=== PATIENT | female | born 1955 | race Two or more races ===

== ENCOUNTER 2024-09-05 09:42 | Outpatient (OUT) | payer MEDICARE, SELFPAY ==
--- NOTE | 2024-09-05 09:53 | CT_ITS ---
[address] [address] Patient Name: MARGARETTE RUDD MRN: [id number] date: 1955 Sex: F Assigned Patient Location: CT Current Patient Location: Accession/Order Number: [id number] Exam Date: 09/05/2024 09:58 Report Date: 09/06/2024 06:56 At the request of: NON-STAFF PHYSICIAN Procedure: CT head/brain wo con EXAMINATION: CT head/brain wo con HISTORY: Subarachnoid Hemorrhage follow-up COMPARISON: No relevant comparison available. TECHNIQUE: Axial CT images were obtained without IV contrast. Dose reduction techniques were achieved by using automated exposure control and/or adjustment of mA and/or kV according to patient size and/or use of iterative reconstruction technique. FINDINGS: BRAIN: No edema, hemorrhage, mass, acute infarction, or inappropriate atrophy. CSF SPACES: No hydrocephalus, subarachnoid hemorrhage, or mass. Appropriate for age. SKULL: No fracture, mass, or other significant visible lesion. SINUSES: No significant mucosal thickening or fluid on the limited views. ORBITS: No appreciable abnormality on the limited views. OTHER: Negative CT/CT head/brain wo con IMPRESSION: 1. Normal CT appearance the brain. 2. No subarachnoid hemorrhage or residual findings. No prior studies or reports for comparison. Electronically authenticated by: SYLVESTER ONTIVEROS Date: 09/06/2024 06:56
== END 2024-09-05 09:43 | disposition home or self-care (01) ==
LOC: CT 09:46
PROVIDERS: PCP Internal Medicine
DX: I60.9 Nontraumatic subarachnoid hemorrhage, unspecified (principal)
CPT/HCPCS: 70450

== ENCOUNTER 2025-03-03 08:55 | Outpatient (OUT) | payer MEDICARE, SELFPAY | END 2025-03-03 08:56 | disposition home or self-care (01) | LOC: PST 08:55 | PROVIDERS: PCP Internal Medicine; Visit Provider Surgery | DX: Z01.818 Encounter for other preprocedural examination (principal); R19.5 Other fecal abnormalities ==

== ENCOUNTER 2025-03-11 06:30 | Day surgery (SDC) | payer MEDICARE, SELFPAY ==
--- OUTSIDE RECORDS SUMMARY | 2025-02-23 07:15 | XMS_ITS ---
Author Organization [facility] Address [address] [place] [id number] Care Team Providers Care Magnetic Tape Winder Name Role Phone BeltranBob banegasy Unavailable [phone] Dasia Riojas Unavailable [phone] REASON FOR VISIT 3 month f/u Social History Sex Assigned At : Social History Observation Description Sex Assigned At Female Encounters Encounter Location Date Provider Diagnosis Main [address] [place] [id number] 02/23/2025 Dasia Riojas Plan Of Treatment Next Appt Details Provider Name:Krista galeas, 07/16/2025 08:45:00 AM, [address] [place] [address], [phone], Progress Notes * Briseida RUDDDOB:1955 ([age] yo F)Acc No.[id number]:02/23/2025 Patient: Briseida CHEN Provider: BREEZY Justice :1955 A ge:69 Y S ex:Female Date:02/23/2025 Address:[address] [place], [place] [id number] Subjective: * Chief Complaints: * 1 . 3 month f/u. * Medical History: Objective: * Vitals: Assessment: Plan: * Treatment: Care Plan: * Problems: * Billing Information: * Visit Code: * Procedure Codes: Care Plan Details* * Electronic signature of BREEZY Gill on 03/11/2025 at 06:34 AM EDT Sign off status: Pending * Provider: OLGA Justice-JENAE Date: 0 02/23/2025 Generated for Daisy tran/Sierra/Hugo on: 0 03/11/2025 06:34 AM EDT
--- NOTE | 2025-03-11 | OP_ITS ---
OPERATION DATE: 03/11/2025 PREOPERATIVE DIAGNOSIS: Positive Cologuard. POSTOPERATIVE DIAGNOSIS: A 2 cm cecal mass, friable, sessile and 7 mm pedunculated sigmoid polyp. PROCEDURE: Colonoscopy to cecum with multiple biopsies of cecal mass and a hot snare polypectomy with clip for sigmoid polyp. SURGEON: Franko Ha M.D. ANESTHESIA: Monitored anesthesia care. ESTIMATED BLOOD LOSS: Less than 3 mL. INDICATIONS AND CONSENT: Patient is a 69-year-old female presents for positive Cologuard. She did have normal colonoscopy three years ago. Indications, risks, benefits, alternatives of proceeding with colonoscopy were explained extensively to the patient, including the risks of bleeding, colon perforation or anesthetic complications. All of her questions were answered. Informed consent was obtained. PROCEDURE: Patient brought to the operating room, placed in the left lateral decubitus position. Monitored anesthesia care was provided. Rectal exam was performed which showed no masses or blood. The scope was inserted into the anal canal. Under direct visualization was advanced. With the aid of abdominal compression, it was advanced to the cecum where cecal markings were clearly identified. Within the cecal bulb, there was noted to be a friable, sessile, irregular 2 cm mass around a fold. This was biopsied multiple times with good hemostasis. Upon withdrawal of the scope, mucosal surfaces were carefully examined. There were no other mass lesions. Within the distal sigmoid, there was noted to be a 7 mm pedunculated polyp. This was removed with hot snare. There was some bleeding from the site. A clip was attempted to be placed. Due to patient retching at the time, it was placed adjacent to the stalk; however, after copious irrigation and examination of the stalk, there appeared to be no further active bleeding. The scope was retroflexed in the anal canal. There was no significant hemorrhoidal disease. The scope was then withdrawn. Patient tolerated procedure well, was sent to recovery room in good condition. Follow up colonoscopy will depend on pathology and likely be one year from treatment of the cecal mass. CC: Thomas Valente D.O. [place]
--- OUTSIDE RECORDS SUMMARY | 2025-03-11 06:34 | XMS_ITS | Encounter Summary ---
Author Organization [facility] Address [address] [place] [address] Care Team Providers Care Detail Manager Name Role Phone Stacey Mora MD Primary Care Provider [phone] Pcp, No PARTRIDGE FARMER Primary Care Provider Unavailabl e Pcp, No PARTRIDGE FARMER Primary Care Provider Unavailabl e Source Comments In the event this information is protected by the Federal Confidentiality of Alcohol and Drug AbusePatient Records regulations: The Federal rules restrict any use of the information to criminally investigate or prosecute any alcohol or drug abuse patient.[facility] Encounter Details Date Type Department Care Team (Late st Contact Info) Description 06/10/2015 Abstract [facility] [address] [place] [address] Huseyin Oakes MD [address] [place] [address] Social History Tobacco Use Types Packs/Day Years Used Date Smoking Tobacco: Never Smokeless Tobacco: Never Alcohol Use Standard Drinks/Week Comments No 0 (1 standard drink = 0.6 oz pur e alcohol) Comments No Sex and Gender Information Value Date Recorded Sex Assigned at Not on file Legal Sex Female 5:43 PM EDT Gender Identity Not on file Sexual Orientation Not on file documented as of this encounter Functional Status * Are you deaf or do you have serious difficulty hearing? Answer Date of Assessment Author No 05/11/2015 10:02 AM EDT Martine Dumont APRN.TERRITORY DEVELOPMENT MANAGER * Are you blind or do you have serious difficulty seeing, even when wearing glasses? Answer Date of Assessment Author No 05/11/2015 10:02 AM EDT Martine Dumont APRN.TERRITORY DEVELOPMENT MANAGER * Do you have serious difficulty walking or climbing stairs? Answer Date of Assessment Author No 05/11/2015 10:02 AM EDT Martine Dumont APRN.TERRITORY DEVELOPMENT MANAGER * Do you have difficulty dressing or bathing? Answer Date of Assessment Author No 05/11/2015 10:02 AM EDT Martine Dumont APRN.TERRITORY DEVELOPMENT MANAGER * Because of a physical, mental, or emotional condition, do you have difficulty doing errands alone such as visiting a doctor's office or shopping? Answer Date of Assessment Author No 05/11/2015 10:02 AM EDT Martine Dumont APRN.TERRITORY DEVELOPMENT MANAGER documented as of this encounter Mental Status * Because of a physical, mental, or emotional condition, do you have serious difficulty concentrating, remembering, or making decisions? Answer Entry Date Author No 05/11/2015 10:02 AM EDT Martine Dumont APRN.TERRITORY DEVELOPMENT MANAGER documented in this encounter Plan of Treatment Not on file documented as of this encounter Visit Diagnoses Not on filedocumented in this encounter Care Teams Detail Manager Relationship Specialty Start Date End Date Stacey Mora MD [address] [place] [address] PCP - General Family Medicine 05/18/14 07/19/16 PcpEmi APRN PCP - General Internal Medicine 07/20/16 02/18/17 PcpEmi PARTRIDGE FARMER PCP - General Family Medicine 04/03/17 10/21/17 documented as of this encounter
--- OUTSIDE RECORDS SUMMARY | 2025-03-11 06:34 | XMS_ITS | Encounter Summary ---
Author Organization [facility] Address [address] [place] [address] Care Team Providers Care Public Health Aide Name Role Phone Unavailable Primary Care Provider Unavailabl e Source Comments In the event this information is protected by the Federal Confidentiality of Alcohol and Drug AbusePatient Records regulations: The Federal rules restrict any use of the information to criminally investigate or prosecute any alcohol or drug abuse patient.[facility] Reason for Visit * Reason Comments Symptoms Patient fell through a pavillion on Jul 17, 2024 Encounter Details Date Type Department Care Team (Late st Contact Info) Description 08/25/2024 Telephone [facility] [address] [place] [address] Kartik Child MD [address] [place] [address] Symptoms (Patient fell through a pavillion on Jul 17, 2024 ) Social History Tobacco Use Types Packs/Day Years [...] hearing? Answer Date of Assessment Author No 05/31/2016 2:14 PM EDT Garland Kaur RN * Are you blind or do you have serious difficulty seeing, even when wearing glasses? Answer Date of Assessment Author No 05/31/2016 2:14 PM EDT Garland Kaur RN * Do you have serious difficulty walking or climbing stairs? Answer Date of Assessment Author No 05/31/2016 2:14 PM EDT Garland Kaur RN * Do you have difficulty dressing or bathing? Answer Date of Assessment Author No 05/31/2016 2:14 PM EDT Garland Kaur RN * Because of a physical, mental, or emotional condition, do you have difficulty doing errands alone such as visiting a doctor's office or shopping? Answer Date of Assessment Author No 05/31/2016 2:14 PM EDT Garland Kaur RN documented as of this encounter Mental Status * Because of a physical, mental, or emotional condition, do you have serious difficulty concentrating, remembering, or making decisions? Answer Entry Date Author No 05/31/2016 2:14 PM EDT Garland Kaur RN documented in this encounter Miscellaneous Notes * Telephone Encounter - Ni Allison RN - 08/25/2024 11:29 AM EST Spoke with Briseida, states she fell about a month ago and still have pain associated with the fall. She was wondering if she needs to f/u with Dr. Child. She does state that she has a f/u appt. With herlocal neurologist. She will let us know if she needs to f/u with Danyell in the near future after meeting with her Dr. Hunter * Telephone Encounter - Rosalba Alvarado - 08/25/2024 9:09 AM EST CV PHONE Name of caller : Briseida Relationship to patient : Self If not self Will need patient permission to release results or disclose health information with called documented in fyi. Patient identified by Name and Date of . ( Briseida Turner, 1955). Yes Number to return call [phone] Reason for Call: Symptoms Call: Symptoms: patient states she still feels a little light headed, neck is real soar, right knee hurts, shoulder was messed up, small fracture in back, since she fell through a roof on a pavilion on Jul 17 she hit a beam and then hit the concrete and was rushed to the hospital and stayed there for 5 days and had a brain bleed and want to know if she should make an appointment to see Dr. Child. Duration: >48 hours Progression: worse Pain level: 0 on a scale of 0-10. Neck is an 8 Type of pain (feels like): aching Frequency: intermittent Location of pain: neck and knee and back has a crack [facility] Thank you calling [facility]. You will receive a return call within 48hours ( or 2 business days if close to the weekend). If you feel that this is an urgent issue and needs immediate attention, it is recommended that you contact your primary care provider office or proceed to your nearest Urgent Care Center of Emergency Room ED for evaluation/treatment. documented in this encounter Plan of Treatment Not on file documented as of this encounter Visit Diagnoses Not on filedocumented in this encounter
--- OUTSIDE RECORDS SUMMARY | 2025-03-11 06:34 | XMS_ITS | Clinical Summary ---
Author Organization [facility] Address [address] [place] [address] Care Team Providers Care Kiln Transfer Operator Name Role Phone Thomas Valente Primary Care Provider Allergies No known active allergies Medications albuterol (PROVENTIL) (5 MG/ML) 0.5% nebulizer solution Take 0.5 mLs by nebulization every 6 hours as needed for Wheezing Active cetirizine (ZYRTEC) 10 MG tablet Take 1 tablet by mouth daily Active omeprazole (PRILOSEC) 20 MG delayed release capsule Take 1 capsule by mouth daily Active montelukast (SINGULAIR) 10 MG tablet Take 1 tablet by mouth nightly Active aspirin 81 MG chewable tablet Take 1 tablet by mouth daily 30 tablet 3 4 Active butalbital-acet aminophen-caffe ine (FIORICET, ESGIC) 50-325-40 MG per tabletIndicatio ns:Subarachnoid hemorrhage (HCC) Take 1 tablet by mouth every 4 hours as needed for Headaches Max Daily Amount: 6 tablets 30 tablet 4 Active gabapentin (NEURONTIN) 300 MG capsule Take 1 capsule by mouth 3 times daily for 7 days. 21 capsule 4 Active sennosides-docu sate sodium (SENOKOT-S) 8.6-50 MG tablet Take 1 tablet by mouth 2 times daily 60 tablet 4 Active Active Problems Problem Noted Date Diagnosed Date Subarachnoid hemorrhage 07/17/2024 Sternal fracture 07/17/2024 Traumatic cephalohematoma 07/17/2024 Social History Tobacco Use Types Packs/Day Years Used Date Smoking Tobacco: Never Smokeless Tobacco: Never Tobacco Cessation:Counseling Given: Not Answered Alcohol Use Standard Drinks/Week Comments Not Currently 0 (1 standard drink = 0.6 oz pur e alcohol) occasional [facility] Utilities Answer Date Recorded In the past 12 months has th e electric, gas, oil, or water company threatened to shut off services in your home? Patient declined 07/17/2024 AUDIT-C Answer Date Recorded Q1: How often do you have a drink containing alcohol? Never 07/17/2024 Q2: How many drinks containi ng alcohol do you have on a typical day when you are drinking? Patient does not drink Q3: How often do you have si x or more drinks on one occasion? Never 07/17/2024 Hunger Vital Sign Answer Date Recorded Within the past 12 months, y ou worried that your food would run out before you got the money to buy more. Patient declined Within the past 12 months, t he food you bought just didn't last and you didn't have money to get more. Patient declined PRAPARE - Transportation Answer Date Re corded In the past 12 months, has l ack of transportation kept you from medical appointments or from getting medications? Patient declined 07/17/2024 In the past 12 months, has l ack of transportation kept you from meetings, work, or from getting things needed for daily living? Patient declined 07/17/2024 Housing Stability Vital Sign Answer Wally e Recorded In the last 12 months, was t here a time when you were not able to pay the mortgage or rent on time? Patient declined 07/17/20 24 In the past 12 months, how m any times have you moved where you were living? 0 07/17/2024 At any time in the past 12 m [facility], were you homeless or living in a custodial (including now)? Patient declined 07/17/2024 Food Insecurity Answer Date Recorded Within the past 12 months, y ou worried that your food would run out before you got the money to buy more. 98 07/17/2024 Within the past 12 months, t he food you bought just didn't last and you didn't have money to get more. 98 07/17/2024 Interpersonal Safety Domain Source: IP Abuse Scr eening Answer Date Recorded Physical abuse Denies 07/17/2024 Verbal abuse Denies 07/17/2024 Emotional abuse Denies 07/17/2024 Financial abuse Denies 07/17/2024 Sexual abuse Denies 07/17/2024 Comments Unknown Sex and Gender Information Value Date Recorded Sex Assigned at Not on file Legal Sex Female 11:59 AM EST Gender Identity Not on file Sexual Orientation Not on file Last Filed Vital Signs Vital Sign Reading Time Taken Comments Blood Pressure 150/84 09/29/2024 10:31 AM EST Pulse 81 09/29/2024 10:31 AM EST Temperature 36.2 C (97.1 F) 07/21/2024 10:56 AM EDT Respiratory Rate 15 09/29/2024 10:31 AM EST Oxygen Saturation 97% 07/21/2024 10:56 AM EDT Inhaled Oxygen Concentration - - Weight 66.7 kg (147 lb) 09/29/2024 10:31 AM EST Height 160 cm (5' 3 ) 09/29/2024 10:31 AM EST Body Mass Index 26.04 09/29/2024 10:31 AM EST Plan of Treatment Health Maintenance Due Date Last Done Comments Depression Screen 1968 Hepatitis C screen 1974 Lipids 1996 Colonoscopy 2001 Colorectal Cancer Screen 2001 FIT/FOBT: Average risk 2001 Fecal-DNA (Cologuard): Average risk 2001 Sigmoidoscopy/CT colonography 2001 COVID-19 Vaccine ( season) 2024 Annual Wellness Visit (Medicare Advantage) 10/22/2024 Flu vaccine (Season Ended) 05/22/202509/02, 08/17/2020, 10/09/2018 A1C test (Diabetic or Prediabetic) 07/17/2025 07/17/2024 Breast cancer screen 07/16/2026 07/16/2024, 02/01/2023, 08/03/2021, Additional history exists Pneumococcal 50+ years Vaccine (3 of 3 - PCV20 or PCV21) 09/02/2026 09/02/2021, 04/25/2012, 02/20/2008 DTaP/Tdap/Td vaccine (2 - Td or Tdap) 11/04/2028 11/04/2018 Respiratory Syncytial Virus (RSV) or age 60 yrs+ (1 - 1-dose 75+ series) 2031 DEXA (modify frequency per FRAX score) Completed 08/03/2021 Shingles vaccine Completed 04/03/2022, 02/07/2022 Hepatitis A vaccine Aged Out No longe r eligible based on patient's age to complete this topic Hepatitis B vaccine Aged Out No longe r eligible based on patient's age to complete this topic Hib vaccine Aged Out No longer eligi ble based on patient's age to complete this topic Meningococcal (ACWY) vaccine Aged Out No longer eligible based on patient's age to complete this topic Meningococcal B vaccine Aged Out No l onger eligible based on patient's age to complete this topic Polio vaccine Aged Out No longer elig ible based on patient's age to complete this topic Procedures Procedure Name Priority Date/Time Associated Diagnosis Comments HEMOGLOBIN A1C STAT 07/17/2024 1:16 PM EDT from Last 3 Months or Most Recently Relevant to Health Maintenance Results * Hemoglobin A1C (07/17/2024 1:16 PM EDT) Hemoglobin A1C 6.0 4.0 - 6.0 % 07/17/2024 1:16 PM EDT [facility] Estimated Avg Glucose 126 mg/dL 07/17/2024 1:16 PM EDT [facility] Comment: The ADA and AACC recommend providing the estimated average glucose result to permit better patient understanding of their HBA1c result. 07/17/2024 1:16 PM EDT 07/17/2024 1:21 PM EDT us Nelson Lo MD CHEMISTRY ORDERABLES Final Resu lt [facility] [address] [place] [address], [facility] [phone] from Last 3 Months or Most Recently Relevant to Health Maintenance Insurance [employer] MEDICARE Advance Directives * Full Code (Latest Code Status on File) Date Activated Date Inactivated Comments 07/17/2024 4:51 PM 07/21/2024 5:53 PM Healthcare Agents on File Name Relationship Healthcare Agent Relationshi p Communication Rah Foy Unknown Primary Decision Maker Kamran Foy Child Secondary Decision Maker Care Teams Kiln Transfer Operator Relationship Specialty Start Date End Date Thomas Valente DO [facility] [place] [address] PCP - General Internal Medicine 08/27/24
--- OUTSIDE RECORDS SUMMARY | 2025-03-11 06:34 | XMS_ITS | Encounter Summary ---
Author Organization [facility] Address [address] [place] [address] Care Team Providers Care Crossing Guard Name Role Phone Stacey Mora MD Primary Care Provider [phone] Pcp, No SOLAR WATER HEATER INSTALLER Primary Care Provider Unavailabl e Pcp, No SOLAR WATER HEATER INSTALLER Primary Care Provider Unavailabl e Source Comments In the event this information is protected by the Federal Confidentiality of Alcohol and Drug AbusePatient Records regulations: The Federal rules restrict any use of the information to criminally investigate or prosecute any alcohol or drug abuse patient.[facility] Encounter Details Date Type Department Care Team (Late st Contact Info) Description 03/09/2015 Abstract [facility] [address] [place] [address] aKhlil Cerna MD [address] [place] [id number] Social History Tobacco Use Types Packs/Day Years [...] hearing? Answer Date of Assessment Author No 02/19/2015 11:00 AM Ariana Gray MA * Are you blind or do you have serious difficulty seeing, even when wearing glasses? Answer Date of Assessment Author No 02/19/2015 11:00 AM Ariana Gray MA * Do you have serious difficulty walking or climbing stairs? Answer Date of Assessment Author No 02/19/2015 11:00 AM Ariana Gray MA * Do you have difficulty dressing or bathing? Answer Date of Assessment Author No 02/19/2015 11:00 AM Ariana Gray MA * Because of a physical, mental, or emotional condition, do you have difficulty doing errands alone such as visiting a doctor's office or shopping? Answer Date of Assessment Author No 02/19/2015 11:00 AM Ariana Gray MA documented as of this encounter Mental Status * Because of a physical, mental, or emotional condition, do you have serious difficulty concentrating, remembering, or making decisions? Answer Entry Date Author No 02/19/2015 11:00 AM Ariana Gray MA documented in this encounter Plan of Treatment Not on file documented as of this encounter Visit Diagnoses Not on filedocumented in this encounter Care Teams Crossing Guard Relationship Specialty Start Date End Date Stacey Mora MD [address] [place] [address] PCP - General Family Medicine 05/18/14 07/19/16 PcpEmi APRN PCP - General Internal Medicine 07/20/16 02/18/17 PcpEmi SOLAR WATER HEATER INSTALLER PCP - General Family Medicine 04/03/17 10/21/17 documented as of this encounter
--- OUTSIDE RECORDS SUMMARY | 2025-03-11 06:34 | XMS_ITS | Encounter Summary ---
Author Organization [facility] Address [address] [place] [address] Care Team Providers Care Mail Carriers Supervisor Name Role Phone Stacey Mora MD Primary Care Provider [phone] Pcp, No MIDDLE SCHOOL LIBRARIAN Primary Care Provider Unavailabl e Pcp, No MIDDLE SCHOOL LIBRARIAN Primary Care Provider Unavailabl e Source Comments In the event this information is protected by the Federal Confidentiality of Alcohol and Drug AbusePatient Records regulations: The Federal rules restrict any use of the information to criminally investigate or prosecute any alcohol or drug abuse patient.[facility] Encounter Details Date Type Department Care Team (Late st Contact Info) Description 05/31/2015 Abstract [facility] [address] [place] [address] Huseyin Oakes MD [address] [place] [address] Social History Tobacco Use Types [...] No 05/11/2015 10:02 AM EDT Martine Dumont APRN.COLOR SHOP HELPER * Are you blind or do you have serious difficulty seeing, even when wearing glasses? Answer Date of Assessment Author No 05/11/2015 10:02 AM EDT Martine Dumont APRN.COLOR SHOP HELPER * Do you have serious difficulty walking or climbing stairs? Answer Date of Assessment Author No 05/11/2015 10:02 AM EDT Martine Dumont APRN.COLOR SHOP HELPER * Do you have difficulty dressing or bathing? Answer Date of Assessment Author No 05/11/2015 10:02 AM EDT Martine Dumont APRN.COLOR SHOP HELPER * Because of a physical, mental, or emotional condition, do you have difficulty doing errands alone such as visiting a doctor's office or shopping? Answer Date of Assessment Author No 05/11/2015 10:02 AM EDT Martine Dumont APRN.COLOR SHOP HELPER documented as of this encounter Mental Status * Because of a physical, mental, or emotional condition, do you have serious difficulty concentrating, remembering, or making decisions? Answer Entry Date Author No 05/11/2015 10:02 AM EDT Martine Dumont APRN.COLOR SHOP HELPER documented in this encounter Plan of Treatment Not on file documented as of this encounter Visit Diagnoses Not on filedocumented in this encounter Care Teams Mail Carriers Supervisor Relationship Specialty Start Date End Date Stacey Mora MD [address] [place] [address] PCP - General Family Medicine 05/18/14 07/19/16 PcpEmi APRN PCP - General Internal Medicine 07/20/16 02/18/17 PcpEmi MIDDLE SCHOOL LIBRARIAN PCP - General Family Medicine 04/03/17 10/21/17 documented as of this encounter
--- OUTSIDE RECORDS SUMMARY | 2025-03-11 06:34 | XMS_ITS | Clinical Summary ---
Author Organization [facility] Address [id number] [address] [place] [address] Care Team Providers Care Learning Design Specialist Name Role Phone Ambrosio Wright DO, Charles L Primary Care Provider Allergies No known active allergies Medications estradioL (ESTRACE) 1 mg tablet Take 1 tablet by mouth once daily 30 tablet 06/09/2021 Active omeprazole (PriLOSEC) 20 mg capsule Take 20 mg by mouth daily. Active calcium carbonate-vitami n D3 (CALCIUM 500 + D) 500 mg(1,250mg) -200 units per tablet Take 1 tablet by mouth 2 (two) times a day with meals. Active cholecalciferol, vitamin D3, 400 units tablet Take 400 Units by mouth daily. Active montelukast (SINGULAIR) 10 mg tablet Take 10 mg by mouth nightly. Active aspirin 81 mg Take 81 mg by mouth daily. Active cetirizine (ZyrTEC) 10 mg tablet Take 10 mg by mouth daily. Active sertraline (ZOLOFT) 50 mg tablet Take 50 mg by mouth daily. Active albuterol (PROVENTIL HFA;VENTOLIN HFA) 90 mcg/actuation inhaler Inhale 2 puffs every 6 (six) hours as needed for wheezing. Active qnpflcsl-afdd-OR -calcium &mins (THERAGRAN-M) 9 mg iron-400 mcg tablet Take 1 tablet by mouth daily. Active Family History Medical History Relation Name Comments Breast cancer Neg Hx Social History Tobacco Use Types Packs/Day Years Used Date Smoking Tobacco: Never Assessed Smokeless Tobacco: Never Alcohol Use Standard Drinks/Week Comments Defer 0 (1 standard drink = 0.6 oz pur e alcohol) Childcare Answer Date Recorded Childcare Unknown 04/02/2019 Employment Answer Date Recorded Employment Unknown 04/02/2019 Purpose - Life Answer Date Recorded Purpose and direction in life Unknown Comments No Sex and Gender Information Value Date Recorded Sex Assigned at Female 12/15/2021 4:29 AM EST Legal Sex Female 11:39 AM EDT Gender Identity Not on file Sexual Orientation Not on file Last Filed Vital Signs Vital Sign Reading Time Taken Comments Blood Pressure 122/88 12/15/2021 8:45 AM EST Pulse 69 12/15/2021 8:45 AM EST Temperature 36.4 C (97.6 F) 12/15/2021 6:33 AM EST Respiratory Rate 15 12/15/2021 8:45 AM EST Oxygen Saturation 91% 12/15/2021 8:45 AM EST Inhaled Oxygen Concentration - - Weight 66.7 kg (147 lb) 07/16/2024 2:25 PM EDT Height 160 cm (5' 3 ) 07/16/2024 2:25 PM EDT Body Mass Index 26.04 07/16/2024 2:25 PM EDT Plan of Treatment Health Maintenance Due Date Last Done Comments Depression Screening 1968 Tobacco Screening 1968 Adult BMI Follow Up Plan 1974 Fall Risk Screening 2021 COVID-19 Vaccine (2023-2 5 season) 2024 09/29/2021, 02/04/2021, 01/07/2021 Influenza Vaccine 06/22/2025 08/13/2023, , 08/17/2020, Additional history exists Adult BMI Screening 07/16/2025 07/16/2024 DTaP,Tdap and Td Vaccines (2 - Td or Tdap) 11/04/2028 11/04/2018 Zoster (Shingles) Vaccine Completed 04/03/2022, Medical Devices Implanted Type Area Demolition Hammer Operator Device Identifier Shelf Expiration Date Model / Serial / Lot Other Implant Other Implant Description:pipeline flex Em bolization device - conditional 3T or less, 720 Gauss/cm or less max DAQUAN 4W/kg for 15min Insurance MEDICAID [place] [employer] MEDICARE Care Teams Learning Design Specialist Relationship Specialty Start Date End Date Thomas Valente Jr., [facility] [place] [address] PCP - General Internal Medicine 12/14/21
--- OUTSIDE RECORDS SUMMARY | 2025-03-11 06:34 | XMS_ITS | Encounter Summary ---
Author Organization [facility] Address [address] [place] [address] Care Team Providers Care In Store Marketing Representative Name Role Phone Unavailable Primary Care Provider Unavailabl e Source Comments In the event this information is protected by the Federal Confidentiality of Alcohol and Drug AbusePatient Records regulations: The Federal rules restrict any use of the information to criminally investigate or prosecute any alcohol or drug abuse patient.[facility] Encounter Details Date Type Department Care Team (Late st Contact Info) Description 2021 [place] [address] Provider, [facility] Medicare Coverage of Physical Exams Social History Tobacco Use Types Packs/Day Years [...] of Assessment Author No 05/31/2016 2:14 PM Garland Avilez RN * Do you have difficulty dressing or bathing? Answer Date of Assessment Author No 05/31/2016 2:14 PM Garland Avilez RN * Because of a physical, mental, or emotional condition, do you have difficulty doing errands alone such as visiting a doctor's office or shopping? Answer Date of Assessment Author No 05/31/2016 2:14 PM Garland Avilez RN documented as of this encounter Mental Status * Because of a physical, mental, or emotional condition, do you have serious difficulty concentrating, remembering, or making decisions? Answer Entry Date Author No 05/31/2016 2:14 PM Garland Avilez RN documented in this encounter Plan of Treatment Not on file documented as of this encounter Visit Diagnoses Not on filedocumented in this encounter
--- OUTSIDE RECORDS SUMMARY | 2025-03-11 06:34 | XMS_ITS | Encounter Summary ---
Author Organization [facility] Address [address] [place] [id number] Care Team Providers Care Nursing Unit Clerk Name Role Phone Unavailable Primary Care Provider Unavailabl e Source Comments In the event this information is protected by the Federal Confidentiality of Alcohol and Drug AbusePatient Records regulations: The Federal rules restrict any use of the information to criminally investigate or prosecute any alcohol or drug abuse patient.[facility] Encounter Details Date Type Department Care Team (Late st Contact Info) Description 05/19/2020 Patient [place] [address] Provider, Miah Out of Network Letter Social History Tobacco Use Types Packs/Day Years [...] of Assessment Author No 05/31/2016 2:14 PM DEEPAT Garland Kaur RN * Because of a [...]
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
--- OUTSIDE RECORDS SUMMARY | 2025-03-11 06:34 | XMS_ITS | Encounter Summary ---
Author Organization [facility] Address [address] [place] [address] Care Team Providers Care Die Cutter Name Role Phone Stacey Mora MD Primary Care Provider [phone] Pcp, No REAL ESTATE DIRECTOR Primary Care Provider Unavailabl e Pcp, No REAL ESTATE DIRECTOR Primary Care Provider Unavailabl e Source Comments In the event this information is protected by the Federal Confidentiality of Alcohol and Drug AbusePatient Records regulations: The Federal rules restrict any use of the information to criminally investigate or prosecute any alcohol or drug abuse patient.[facility] Encounter Details Date Type Department Care Team (Late st Contact Info) Description 03/25/2015 Abstract [facility] [address] [place] [address] Huseyin Oakes MD [address] [place] [address] Social History Tobacco Use Types [...] hearing? Answer Date of Assessment Author No 03/19/2015 3:30 PM EDT Ricardo Martines RN * Are you blind or do you have serious difficulty seeing, even when wearing glasses? Answer Date of Assessment Author No 03/19/2015 3:30 PM EDT Ricardo Martines RN * Do you have serious difficulty walking or climbing stairs? Answer Date of Assessment Author No 03/19/2015 3:30 PM EDT Ricardo Martines RN * Do you have difficulty dressing or bathing? Answer Date of Assessment Author No 03/19/2015 3:30 PM EDT Ricardo Martines RN * Because of a physical, mental, or emotional condition, do you have difficulty doing errands alone such as visiting a doctor's office or shopping? Answer Date of Assessment Author No 03/19/2015 3:30 PM EDT Ricardo Martines RN documented as of this encounter Mental Status * Because of a physical, mental, or emotional condition, do you have serious difficulty concentrating, remembering, or making decisions? Answer Entry Date Author No 03/19/2015 3:30 PM EDT Ricardo Martines RN documented in this encounter Plan of Treatment Not on file documented as of this encounter Visit Diagnoses Not on filedocumented in this encounter Care Teams Die Cutter Relationship Specialty Start Date End Date Stacey Mora MD [address] [place] [address] PCP - General Family Medicine 05/18/14 07/19/16 PcpEmi REAL ESTATE DIRECTOR PCP - General Internal Medicine 07/20/16 02/18/17 PcpEmi, REAL ESTATE DIRECTOR PCP - General Family Medicine 04/03/17 10/21/17 documented as of this encounter
--- OUTSIDE RECORDS SUMMARY | 2025-03-11 06:34 | XMS_ITS | Referral Summary ---
Author Organization [facility] Address [address] [place] [address] Care Team Providers Care Tobacco Educator Name Role Phone Unavailable Primary Care Provider Unavailabl e Encounters Date Type Department Care Team Description 01/07/2025 - 01/07/2025 11:59 PM EDT Hospital Encounter [facility] Radiology External Films [address] [place] [address] Discharge Disposition: Home or Self Care (01) 01/01/2025 9:20 AM EDT Follow-Up [facility] [address] [place] [address] Will Ruth MD Compression fx, thoracic spine, sequela (Primary Dx) 12/24/2024 Telephone [facility] [address] [place] [address] [place] [address] Susan Solis MA imaging order 12/18/2024 9:50 AM EST Office Visit [facility] [address] [place] [address] Will Ruth MD Spondylolisthesis at L4-L5 level (Primary Dx); 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 from Last 3 Months Allergies No known active allergies Social History Tobacco Use Types Packs/Day Years Used Date Smoking Tobacco: Never Tobacco Cessation:Counseling Given: Not Answered Alcohol Use Standard Drinks/Week Comments Not Currently 3 (1 standard drink = 0.6 oz pur e alcohol) IN Safety & Environment Answer Date Rec orded Fear of Current or Ex-Partner Not on file Emotionally Abused Not on file 12/13/2023 Physically Abused Not on file 12/13/2023 Sexually Abused Not on file 12/13/2023 Physically or Sexually Abused Not on file Sex and Gender Information Value Date Recorded Sex Assigned at Not on file Gender Identity Not on file Sexual Orientation Not on file Last Filed Vital Signs Vital Sign Reading Time Taken Comments Blood Pressure 124/75 12/27/2021 11:12 AM EST Pulse 82 12/27/2021 11:12 AM EST Temperature - - Respiratory Rate - - Oxygen Saturation - - Inhaled Oxygen Concentration - - Weight 72.6 kg (160 lb) 01/01/2025 1:54 PM EDT Height 160 cm (5' 3 ) 01/01/2025 1:54 PM EDT Body Mass Index 28.34 01/01/2025 1:54 PM EDT Plan of Treatment Not on file Procedures Procedure Name Priority Date/Time Associated Diagnosis Comments MR TRANSFER OF OUTSIDE FILMS Routine 01/07/2025 12:00 AM EDT from Last 3 Months Results * MR transfer of outside films (01/07/2025 12:00 AM EDT) Narrative IMAGING - 01/07/2025 9:21 AM EDT This order has been auto-finalized and does not contain a result. Will Ruth MD IMG MRI PROCEDURES IMAGING from Last 3 Months
--- OUTSIDE RECORDS SUMMARY | 2025-03-11 06:34 | XMS_ITS | Encounter Summary ---
Author Organization [facility] Address [address] [place] [address] Care Team Providers Care Blood Bank Laboratory Technician Name Role Phone Thomas Valente Primary Care Provider + [phone] Encounter Details Date Type Department Care Team ([facility] st Contact Info) Description 09/23/2024 Transcribe Orders [facility] [address] [place] [address] Wyatt Chowdhury Social History Tobacco Use Types Packs/Day Years Used Date Smoking Tobacco: Never Smokeless Tobacco: Never Alcohol Use Standard Drinks/Week Comments Yes 0 (1 standard drink = 0.6 oz pur e alcohol) occasional [facility] Utilities Answer Date Recorded In the past 12 months has [employer], gas, oil, or water company threatened [...] any time in the past [address] [facility], were you homeless or living in a prison (including now)? Patient declined 07/17/2024 Food Insecurity [...] on file documented as of this encounter Plan of Treatment Not on file documented as of this encounter Visit Diagnoses Not on filedocumented in this encounter Care Teams Blood Bank Laboratory Technician Relationship Specialty Start Date End Date Thomas Valente DO [address] [place] [phone] PCP - General Internal Medicine 08/27/24 documented as of this encounter
--- OUTSIDE RECORDS SUMMARY | 2025-03-11 06:34 | XMS_ITS | Encounter Summary ---
Author Organization [facility] Address [address] [place] [address] Care Team Providers Care Maintenance Supervisor Name Role Phone Stacey Mora MD Primary Care Provider [phone] Pcp, No DUMBWAITER OPERATOR Primary Care Provider Unavailabl e Pcp, No DUMBWAITER OPERATOR Primary Care Provider Unavailabl e Source Comments In the event this information is protected by the Federal Confidentiality of Alcohol and Drug AbusePatient Records regulations: The Federal rules restrict any use of the information to criminally investigate or prosecute any alcohol or drug abuse patient.[facility] Encounter Details Date Type Department Care Team (Late st Contact Info) Description 04/16/2015 Abstract [facility] [address] [place] [address] Huseyin Oakes MD [address] [place] [address] Social History Tobacco Use Types [...] hearing? Answer Date of Assessment Author No 03/26/2015 2:35 PM EDT Colten Pérez MA * Are you blind or do you have serious difficulty seeing, even when wearing glasses? Answer Date of Assessment Author No 03/26/2015 2:35 PM EDT Colten Pérez MA * Do you have serious difficulty walking or climbing stairs? Answer Date of Assessment Author No 03/26/2015 2:35 PM EDT Colten Pérez MA * Do you have difficulty dressing or bathing? Answer Date of Assessment Author No 03/26/2015 2:35 PM EDT Colten Pérez MA * Because of a physical, mental, or emotional condition, do you have difficulty doing errands alone such as visiting a doctor's office or shopping? Answer Date of Assessment Author No 03/26/2015 2:35 PM EDT Colten Pérez MA documented as of this encounter Mental Status * Because of a physical, mental, or emotional condition, do you have serious difficulty concentrating, remembering, or making decisions? Answer Entry Date Author No 03/26/2015 2:35 PM EDT Colten Pérez MA documented in this encounter Plan of Treatment Not on file documented as of this encounter Visit Diagnoses Not on filedocumented in this encounter Care Teams Maintenance Supervisor Relationship Specialty Start Date End Date Stacey Mora MD [address] [place] [address] PCP - General Family Medicine 05/18/14 07/19/16 Pcp, Emi, DUMBWAITER OPERATOR PCP - General Internal Medicine 07/20/16 02/18/17 Pcp, No, DUMBWAITER OPERATOR PCP - General Family Medicine 04/03/17 10/21/17 documented as of this encounter
--- OUTSIDE RECORDS SUMMARY | 2025-03-11 06:34 | XMS_ITS | Clinical Summary ---
Author Organization [facility] Address [address] [place] [address] Care Team Providers Care Sound Installation Worker Name Role Phone Thomas Valente MD Primary Care Provider + [phone] Allergies No known active allergies Medications albuterol HFA 90 mcg/act inhaler Inhale 2 puffs in the morning and 2 puffs before bedtime. 4 Active aspirin 325 MG tablet Take 325 mg by mouth Daily Active montelukast (Singulair) 10 MG tablet Take 10 mg by mouth Daily Active naproxen (Naprosyn) 500 MG tablet Take 500 mg by mouth in the morning and 500 mg in the evening. Take with meals. 3 Active omeprazole (PriLOSEC) [address] capsule Take 20 mg by mouth Daily Active Peak Air Peak Flow Meter device USE DIRECTED 4 Active phentermine (Adipex-P) 37.5 MG tablet Take 37.5 mg by mouth in the morning. Take before meals. 4 Active revefenacin (Yupelri) 175 MCG/3ML nebulizer solution Take 175 mcg by nebulization 1 (one) time each day at the same time Active rosuvastatin (Crestor) 5 MG tablet Take 5 mg by mouth Daily 4 Active traZODone (Desyrel) 150 MG tablet Take 150 mg by mouth at bedtime 3 Active ibuprofen 600 MG tablet Take 600 mg by mouth every 8 (eight) hours Active Active Problems Problem Noted Date Diagnosed Date Age-related nuclear cataract of left eye 024 Nuclear senile cataract 02/18/2024 Dermatochalasis of left upper eyelid 02/18/2024 Epiretinal membrane 02/18/2024 Excess skin of eyelid 02/18/2024 Pseudophakia 02/18/2024 Retinal hemorrhage 02/18/2024 Lipoma of right thigh 07/20/2016 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 Postop hypoxia requiring supplemental oxygen. PLAN: -Wean oxygen to keep oxygen saturation above 93% -Desat study 03/19/15: home oxygen needed; 2L at rest and 3 L with exertion A face to face encounter was performed during this hospital admission regarding the need for oxygen. The patient verbalized understanding and consents to this therapy . Acute postoperative pain 03/17/2015 Overview (02/18/2024): Status post thoracotomy, resection mediastinal mass on 03/16/15. Currently has pleural marely drain in place. Current regimen: fentanyl/bupivicaine epidural [...] daily prn. . Intracranial aneurysm 01/05/2015 Overview (02/18/2024): Unruptured left supraclinoid ICA aneurysm 05/10 . Social History Tobacco Use Types Packs/Day Years Used Date Smoking Tobacco: Never Smokeless Tobacco: Never Tobacco Cessation:Counseling Given: Not Answered Alcohol Use Standard Drinks/Week Comments Not Currently 0 (1 standard drink = 0.6 oz pur e alcohol) Comments Unknown Sex and Gender Information Value Date Recorded Sex Assigned at Not on file Legal Sex Female 7:29 PM EDT Gender Identity Not on file Sexual Orientation Not on file Last Filed Vital Signs Vital Sign Reading Time Taken Comments Blood Pressure 132/80 10/27/2021 12:00 PM EST Pulse - - Temperature - - Respiratory Rate - - Oxygen Saturation - - Inhaled Oxygen Concentration - - Weight 68 kg (150 lb) 02/18/2024 1:55 PM EDT Height 160 cm (5' 3 ) 02/18/2024 1:55 PM EDT Body Mass Index 26.57 02/18/2024 1:55 PM EDT Plan of Treatment Health Maintenance Due Date Last Done Comments CT Colonography 1956 FIT-DNA 1956 FIT 1955 FOBT 1955 Sigmoidoscopy 1955 Influenza Vaccine (Season Ended) 2025 09/02/2021, 08/17/2020, 10/09/2018 Mammogram 07/16/2025 07/16/2024, 01/20, 08/03/2021, Additional history exists Pneumococcal Vaccine: 65+ Ye ars (3 of 3 - PCV20 or PCV21) 09/02/2026 09/02/2021, 04/25/2012, 02/20/2008 Colonoscopy 12/15/2031 12/15/2021 Colorectal Cancer Screening 12/15/2031 Procedures Procedure Name Priority Date/Time Associated Diagnosis Comments COLONOSCOPY Routine 12/15/2021 12:00 PM EST from Last 3 Months or Most Recently Relevant to Health Maintenance Results * Colonoscopy (12/15/2021 12:00 PM EST) Anatomical Region Laterality Modality Endoscopy 12/15/2021 12:0 0 PM EST Narrative 12/15/2021 12:00 PM EST PERFORMED AT [facility] LOCATION:[id number] Procedure Note CONVERSION, GENERIC - 03/07/2023 PERFORMED AT [facility] LOCATION:[id number] us Ash Rajan MD ENDOSCOPY PROCEDURE ORDERABL ES Final Result from Last 3 Months or Most Recently Relevant to Health Maintenance Insurance MEDICAID [place] [employer] MEDICARE ADVANTAGE Care Teams Sound Installation Worker Relationship Specialty Start Date End Date Thomas Valente MD [facility] [place] [address] PCP - General Internal Medicine 02/18/24
--- OUTSIDE RECORDS SUMMARY | 2025-03-11 06:34 | XMS_ITS | Encounter Summary ---
Author Organization [facility] Address [address] [place] [address] Care Team Providers Care Tanning Wheel Filler Name Role Phone Thomas Valente Primary Care Provider + [phone] Encounter Details Date Type Department Care Team (Late st Contact Info) Description 09/08/2024 Orders Only [facility] Neuroscience [place], [facility] Neurosurgery [address] [place] [address], [address] [place] [address] Provider, MD Giacomo Social History Tobacco Use Types Packs/Day Years Used Date Smoking Tobacco: Never Smokeless Tobacco: Never Alcohol Use Standard Drinks/Week Comments Yes 0 (1 standard drink = 0.6 oz pur e alcohol) occasional [facility] Utilities Answer Date Recorded In the past 12 months has [employer], gas, oil, or water company threatened [...] any time in the past 12 m [facility], were you homeless or living in a fpc (including now)? Patient declined 07/17/2024 Food Insecurity [...] on file documented as of this encounter Procedures Procedure Name Priority Date/Time Associated Diagnosis Comments CT HEAD WO CONTRAST Routine 09/06/2024 8:51 AM EST documented in this encounter Results * CT HEAD WO CONTRAST (09/06/2024 8:51 AM EST) Anatomical Region Laterality Modality Head Computed Tomogra phy us Historical Provider MD MISTRY CT ORDERABLES Final R esult documented in this encounter Visit Diagnoses Not on filedocumented in this encounter Care Teams Tanning Wheel Filler Relationship Specialty Start Date End Date Thomas Valente DO [address] [place] [address] PCP - General Internal Medicine 08/27/24 documented as of this encounter
--- OUTSIDE RECORDS SUMMARY | 2025-03-11 06:34 | XMS_ITS | Clinical Summary ---
Author Organization [facility] Address [address] [place] [address] Care Team Providers Care Hat Model Name Role Phone Unavailable Primary Care Provider Unavailabl e Allergies No known active allergies Encounters Date Type Department Care Team Description 01/07/2025 - 01/07/2025 11:59 PM EDT Hospital Encounter [facility] Radiology External Films [address] [place] [phone] Discharge Disposition: Home or Self Care (01) 01/01/2025 9:20 AM EDT Follow-Up [facility] Orthopaedics Ortho Spine [address] [place] [address] Will Ruth MD Compression fx, thoracic spine, sequela (Primary Dx) 12/24/2024 Telephone [facility] [address] [place] [address] [place] [phone] Susan Solis MA imaging order 12/18/2024 9:50 AM EST Office Visit [facility] Orthopaedic Ortho Spine [address] [place] [phone] Will Ruth MD Spondylolisthesis at L4-L5 level (Primary Dx); 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 from Last 3 Months Social History Tobacco Use Types Packs/Day Years Used Date Smoking Tobacco: Never Tobacco Cessation:Counseling Given: Not Answered Alcohol Use Standard Drinks/Week Comments Not Currently 3 (1 standard drink = 0.6 oz pur e alcohol) [place] Safety & Environment Answer Date Rec orded [...] 01/01/2025 1:54 PM EDT Plan of Treatment Health Maintenance Due Date Last Done Comments CT Colonography 1955 FIT-DNA 1956 FIT 1956 FOBT 1955 Medicare Annual Wellness (AWV) 1955 Sigmoidoscopy 1955 Depression Screening 1968 Fall Risk Screening 2021 COVID-19 Vaccine ( - 2023-2 5 season) 2024 09/29/2021, 02/04/2021, 01/07/2021 Influenza Vaccine (Season Ended) 2025 09/02/2021, 08/17/2020, 10/09/2018 Mammogram 07/16/2026 07/16/2024 Pneumococcal Vaccine: 65+ Years (3 of 3 - PPSV23 or PCV20) 09/02/2026 09/02/2021, 04/25/2012, 02/20/2008 Adult Tetanus 11/04/2028 11/04/2018 Colonoscopy 12/15/2031 12/15/2021 Colorectal Cancer Screening 12/15/2031 Zoster Vaccines Completed 04/03/2022, 02/07/2022 HIB Vaccines Aged Out No longer eligi ble based on patient's age to complete this topic HPV Vaccines Aged Out No longer eligi ble based on patient's age to complete this topic IPV Vaccines Aged Out No longer eligi ble based on patient's age to complete this topic Meningococcal B Vaccine Aged Out No l onger eligible based on patient's age to complete this topic Meningococcal Vaccine Aged Out No nohelia marquis eligible based on patient's age to complete this topic Rotavirus Vaccines Aged Out No longer eligible based on [...]
--- OUTSIDE RECORDS SUMMARY | 2025-03-11 06:34 | XMS_ITS | Encounter Summary ---
Author Organization [facility] Address [address] [place] [address] Care Team Providers Care Automotive Painter Helper Name Role Phone Thomas Valente DO Primary Care Provider [phone] Encounter Details Date Type Department Care Team (Late st Contact Info) Description 09/29/2024 Transcribe Orders [facility] [address] [place] [address] Thomas Valente DO [address] [place] [phone] Social History Tobacco Use Types Packs/Day Years Used Date Smoking Tobacco: Never Smokeless Tobacco: Never Alcohol Use Standard Drinks/Week Comments Not Currently 0 (1 standard drink = 0.6 oz pur e alcohol) occasional [facility] Utilities Answer Date Recorded In the past 12 months has [employer], gas, oil, or water [employer] threatened to shut off services in your [...] or rent on time? Patient declined 07/17/20 In the past 12 months, how m any times have you moved where you were living? 0 07/17/2024 At any time in the past 12 m onths, were you homeless or living in a snf (including now)? Patient declined 07/17/2024 Food Insecurity [...] on filedocumented in this encounter Care Teams Automotive Painter Helper Relationship Specialty Start Date End Date Thomas Valente DO [address] [place] [phone] PCP - General Internal Medicine 08/27/24 documented as of this encounter
--- OUTSIDE RECORDS SUMMARY | 2025-03-11 06:35 | XMS_ITS | CCD ---
Author Organization [facility] Care Team Providers Care Security Coordinator Name Role Phone Violeta Simpson Unavailable NONE, XXXX Primary Care Physician Unavailab TARAN Donovan Attending Provider Dorothy Chowdhury Unavailable Dorothy Chowdhury Attending Unavailable Dorothy Chowdhury Admitting Unavailable NO FAMILY, PHYSICIAN Primary Care Unavailable Christen Rose Primary Care Unavailable Rajat Greenfield Attending Unavailable Rajat Greenfield Admitting Unavailable Thomas Martin DO Primary Care Provider Thomas Martin MD Primary Care Provider [phone] MARISOL BACH Attending Unavailable TI WELLS Attending Unavailable CRISTA VENCES Referring Unavailable JOSE DANIEL PANTJOA Attending Unavailable CRISTA VENCES Referring Unavailable JOSE DANIEL PANTOJA Attending Unavailable CRISTA VENCES Referring Unavailable JOSE DANIEL PANTOJA Attending Unavailable CRISTA VENCES Referring Unavailable NELSON DOYLE Attending Unavailable NELSON DOYLE Consulting Unavailable NELSON DOYLE Admitting Unavailable EZIO BEGUM Unavailable Unavailable Primary Care Provider Unavailabl e Unavailable Primary Care Provider Unavailabl e JEFFERY RUTHSEIN Referring Unavailable WILL RUTH Attending Unavailable WILL RUTH Attending Unavailable Franko BARBER Attending Unavailable Allergies Allergy Classification Reported Allergen(s) Allergy Type Date of Onset Reaction(s) Facility (1 source) ALLERGIES NOT ON FILE; Translations: [ALLERGIES NOT ON FILE] Propensity to adverse reactions (disorder) [facility] Repository Medications Current Medications Medication Drug Class(es) Dates Sig (Normalized) Sig (Original) acetaminophen 325 mg / HYDROcodone bitartrate 5 mg oral tablet (1 source) Opioid Agonist Start: 07-20-2016 take 1-2 tablets by mouth every six hours as needed HYDROcodone-aceta minophen (NORCO) 5-325 mg per tablet Take 1-2 tablets by mouth every 6 hours as needed. 30 tablet 0 07/20/2016 Active [id number] 200 actuat albuterol 0.09 mg/actuat metered dose inhaler (14 sources) beta2-Adrenergic Agonist Start: 12-09-2023 take 2 puff(s) by inhalation in the morning albuterol HFA 90 mcg/act inhaler Inhale 2 puffs in the morning and 2 puffs before bedtime. 12/09/2023 Active albuterol (PROVE NTIL) (5 MG/ML) 0.5% nebulizer solution Take 0.5 mLs by nebulization every 6 hours as needed for Wheezing Active Albuterol Sulfat e Active Albuterol Sulfat e HFA Active aluminum hydroxide 40 mg/ml / magnesium hydroxide 40 mg/ml / simethicone 4 mg/ml oral suspension (1 source) Start: 07-17-2024 aspirin 81 mg chewable tablet (14 sources) Platelet Aggregation Inhibitor, Nonsteroidal Anti-inflammatory Drug Start: 07-31-2024 take 1 tablet by mouth once daily aspirin 81 MG chewable tablet Take 1 tablet by mouth daily 30 tablet 3 07/31/2024 Active Start: 07-31-2024 take 1 tablet by maria g th once daily aspirin 81 MG chewable tablet Take 1 tablet by mouth daily 30 tablet 3 07/31/2024 Active take 1 tablet by maria g th once daily aspirin 325 mg tablet Take 325 mg by mouth once daily. Active End: 07-19-2024 take 1 tablet by mouth once daily aspirin 81 MG chewable tablet Take 1 tablet by mouth daily 07/19/2024 Discontinued cetirizine hydrochloride 10 mg oral tablet (3 sources) Histamine-1 Receptor Antagonist take 1 tablet by mouth once daily cetirizine (ZYRTEC) 10 MG tablet Take 1 tablet by mouth daily Active escitalopram 20 mg oral tablet (1 source) Serotonin Reuptake Inhibitor Start: escitalopram oxalate (LEXAPRO) 20 mg tablet 0 07/09/2017 Active estradiol 1 mg oral tablet (2 sources) Estrogen Start: take 1 tablet by mouth once daily estradiol (ESTRACE) 1 mg tablet Take 1 mg by mouth once daily. 12/24/2014 Active Estradiol Active fluticasone / salmeterol (1 source) Corticosteroid, beta2-Adrenergic Agonist Fluticasone-Salmeter ol Active hydrOXYzine (1 source) Antihistamine hydrOXYzine HCl Active meloxicam (1 source) Nonsteroidal Anti-inflammatory Drug Meloxicam Active naproxen 500 mg oral tablet (10 sources) Nonsteroidal Anti-inflammatory Drug Start : 07-30 take 1 tablet by mouth in the morning naproxen (Naprosyn) 500 MG tablet Take 500 mg by mouth in the morning and 500 mg in the evening. Take with meals. 07/30/2023 Active nitrofurantoin, macrocrystals 25 mg / nitrofurantoin, monohydrate 75 mg oral capsule (3 sources) Nitrofuran Antibacterial Start : 07-19 End: 07-23 take 1 capsule by mouth every twelve hours nitrofurantoin, macrocrystal-monohydrate, (MACROBID) 100 MG capsule Take 1 capsule by mouth every 12 hours for 2 days 4 capsule 07/21/2024 07/23/2024 Active Start: 07-19-2024 End: 07-24-2024 100 mg, Oral, EVERY 12 HOURS SCHEDULED (2 times per day), 10 doses, First dose on Sun07/19/24 at 0900, Last dose on Sun07/23/24 at 2100, Antimicrobial Indications: Urinary Tract Infection, UTI duration of therapy: 5 days omeprazole 20 mg delayed release oral capsule (13 sources) Proton Pump Inhibitor take 1 capsule by mouth once daily omeprazole (PriLOSEC) [address] capsule Take 20 mg by mouth Daily Active Omeprazole Activ e Peak Air Peak Flow Meter device (9 sources) Start: 02-04-2024 Peak Air Peak Flow Meter device USE DIRECTED 02/04/2024 Active phentermine hydrochloride 37.5 mg oral tablet (9 sources) Sympathomimetic Amine Anorectic Start: 02-04-2024 take 1 tablet by mouth before mealtime phentermine (Adipex-P) 37.5 MG tablet Take 37.5 mg by mouth in the morning. Take before meals. 02/04/2024 Active polyethylene glycol 3350 [id number] mg powder for oral solution (2 sources) Osmotic Laxative Start: 07-17-2024 End: 08-19-2024 take 1 dose by mouth once daily polyethylene glycol (GLYCOLAX) 17 g packet Take 1 packet by mouth daily 30 packet 07/20/2024 08/19/2024 Active revefenacin 0.0583 mg/ml inhalation solution (9 sources) revefenacin (Yupelri) 175 MCG/3ML nebulizer solution Take 175 mcg by nebulization 1 (one) time each day at the same time Active rosuvastatin calcium 5 mg oral tablet (9 sources) HMG-CoA Reductase Inhibitor Start: 01-07-2024 take 1 tablet by mouth once daily rosuvastatin (Crestor) 5 MG tablet Take 5 mg by mouth Daily 01/07/2024 Active Sertraline (1 source) Serotonin Reuptake Inhibitor Sertraline HCl Active topiramate (1 source) Topiramate Activ e traZODone hydrochloride 150 mg oral tablet (9 sources) Serotonin Reuptake Inhibitor Start: 02-19-2023 take 1 tablet by mouth at bedtime traZODone (Desyrel) 150 MG tablet Take 150 mg by mouth at bedtime 02/19/2023 Active Completed/Discontinued Medications Medication Drug Class(es) Dates Sig (Normalized) Sig (Original) acetaminophen 500 mg oral tablet (1 source) Start: 07-17-2024 take 1 dose by mouth three times daily, then take 4000 mg by mouth every twenty-four hours 1,000 mg, Oral, EVERY 8 HOURS SCHEDULED (3 times per day), First dose on Jocelyn 07/17/24 at 2200, Until Discontinued, Maximum dose of acetaminophen is 4000 mg from all sources in 24 hours. acetaminophen 325 mg / butalbital 50 mg / caffeine 40 mg oral tablet (5 sources) Barbiturate, Central Nervous System Stimulant, Methylxanthine Start: 07-18-2024 End: 07-21-2024 butalbital-acetami nophen-caffeine (FIORICET, ESGIC) 50-325-40 MG per tablet Indications: Subarachnoid hemorrhage (HCC) Take 1 tablet by mouth every 4 hours as needed for Headaches Max Daily Amount: 6 tablets 180 tablet 07/19/2024 07/21/2024 Discontinued docusate sodium 50 mg / sennosides, chcf 8.6 mg oral tablet (5 sources) Start: 07-17-2024 End: 07-21-2024 take 1 tablet by mouth twice daily sennosides-docusat e sodium (SENOKOT-S) 8.6-50 MG tablet Take 1 tablet by mouth 2 times daily 60 tablet 07/19/2024 07/21/2024 Discontinued 0.3 ml enoxaparin sodium 100 mg/ml prefilled syringe (1 source) Low Molecular Weight Heparin Start: 07-19-2024 inject 30 mg by subcutaneous injection twice daily 30 mg, SubCUTAneous, 2 TIMES DAILY, First dose on 07/19/24 at 0900, Until Discontinued, Indication of Use: Prophylaxis-DVT/PE , Administer by deep subCUTAneous injection with pt lying down. Alternate injection sites on abdominal wall. Do not rub site after injection. Check with provider prior to any invasive procedure. 2 ml fentaNYL 0.05 mg/ml injection (2 sources) Opioid Agonist Start: 07-17-2024 End: 07-18-2024 25 mcg, IntraVENous, EVERY 2 HOURS PRN, 3 doses, Starting on Jocelyn 07/17/24 at 1721, Until 07/18/24 at 1446, Pain Severe (7-10), If oral and IV narcotics ordered, use oral first and only use IV if oral is ineffective or cannot take oral. Do Not give oral and IV within 1 hour of each other unless specifically ordered. Start: 07-17-2024 End: 07-17-2024 take 1 dose by mouth every hour 50 mcg, IntraVENous, ONCE, 1 dose, On Jocelyn 07/17/24 at 1515, If oral and IV narcotics ordered, use oral first and only use IV if oral is ineffective or cannot take oral. Do Not give oral and IV within 1 hour of each other unless specifically ordered. gabapentin 300 mg oral capsule (3 sources) Anti-epileptic Agent Start: 07-17-2024 End: 07-28-2024 take 1 capsule by mouth three times daily gabapentin (NEURONTIN) 300 MG capsule Take 1 capsule by mouth 3 times daily for 7 days. 21 capsule 07/19/2024 07/21/2024 Discontinued ibuprofen 400 mg oral tablet (11 sources) Nonsteroidal Anti-inflammatory Drug Start: 07-17-2024 take 400 mg by mouth three times daily at mealtime 400 mg, Oral, 3 TIMES DAILY WITH MEALS, First dose on Jocelyn 07/17/24 at 1730, Until Discontinued Start: 03-27-2017 ibuprofen (MOT RIN) 800 mg tablet 0 03/27/2017 Active take 1 tablet by maria g th every eight hours ibuprofen 600 MG tablet Take 600 mg by mouth every 8 (eight) hours Active iopamidol (ISOVUE-370) 76 % injection 130 mL (1 source) Start: 07-17-2024 End: 07-17-2024 take 1 dose intravenously once 130 mL, IntraVENous, IMG ONCE PRN, 1 dose, Starting on Jocelyn 07/17/24 at 1321, Until Jocelyn 07/17/24 at 1356, Other methocarbamol 750 mg oral tablet (3 sources) Muscle Relaxant Start: 07-17-2024 End: 07-31-2024 take 1 tablet by mouth four times daily methocarbamol (ROBAXIN) 750 MG tablet Take 1 tablet by mouth 4 times daily for 10 days 40 tablet 07/19/2024 07/21/2024 Discontinued montelukast 10 mg oral tablet (13 sources) Leukotriene Receptor Antagonist Start: 07-19-2024 take 10 mg by mouth once daily 10 mg, Oral, NIGHTLY, First dose on 07/19/24 at 2100, Until Discontinued 1 ml morphine sulfate 4 mg/ml cartridge (1 source) Opioid Agonist Start: 07-17-2024 End: 07-17-2024 take 1 dose by mouth every hour 4 mg, IntraVENous, ONCE, 1 dose, On Jocelyn 07/17/24 at 1245, If oral and IV narcotics ordered, use oral first and only use IV if oral is ineffective or cannot take oral. Do Not give oral and IV within 1 hour of each other unless specifically ordered. Start: 07-17-2024 End: 07-17-2024 take 1 dose by mouth every hour 4 mg, IntraVENous, ONCE, 1 dose, On Jocelyn 07/17/24 at 1245, If oral and IV narcotics ordered, use oral first and only use IV if oral is ineffective or cannot take oral. Do Not give oral and IV within 1 hour of each other unless specifically ordered. 2 ml ondansetron 2 mg/ml injection (5 sources) Serotonin-3 Receptor Antagonist Start: 07-17-2024 End: 09-26-2024 4 mg, IntraVENous, ONCE, 1 dose, On Sun07/17/24 at 1700 Start: 07-17-2024 End: 07-17-2024 4 mg, IntraVENous, ONCE, 1 d ose, On Sun07/17/24 at 1400 Start: 07-17-2024 End: 07-17-2024 4 mg, IntraVENous, EVERY 8 H OURS PRN, Starting on Sun07/18/24 at 1011, Until Discontinued, Nausea, Vomiting Start: 07-17-2024 End: 07-17-2024 4 mg, IntraVENous, ONCE, 1 d ose, On Sun07/17/24 at 1245 oxyCODONE hydrochloride 5 mg oral tablet (1 source) Opioid Agonist Start: 07-17-2024 take 5 mg by mouth every four hours as needed 5 mg, Oral, EVERY 4 HOURS PRN, Starting on Sun07/17/24 at 1650, Until Discontinued, Pain Moderate (4-6) Problems Active Problems Problem Classification Problem Date Documented Da te Episodic/Chronic Acute cerebrovascular disease (6 sources) Hemorrhage into subarachnoid space of neuraxis; Translations: [Nontraumatic subarachnoid hemorrhage, unspecified] Onset: 07-17-2024 07-17-2024 Chronic Cataract (20 sources) Age-related nuclear cataract of left eye; Translations: [Age-related nuclear cataract, left eye] Onset: 02-18-2024 02-18-2024 Chronic Other acquired deformities (2 sources) Spondylolisthesis, lumbar region; Translations: [Spondylolisthesis, lumbar region] Onset: 12-18-2024 Episodic Other and ill-defined cerebrovascular disease (10 sources) Intracranial aneurysm; Translations: [Cerebral aneurysm, nonruptured] Onset: 01-05-2015 02-18-2024 Chronic Other fractures (4 sources) Fracture of sternum; Translations: [Unspecified fracture of sternum, initial encounter for closed fracture] Onset: 07-17-2024 07-17-2024 Episodic Other fractures (1 source) Unspecified fracture of sternum, initial encounter for closed fracture; Translations: [Unspecified fracture of sternum, initial encounter for closed fracture] Onset: 07-17-2024 Episodic Other fractures (2 sources) Wedge compression fracture of unspecified thoracic vertebra, sequela; Translations: [Wedge compression fracture of unspecified thoracic vertebra, sequela] Onset: 01-01-2025 Episodic Retinal detachments; defects; vascular occlusion; and retinopathy (18 sources) Epiretinal membrane; Translations: [Puckering of macula, unspecified eye] Onset: 02-18-2024 02-18-2024 Chronic Spondylosis; intervertebral disc disorders; other back problems (2 sources) Other intervertebral disc degeneration, thoracic region; Translations: [Other intervertebral disc degeneration, thoracic region] Onset: 12-18-2024 Chronic Spondylosis; intervertebral disc disorders; other back problems (8 sources) Sacrococcygeal disorders, not elsewhere classified; Translations: [Pain in thoracic spine] Onset: 07-30-2023 Episodic Superficial injury; contusion (5 sources) Contusion of left elbow, initial encounter; Translations: [Traumatic hematoma] Onset: 07-17-2024 Episodic Unclassified (1 source) DISPOSITION AND FOLLOW-UP Onset: 03-17-2015 10-17-2021 Unclassified (1 source) Drug therapy finding; Translations: [DVT prophylaxis] Onset: 03-17-2015 10-17-2021 Past or Other Problems Problem Classification Problem Date Documented Date Episodic/Chronic E Codes: Fall (1 source) Fall; Translations: [Unspecified fall, initial encounter] 07-17-2024 Episodic Immunizations and screening for infectious disease (1 source) Encounter for screening for other viral diseases; Translations: [Encounter for screening for other viral diseases Z11.59] Onset: 08-10-2021 Resolved: 08-10-2021 Episodic Intracranial injury (1 source) Injury of head; Translations: [Unspecified intracranial injury with loss of consciousness of 30 minutes or less, initial encounter] 07-17-2024 Episodic Other and unspecified benign neoplasm (10 sources) Benign mediastinal teratoma; 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] Onset: 03-30-2015 02-18-2024 Episodic Other and unspecified benign neoplasm (10 sources) Lipoma of thigh; Translations: [Benign lipomatous neoplasm of skin and subcutaneous tissue of right leg] Onset: 07-20-2016 02-18-2024 Episodic Other eye disorders (9 sources) Dermatochalasis of left upper eyelid; Translations: [Dermatochalasis of left upper eyelid] Onset: 02-18-2024 02-18-2024 Episodic Other eye disorders (9 sources) Excess skin of eyelid; Translations: [Blepharochalasis unspecified eye, unspecified eyelid] Onset: 02-18-2024 02-18-2024 Episodic Other fractures (1 source) Closed fracture of sternum; Translations: [Unspecified fracture of sternum, initial encounter for closed fracture] 07-21-2024 Episodic Other lower respiratory disease (10 sources) Hypoxia; Translations: [Hypoxemia] Onset: 03-19-2015 02-18-2024 Episodic Other nervous system disorders (10 sources) Acute postoperative pain; Translations: [Other acute postprocedural pain] Onset: 03-17-2015 02-18-2024 Episodic Other upper respiratory disease (1 source) Mediastinal mass; Translations: [Other diseases of mediastinum, not elsewhere classified] Onset: 03-12-2015 Resolved: 03-30-2015 10-17-2021 Episodic Results Test Name Value Interpretation Reference Range Facility Ambulatory Visit Summaryon 0 02-25-2025 Ambulatory Visit Summary Ambulatory Visit Summary BRISEIDA RUDD :1955 Visit Date:02/25/2025 Ambulatory Visit Instructions Your Diagnosis Positive colorectal cancer screening using Cologuard test Your Care Team Attending Physician - Franko BARBER MD Primary Care Physician - THOMAS MARTIN JR, DO This Is Your Medications List Contact prescribing physician if questions or concerns albuterol (Albuterol (Eqv-ProAir HFA)) albuterol-ipratropium (DuoNeb 2.5 mg-0.5 mg/3 mL Soln-Inh) aspirin (aspirin 81 mg Oral EC Tab) baclofen (baclofen 10 mg Tab) cetirizine (cetirizine 10 mg Tab) duloxetine (Cymbalta 20 mg Cap-DR) famotidine (famotidine 40 mg Tab) montelukast (Singulair 10 mg Tab) omeprazole (omeprazole 40 mg Cap-DR) phentermine (Adipex-P 37.5 mg Tab) rosuvastatin (Crestor 5 mg Tab) Procedures Performed Colonoscopy (11/2021), Lens implantation, JUANA - Total abdominal hysterectomy. Discharge Vitals Heart Rate (Peripheral) 76 Respiratory Rate 16 Blood Pressure 138/92 Height 157.4 cm Height 62 in Weight 66.8 kg Weight 147.269 lb BMI 26.96 Medications What How Much When Instructions Unchanged albuterol (Albuterol (Eqv-ProAir HFA)) 2 Puffs Inhalation 2 times a day Contact prescribing physician if questions or concerns Unchanged albuterol-ipratropium (DuoNeb 2.5 mg-0.5 mg/ 3 mL Soln-Inh) 3 Milliliter Nebulized inhalation (aerosol) 2 times a day Contact prescribing physician if questions or concerns Unchanged aspirin (aspirin 81 mg Oral EC Tab) 1 Tablets By Mouth Every day Contact prescribing physician if questions or concerns Unchanged baclofen (baclofen 10 mg Tab) 1 Tablets By Mouth 3 times a day as needed for Spasm Contact prescribing physician if questions or concerns Unchanged cetirizine (cetirizine 10 mg Tab) 1 Tablets By Mouth Every day Contact prescribing physician if questions or concerns Unchanged duloxetine (Cymbalta 20 mg Cap-DR) 1 Capsules By Mouth Every day Contact prescribing physician if questions or concerns Unchanged famotidine (famotidine 40 mg Tab) 1 Tablets By Mouth Once a day (at bedtime) Contact prescribing physician if questions or concerns Unchanged montelukast (Singulair 10 mg Tab) 1 Tablets By Mouth Every day Contact prescribing physician if questions or concerns Unchanged omeprazole (omeprazole 40 mg Cap-DR) 1 Capsules By Mouth Every day Contact prescribing physician if questions or concerns Unchanged phentermine (Adipex-P 37.5 mg Tab) 1 Tablets By Mouth Every day Contact prescribing physician if questions or concerns Unchanged rosuvastatin (Crestor 5 mg Tab) 1 Tablets By Mouth Every day Contact prescribing physician if questions or concerns Allergies No Known Allergies Problems Ongoing - Any problem that you are currently receiving treatment for. Allergic rhinitis Asthma BMI 26.0-26.9,adult Depression GERD (gastroesophageal reflux disease) History of subarachnoid hemorrhage Hyperlipidemia Intracranial aneurysm Migraines Overweight Positive colorectal cancer screening using Cologuard test Historical - Any problem that you are no longer receiving treatment for. Mediastinal mass Patient Survey You may receive a survey via text or e-mail asking about your office visit. Please share your experience with us by completing your survey. We appreciate your feedback and thank you for choosing us for your care. Normal [facility] Follow-Upon 01-01-2025 Follow-Up [id number] Briseida Rudd 1955 F Date Provider Department Center 01/01/2025 WILL CHAIDEZ [facility] No family history on file Level of Service:00355 [place] OFFICE/OUTPATIENT ESTABLISHED LOW MDM 20 MIN Reason for Visit and Comments: Results [95] - MRI LOWER BACK Normal [facility] Ryan 12-25-2024 CNPN Telephone (NSEN) BRISEIDA RUDD ([id number]) 1955 F Date Time Provider Department 12/25/24 NATI CHILD [facility] During your visit today, we recorded the following information about you: Armand Jacobssica 12/25/2024 10:11 AM Signed Angeles is calling from [facility] regarding MRI Safety information. She agreed to send a fax requesting information to [phone]. I will fax the following report. Allergies As of Date: 12/25/2024 (No Known Allergies) Date Reviewed: 07/18/2017 Reviewed by: Ailyn Vickers (Mary Lou) - Fully Assessed Reason for Visit: Release Of Medical Records [2017] Prescriptions as of 12/25/2024 - aspirin 325 mg tablet Take 325 mg by mouth once daily. - escitalopram oxalate (LEXAPRO) 20 mg tablet - ibuprofen (MOTRIN) 800 mg tablet - HYDROcodone-acetamino phen (NORCO) 5-325 mg per tablet Take 1-2 tablets by mouth every 6 hours as needed. - estradiol (ESTRACE) 1 mg tablet Take 1 mg by mouth once daily. 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 Ruth seen patient in [facility] on 12/18/24 [facility] [phone] Fax Normal [facility] Telephoneon 12-24-2024 Telephone [id number] Briseida Rudd 1955 F [facility] Provider Department Center 12/24/2024 Julee-MONIQUE KENT MP ORTHO [facility] No family history on file Reason for Visit and Comments: imaging order [Other] Normal [facility] Office Visiton 12-18-2024 Follow-up visit [id number] Briseida Rudd 1955 F Date Provider Department Center 12/18/2024 Marcelino-WILL RUTH NWEdwina ORTHO [facility] No family history on file Level of Service:20432 [place] OFFICE/OUTPATIENT [facility] 30 MINUTES Normal [facility] XR CERVICAL SPINE FLEXION AN D EXTENSIONon 08-30-2024 XR CERVICAL SPINE FLEXION AND EXTENSION EXAMINATION: 3 XRAY VIEWS OF THE CERVICAL SPINE 08/27/2024 11:20 am COMPARISON: None. HISTORY: ORDERING SYSTEM PROVIDED HISTORY: Cervical pain TECHNOLOGIST PROVIDED HISTORY: Reason for Exam: neck pain, recent fall, dizziness FINDINGS: Lateral neutral, flexion extension images performed. At neutral there is reversed cervical lordosis. 2 mm retrolisthesis C4 on C5. No abnormal motion with flexion or extension. Moderate degenerative change most significant C4-5 C5-6. Prevertebral soft tissues unremarkable. IMPRESSION: No acute findings. Multilevel degenerative change. Interpreted by: Zeke Ambrocio DO Signed by: Zeke Ambrocio DO 08/30/24 Final result Normal [facility] Troponinon 07-20-2024 Troponin I.cardiac High sensitivity method [Mass/Vol] ng/L 0 - 14 ng/L [facility] Comment on above: High Sensitivity Tro ponin values cannot be compared with other Troponin methodologies. [facility] Troponin, High Sens <6 Normal 0-14 [facility] Comment on above: Result Comment: High Sensitivity Troponin values cannot be compared with other Troponin methodologies. Performed By: #### T ROPI ####[facility] [id number] [place] [address] Lab Director: Simón Savage MD CT HEAD WO CONTRASTon 2023 CT HEAD WO CONTRAST EXAMINATION: CT OF THE HEAD WITHOUT CONTRAST 07/19/2024 12:17 pm TECHNIQUE: CT of the head was performed without the administration of intravenous contrast. Automated exposure control, iterative reconstruction, and/or weight based adjustment of the mA/kV was utilized to reduce the radiation dose to as low as reasonably achievable. COMPARISON: 07/17/2024. HISTORY: ORDERING SYSTEM PROVIDED HISTORY: New headache and photophobia, bilateral SDH TECHNOLOGIST PROVIDED HISTORY: New headache and photophobia, bilateral SDH Reason for Exam: headache FINDINGS: BRAIN/VENTRICLES: There is stable subarachnoid hemorrhage in right frontal lobe. No new areas of intracranial hemorrhage. No significant mass effect. No abnormal extra-axial fluid collection. The eisenberg-white differentiation is maintained without evidence of an acute infarct. There is no evidence of hydrocephalus. ORBITS: The visualized portion of the orbits demonstrate no acute abnormality. SINUSES: Partial opacification of the left mastoid air cells. The visualized paranasal sinuses are clear. SOFT TISSUES/SKULL: Extensive right-sided scalp hematoma, grossly stable. No acute calvarial abnormality. IMPRESSION: Stable noncontrast head CT. Small quantity of subarachnoid hemorrhage in the right frontal lobe. No mass effect, extra-axial hematoma or new intracranial hemorrhage identified. Interpreted by: Rah Alejandra MD Signed by: Rah Alejandra MD 07/19/24 Final result Normal [facility] CT Head WO contraston [address] Small quantity of subarachnoid hemorrhage in the right frontal lobe. No mass effect, extra-axial hematoma or new intracranial hemorrhage identified. [facility] EXAMINATION: CT OF THE HEAD WITHOUT CONTRAST 07/19/2024 12:17 pm TECHNIQUE: CT of the head was performed without the administration of intravenous contrast. Automated exposure control, iterative reconstruction, and/or weight based adjustment of the mA/kV was utilized to reduce the radiation dose to as low as reasonably achievable. COMPARISON: 07/17/2024. HISTORY: ORDERING SYSTEM PROVIDED HISTORY: New headache and photophobia, bilateral [facility] TECHNOLOGIST PROVIDED HISTORY: New headache and photophobia, bilateral SDH Reason for Exam: headache FINDINGS: BRAIN/VENTRICLES: There is stable subarachnoid hemorrhage in right frontal lobe. No new areas of intracranial hemorrhage. No significant mass effect. No abnormal extra-axial fluid collection. The eisenberg-white differentiation is maintained without evidence of an acute infarct. There is no evidence of hydrocephalus. ORBITS: The visualized portion of the orbits demonstrate no acute abnormality. SINUSES: Partial opacification of the left mastoid air cells. The visualized paranasal sinuses are clear. SOFT TISSUES/SKULL: Extensive right-sided scalp hematoma, grossly stable. No acute calvarial abnormality. [facility] Rah Danielle MD - 07/19/2024 EXAMINATION: CT OF THE HEAD WITHOUT CONTRAST 07/19/2024 12:17 pm TECHNIQUE: CT of the head was performed without the administration of intravenous contrast. Automated exposure control, iterative reconstruction, and/or weight based adjustment of the mA/kV was utilized to reduce the radiation dose to as low as reasonably achievable. COMPARISON: 07/17/2024. HISTORY: ORDERING SYSTEM PROVIDED HISTORY: New headache and photophobia, bilateral SD[facility] TECHNOLOGIST PROVIDED HISTORY: New headache and photophobia, bilateral SDH Reason for Exam: headache FINDINGS: BRAIN/VENTRICLES: There is stable subarachnoid hemorrhage in right frontal lobe. No new areas of intracranial hemorrhage. No significant mass effect. No abnormal extra-axial fluid collection. The eisenberg-white differentiation is maintained without evidence of an acute infarct. There is no evidence of hydrocephalus. ORBITS: The visualized portion of the orbits demonstrate no acute abnormality. SINUSES: Partial opacification of the left mastoid air cells. The visualized paranasal sinuses are clear. SOFT TISSUES/SKULL: Extensive right-sided scalp hematoma, grossly stable. No acute calvarial abnormality. IMPRESSION: Stable noncontrast head CT. Small quantity of subarachnoid hemorrhage in the right frontal lobe. No mass effect, extra-axial hematoma or new intracranial hemorrhage identified. [facility] Radiology Study observation (narrative) [facility] CT Head WO contrastOrdered B y: Rah Alejandra on 07-19-2024 [facility] Work Phone: Urinalysis w/ Microon 2023 Bacteria MANY Abnormal NONE [facility] Comment on above: Performed By: #### U AMIC #### [address] [id number] Patent Searcher: Simón Savage MD Bilirubin, SemiQt,Ur Negative Normal NEG [facility] Comment on above: Performed By: #### U AMIC #### [address] [id number] Patent Searcher: Simón Savage MD Blood, Urine Negative Normal NEG [facility] Comment on above: Performed By: #### U AMIC #### [address] [id number] Patent Searcher: Simón Savage MD Casts 20 TO 50 Normal 0-8 [facility] Comment on above: Result Comment: Refe rence range defined for non-centrifuged specimen. Performed By: #### U AMIC #### [address] [id number] Patent Searcher: Simón Savage MD Clarity (U) Cloudy Abnormal CLEAR [facility] Comment on above: Performed By: #### U AMIC #### [address] [id number] Patent Searcher: Simón Savage MD Color (U) Yellow Normal YEL [facility] Comment on above: Performed By: #### U AMIC #### [address] [id number] Patent Searcher: Simón Savage MD Epithelial cells LM Ql (Urine sed) 0 TO 2 Normal 0-5 [facility] Comment on above: Performed By: #### U AMIC #### [address] [id number] Patent Searcher: Simón Savage MD Glucose Ql (U) Negative Normal NEG [facility] Comment on above: Performed By: #### U AMIC #### [address] [id number] Patent Searcher: Simón Savage MD Ketones Ql (U) Negative Normal NEG [facility] Comment on above: Performed By: #### U AMIC #### [address] [address] Patent Searcher: Simón Savage MD Leukocyte esterase Test strip Ql (U) MODERATE Abnormal NEG [facility] Comment on above: Performed By: #### U AMIC #### [address] [id number] Patent Searcher: Simón Savage MD Nitrite,Ur Negative Normal NEG [facility] Comment on above: Performed By: #### U AMIC #### [address] [id number] Patent Searcher: Simón Savage MD PH,Ur 6.0 Normal 5.0-8.0 [facility] Comment on above: Performed By: #### U AMIC #### [address] [id number] Patent Searcher: Simón Savage MD Protein Ql (U) TRACE Abnormal NEG [facility] Comment on above: Performed By: #### U AMIC #### [address] [id number] Patent Searcher: Simón Savage MD Spec. [place],Ur 1.038 High 1.005-1.030 [facility] Comment on above: Performed By: #### U AMIC #### [address] [id number] Patent Searcher: Simón Savage MD Urine RBC's 0 TO 2 Normal 0-4 [facility] Comment on above: Result Comment: Refe rence range defined for non-centrifuged specimen. Performed By: #### U AMIC #### [facility] [address] [place] [address] Patent Searcher: Simón Savage MD Urine WBC's 50 TO 100 Normal 0-5 [facility] Comment on above: Performed By: #### U AMIC #### [facility] [address] [place], [place] [id number] Patent Searcher: Simón Savage MD Urobilinogen,Ur Normal Normal 0.0-1.0 [facility] Comment on above: Performed By: #### U AMIC #### [facility] [place], [place] [address] Patent Searcher: Simón Savage MD Urinalysis with Microscopico n 07-19-2024 Bacteria LM Ql (Urine sed) MANY Abnormal None [facility] Bilirubin Ql (U) Negative NEGATIVE [facility] Casts LM.LPF (Urine sed) [#/Area] 20 TO 50 Reference range defined for non-centrifuged specimen. [facility] Clarity (U) Cloudy Abnormal Clear [facility] Color (U) Yellow Yellow [facility] Epithelial cells LM.HPF (Urine sed) [#/Area] 0 TO 2 [facility] Glucose Test strip (U) [Mass/Vol] Negative NEGATIVE mg/dL [facility] Hemoglobin Auto test strip Ql (U) Negative NEGATIVE [facility] Interpretation and review of laboratory results Abnormal [facility] Ketones (U) [Mass/Vol] Negative NEGAT NOEMY mg/dL [facility] Leukocyte esterase Test strip Ql (U) MODERATE Abnormal NEGATIVE [facility] Nitrite Ql (U) Negative NEGATIVE [facility] pH (U) 6.0 [pH] 5.0 - 8.0 [facility] Protein (U) [Mass/Vol] TRACE Abnormal NEGAT NOEMY mg/dL [facility] RBC LM.HPF (Urine sed) [#/Area] 0 TO 2 [facility] Comment on above: Reference range defi pearl for non-centrifuged specimen. Specific gravity (U) [Rel density] 1.038 High 1.005 - 1.030 [facility] Urobilinogen Qn (U) Normal 0.0 - 1. 0 EU/dL [facility] WBC LM.HPF (Urine sed) [#/Area] 50 TO 100 [facility] CBC with Auto Differentialon 07-18-2024 Basophils (Bld) [#/Vol] 0.00 10*3/uL [facility] Basophils/100 WBC (Bld) 0 % 0 - 2 % [facility] Eosinophils (Bld) [#/Vol] 0.00 10*3/uL [facility] Eosinophils/100 WBC (Bld) 0 % Low 1 - 4 % [facility] Erythrocyte distribution width (RBC) [Ratio] 14.2 % 11.8 - 14.4 % [facility] Hematocrit (Bld) [Volume fraction] 37.6 % 36.3 - 47.1 % [facility] Hemoglobin (Bld) [Mass/Vol] 11.6 g/dL Low 11.9 - 15.1 g/dL [facility] Immature granulocytes (Bld) [#/Vol] 0.11 10*3/uL [facility] Immature granulocytes/100 WBC (Bld) 1 % High 0 [facility] Interpretation and review of laboratory results Abnormal [facility] Lymphocytes/100 WBC (Bld) 7 % Low 24 - 43 % [facility] Lymphocytes/100 WBC (Bld) 0.75 % Low [facility] MCH (RBC) [Entitic mass] 27.6 pg 25.2 - 33.5 pg [facility] MCHC (RBC) [Mass/Vol] 30.9 g/dL 28.4 - 34.8 g/dL [facility] MCV (RBC) [Entitic vol] 89.5 fL 82.6 - 102.9 fL [facility] Monocytes/100 WBC (Bld) 9 % 3 - 12 % [facility] Monocytes/100 WBC (Bld) 0.96 % [facility] Morphology Stephane (Bld) [Interp] Normal [facility] Neutrophils/100 WBC (Bld) 83 % High 36 - 65 % [facility] Nucleated RBC/100 WBC (Bld) [Ratio] 0.0 % 0.0 per 100 WBC [facility] Platelet mean volume (Bld) [Entitic vol] 9.8 fL 8.1 - 13.5 fL [facility] Platelets (Bld) [#/Vol] 231 10*3/uL [facility] RBC (Bld) [#/Vol] 4.20 10*6/uL 3.95 - 5.1 1 m/uL [facility] Segmented neutrophils/100 WBC (Bld) 8.88 % High [facility] WBC other (Bld) [#/Vol] 10.7 [facility] CBC with Diffon 07-18-2024 Abs. Basophil 0.00 k/uL Normal 0.00-0.20 [facility] Comment on above: Performed By: #### C DP ####[place] [address] Lab Director: Simón Savage MD Abs.Imm.Granulocyte 0.11 k/uL Normal 0.00-0.30 [facility] Comment on above: Performed By: #### C DP ####[place] [address] Lab Director: Simón Savage MD Abs.Neutrophil (Seg) 8.88 k/uL High 1.50-8.10 [facility] Comment on above: Performed By: #### C DP ####[facility] [address] [place] [address] Lab Director: Simón Savage MD Basophils/100 WBC (Bld) 0 % Normal 0-2 [facility] Comment on above: Performed By: #### C DP ####[address] [address])[phone] Director: Simón Savage MD Eosinophils (Bld) [#/Vol] 0.00 10*3/uL Normal 0.00-0.44 [facility] Comment on above: Performed By: #### C DP ####[address] [address])[phone] Director: Simón Savage MD Eosinophils/100 WBC (Bld) 0 % Low 1-4 [facility] Comment on above: Performed By: #### C DP ####[place], [place] [address])[phone] Director: Simón Savage MD Immature granulocytes/100 WBC (Bld) 1 % High 0 [facility] Comment on above: Performed By: #### C DP ####[place], [place] [address])[phone] Director: Simón Savage MD Lymphocytes (Bld) [#/Vol] 0.75 10*3/uL Low 1.10-3.70 [facility] Comment on above: Performed By: #### C DP ####[address] [address])[phone] Director: Simón Savgae MD Lymphocytes/100 WBC (Bld) 7 % Low 24-43 [facility] Comment on above: Performed By: #### C DP ####[address] [address])[phone] Director: Simón Savage MD Monocytes (Bld) [#/Vol] 0.96 10*3/uL Normal 0.10-1.20 [facility] Comment on above: Performed By: #### C DP ####[address] [address])[phone] Director: Simón Savage MD Monocytes/100 WBC (Bld) 9 % Normal 3-12 [facility] Comment on above: Performed By: #### C DP ####[address] [phone] Director: Simón Savage MD Morphology Stephane (Bld) [Interp] Normal Normal [facility] Comment on above: Performed By: #### C DP ####[address] [phone] Director: Simón Savage MD Neutrophil (Seg) 83 % High 36-65 [facility] Comment on above: Performed By: #### C DP ####[address] [phone] Director: Simón Savage MD Erythrocyte distribution width (RBC) [Ratio] 14.2 % Normal 11.8-14.4 [facility] Comment on above: Performed By: #### C DP ####[address] [phone] Director: Simón Savage MD Hematocrit (Bld) [Volume fraction] 37.6 % Normal 36.3-47.1 [facility] Comment on above: Performed By: #### C DP ####[address] [phone] Director: Simón Savage MD Hemoglobin (Bld) [Mass/Vol] 11.6 g/dL Low 11.9-15.1 [facility] Comment on above: Performed By: #### C DP ####[address] [phone] Director: Simón Savage MD MCH (RBC) [Entitic mass] 27.6 pg Normal 25.2-33.5 [facility] Comment on above: Performed By: #### C DP ####[address] [address] Lab Director: Simón Savage MD MCHC (RBC) [Mass/Vol] 30.9 g/dL Normal 28.4-34.8 [facility] Comment on above: Performed By: #### C DP ####[address] [phone] Director: Simón Savage MD MCV (RBC) [Entitic vol] 89.5 fL Normal 82.6-102.9 [facility] Comment on above: Performed By: #### C DP ####[address] [phone] Director: Simón Savage MD NRBC Automated 0.0 per 100 WBC Normal 0.0 [facility] Comment on above: Performed By: #### C DP ####[address] [phone] Director: Simón Savage MD Platelet mean volume (Bld) [Entitic vol] 9.8 fL Normal 8.1-13.5 [facility] Comment on above: Performed By: #### C DP ####[address] [phone] Director: Simón Savage MD Platelets (Bld) [#/Vol] 231 10*3/uL Normal 138-453 [facility] Comment on above: Performed By: #### C DP ####[address] [phone])[phone] Director: Simón Savage MD RBC (Bld) [#/Vol] 4.20 10*6/uL Normal 3.95-5.11 [facility] Comment on above: Performed By: #### C DP ####[address] [phone] Director: Simón Savage MD WBC (Bld) [#/Vol] 10.7 10*3/uL Normal 3.5-11.3 [facility] Comment on above: Performed By: #### C DP ####[facility] [address] [place] [address] Lab Director: Simón Savage MD No Panel Informationon 07-18 No acute osseous abnormality involving the knee, tibia or fibula. [facility] EXAM[facility]ATION: THREE XRAY VIEWS OF THE LEFT KNEE; 2 XRAY VIEWS OF THE LEFT TIBIA AND FIBULA 07/18/2024 12:22 am COMPARISON: None. HISTORY: ORDERING SYSTEM PROVIDED HISTORY: Fall, diffuse LUE and LLE pain TECHNOLOGIST PROVIDED HISTORY: Fall, diffuse LUE and LLE pain FINDINGS: Tib-fib: No tibial or fibular fracture is seen. No radiopaque foreign body is identified. No soft tissue gas is identified. Knee: No fracture or dislocation is identified. No joint effusion. No bone erosions. No foreign body. [facility] Rah Adams MD - 07/18/2024 EXAMINATION: THREE XRAY VIEWS OF THE LEFT KNEE; 2 XRAY VIEWS OF THE LEFT TIBIA AND FIBULA 07/18/2024 12:22 am COMPARISON: None. HISTORY: ORDERING SYSTEM PROVIDED HISTORY: Fall, diffuse LUE and LLE pain TECHNOLOGIST PROVIDED HISTORY: Fall, diffuse LUE and LLE pain FINDINGS: Tib-fib: No tibial or fibular fracture is seen. No radiopaque foreign body is identified. No soft tissue gas is identified. Knee: No fracture or dislocation is identified. No joint effusion. No bone erosions. No foreign body. IMPRESSION: No acute osseous abnormality involving the knee, tibia or fibula. [facility] 1. No acute osseous abnormality of the left elbow, forearm, wrist, or hand. 2. Remote ulnar styloid process tip fracture versus unfused apophysis. 3. Mild degenerative change at the radiocarpal joint. [facility] EXAMINATION: THREE XRAY VIEWS OF THE LEFT ELBOW; THREE XRAY VIEWS OF THE LEFT HAND; TWO XRAY VIEWS OF THE LEFT FOREARM; 3 XRAY VIEWS OF THE LEFT WRIST 07/18/2024 12:22 am COMPARISON: None. HISTORY: ORDERING SYSTEM PROVIDED HISTORY: Fall, diffuse LUE and LLE pain TECHNOLOGIST PROVIDED HISTORY: Fall, diffuse LUE and LLE pain FINDINGS: Elbow: The distal humerus appears intact. The proximal radius and ulna appear intact. No fracture or dislocation. No joint effusion. Intravenous catheter noted. Forearm: Intact radius and ulna. No acute fracture or dislocation. No focal radiopaque foreign body. Known IV catheter. Left wrist: The distal radius and ulna appear intact. Remote ulnar styloid process tip fracture versus unfused apophysis. Degenerative change seen at the radiocarpal joint. No acute carpal bone fracture is identified. Visualized metacarpals and phalanges appear intact. No radiopaque foreign body is identified. Hand: Mild degenerative change seen, with no fracture or dislocation. No radiopaque foreign body. No bone erosions are seen. The metacarpals and phalanges appear intact. [facility] Rah Rodriguez MD - 07/18/2024 EXAMINATION: THREE XRAY VIEWS OF THE LEFT ELBOW; THREE XRAY VIEWS OF THE LEFT HAND; TWO XRAY VIEWS OF THE LEFT FOREARM; 3 XRAY VIEWS OF THE LEFT WRIST 07/18/2024 12:22 am COMPARISON: None. HISTORY: ORDERING SYSTEM PROVIDED HISTORY: Fall, diffuse LUE and LLE pain TECHNOLOGIST PROVIDED HISTORY: Fall, diffuse LUE and LLE pain FINDINGS: Elbow: The distal humerus appears intact. The proximal radius and ulna appear intact. No fracture or dislocation. No joint effusion. Intravenous catheter noted. Forearm: Intact radius and ulna. No acute fracture or dislocation. No focal radiopaque foreign body. Known IV catheter. Left wrist: The distal radius and ulna appear intact. Remote ulnar styloid process tip fracture versus unfused apophysis. Degenerative change seen at the radiocarpal joint. No acute carpal bone fracture is identified. Visualized metacarpals and phalanges appear intact. No radiopaque foreign body is identified. Hand: Mild degenerative change seen, with no fracture or dislocation. No radiopaque foreign body. No bone erosions are seen. The metacarpals and phalanges appear intact. IMPRESSION: 1. No acute osseous abnormality of the left elbow, forearm, wrist, or hand. 2. Remote ulnar styloid process tip fracture versus unfused apophysis. 3. Mild degenerative change at the radiocarpal joint. [facility] Radiology Study observation (narrative) [facility] Troponinon 07-18-2024 Troponin I.cardiac High sensitivity method [Mass/Vol] ng/L 0 - 14 ng/L [facility] Comment on above: High Sensitivity Tro ponin values cannot be compared with other Troponin methodologies. [facility] Troponin, High Sens <6 Normal 0-14 [facility] Comment on above: Result Comment: High Sensitivity Troponin values cannot be compared with other Troponin methodologies. Performed By: #### T ROPI ####[facility] [address] [place] [address] lab Director: Simón Savage MD XR ELBOW LEFT (MIN 3 VIEWS)o n 07-18-2024 XR ELBOW LEFT (MIN 3 VIEWS) EXAMINATION: THREE XRAY VIEWS OF THE LEFT ELBOW; THREE XRAY VIEWS OF THE LEFT HAND; TWO XRAY VIEWS OF THE LEFT FOREARM; 3 XRAY VIEWS OF THE LEFT WRIST 07/18/2024 12:22 am COMPARISON: None. HISTORY: ORDERING SYSTEM PROVIDED HISTORY: Fall, diffuse LUE and LLE pain TECHNOLOGIST PROVIDED HISTORY: Fall, diffuse LUE and LLE pain FINDINGS: Elbow: The distal humerus appears intact. The proximal radius and ulna appear intact. No fracture or dislocation. No joint effusion. Intravenous catheter noted. Forearm: Intact radius and ulna. No acute fracture or dislocation. No focal radiopaque foreign body. Known IV catheter. Left wrist: The distal radius and ulna appear intact. Remote ulnar styloid process tip fracture versus unfused apophysis. Degenerative change seen at the radiocarpal joint. No acute carpal bone fracture is identified. Visualized metacarpals and phalanges appear intact. No radiopaque foreign body is identified. Hand: Mild degenerative change seen, with no fracture or dislocation. No radiopaque foreign body. No bone erosions are seen. The metacarpals and phalanges appear intact. IMPRESSION: 1. No acute osseous abnormality of the left elbow, forearm, wrist, or hand. 2. Remote ulnar styloid process tip fracture versus unfused apophysis. 3. Mild degenerative change at the radiocarpal joint. Interpreted by: Rah Adams MD Signed by: Rah Adams MD 07/18/24 Final result Normal [facility] XR HAND LEFT (MIN 3 VIEWS)on 07-18-2024 XR HAND LEFT (MIN 3 VIEWS) EXAMINATION: THREE XRAY VIEWS OF THE LEFT ELBOW; THREE XRAY VIEWS OF THE LEFT HAND; TWO XRAY VIEWS OF THE LEFT FOREARM; 3 XRAY VIEWS OF THE LEFT WRIST 07/18/2024 12:22 am COMPARISON: None. HISTORY: ORDERING SYSTEM PROVIDED HISTORY: Fall, diffuse LUE and LLE pain TECHNOLOGIST PROVIDED HISTORY: Fall, diffuse LUE and LLE pain FINDINGS: Elbow: The distal humerus appears intact. The proximal radius and ulna appear intact. No fracture or dislocation. No joint effusion. Intravenous catheter noted. Forearm: Intact radius and ulna. No acute fracture or dislocation. No focal radiopaque foreign body. Known IV catheter. Left wrist: The distal radius and ulna appear intact. Remote ulnar styloid process tip fracture versus unfused apophysis. Degenerative change seen at the radiocarpal joint. No acute carpal bone fracture is identified. Visualized metacarpals and phalanges appear intact. No radiopaque foreign body is identified. Hand: Mild degenerative change seen, with no fracture or dislocation. No radiopaque foreign body. No bone erosions are seen. The metacarpals and phalanges appear intact. IMPRESSION: 1. No acute osseous abnormality of the left elbow, forearm, wrist, or hand. 2. Remote ulnar styloid process tip fracture versus unfused apophysis. 3. Mild degenerative change at the radiocarpal joint. Interpreted by: Rah Adams MD Signed by: Rah Adams MD 07/18/24 Final result Normal [facility] XR KNEE LEFT (3 VIEWS)on XR KNEE LEFT (3 VIEWS) EXAMINATION: THREE XRAY VIEWS OF THE LEFT KNEE; 2 XRAY VIEWS OF THE LEFT TIBIA AND FIBULA 07/18/2024 12:22 am COMPARISON: None. HISTORY: ORDERING SYSTEM PROVIDED HISTORY: Fall, diffuse LUE and LLE pain TECHNOLOGIST PROVIDED HISTORY: Fall, diffuse LUE and LLE pain FINDINGS: Tib-fib: No tibial or fibular fracture is seen. No radiopaque foreign body is identified. No soft tissue gas is identified. Knee: No fracture or dislocation is identified. No joint effusion. No bone erosions. No foreign body. IMPRESSION: No acute osseous abnormality involving the knee, tibia or fibula. Interpreted by: Rah Adams MD Signed by: Rah Adams MD 07/18/24 Final result Normal [facility] XR RADIUS ULNA LEFT (2 VIEWS )on 07-18-2024 XR RADIUS ULNA LEFT (2 VIEWS) EXAMINATION: THREE XRAY VIEWS OF THE LEFT ELBOW; THREE XRAY VIEWS OF THE LEFT HAND; TWO XRAY VIEWS OF THE LEFT FOREARM; 3 XRAY VIEWS OF THE LEFT WRIST 07/18/2024 12:22 am COMPARISON: None. HISTORY: ORDERING SYSTEM PROVIDED HISTORY: Fall, diffuse LUE and LLE pain TECHNOLOGIST PROVIDED HISTORY: Fall, diffuse LUE and LLE pain FINDINGS: Elbow: The distal humerus appears intact. The proximal radius and ulna appear intact. No fracture or dislocation. No joint effusion. Intravenous catheter noted. Forearm: Intact radius and ulna. No acute fracture or dislocation. No focal radiopaque foreign body. Known IV catheter. Left wrist: The distal radius and ulna appear intact. Remote ulnar styloid process tip fracture versus unfused apophysis. Degenerative change seen at the radiocarpal joint. No acute carpal bone fracture is identified. Visualized metacarpals and phalanges appear intact. No radiopaque foreign body is identified. Hand: Mild degenerative change seen, with no fracture or dislocation. No radiopaque foreign body. No bone erosions are seen. The metacarpals and phalanges appear intact. IMPRESSION: 1. No acute osseous abnormality of the left elbow, forearm, wrist, or hand. 2. Remote ulnar styloid process tip fracture versus unfused apophysis. 3. Mild degenerative change at the radiocarpal joint. Interpreted by: Rah Adams MD Signed by: Rah Adams MD 07/18/24 Final result Normal [facility] XR TIBIA FIBULA LEFT (2 VIEW S)on 07-18-2024 XR TIBIA FIBULA LEFT (2 VIEWS) EXAMINATION: THREE XRAY VIEWS OF THE LEFT KNEE; 2 XRAY VIEWS OF THE LEFT TIBIA AND FIBULA 07/18/2024 12:22 am COMPARISON: None. HISTORY: ORDERING SYSTEM PROVIDED HISTORY: Fall, diffuse LUE and LLE pain TECHNOLOGIST PROVIDED HISTORY: Fall, diffuse LUE and LLE pain FINDINGS: Tib-fib: No tibial or fibular fracture is seen. No radiopaque foreign body is identified. No soft tissue gas is identified. Knee: No fracture or dislocation is identified. No joint effusion. No bone erosions. No foreign body. IMPRESSION: No acute osseous abnormality involving the knee, tibia or fibula. Interpreted by: Rah Adams MD Signed by: Rah Adams MD 07/18/24 Final result Normal [facility] XR WRIST LEFT (MIN 3 VIEWS)o n 07-18-2024 XR WRIST LEFT (MIN 3 VIEWS) EXAMINATION: THREE XRAY VIEWS OF THE LEFT ELBOW; THREE XRAY VIEWS OF THE LEFT HAND; TWO XRAY VIEWS OF THE LEFT FOREARM; 3 XRAY VIEWS OF THE LEFT WRIST 07/18/2024 12:22 am COMPARISON: None. HISTORY: ORDERING SYSTEM PROVIDED HISTORY: Fall, diffuse LUE and LLE pain TECHNOLOGIST PROVIDED HISTORY: Fall, diffuse LUE and LLE pain FINDINGS: Elbow: The distal humerus appears intact. The proximal radius and ulna appear intact. No fracture or dislocation. No joint effusion. Intravenous catheter noted. Forearm: Intact radius and ulna. No acute fracture or dislocation. No focal radiopaque foreign body. Known IV catheter. Left wrist: The distal radius and ulna appear intact. Remote ulnar styloid process tip fracture versus unfused apophysis. Degenerative change seen at the radiocarpal joint. No acute carpal bone fracture is identified. Visualized metacarpals and phalanges appear intact. No radiopaque foreign body is identified. Hand: Mild degenerative change seen, with no fracture or dislocation. No radiopaque foreign body. No bone erosions are seen. The metacarpals and phalanges appear intact. IMPRESSION: 1. No acute osseous abnormality of the left elbow, forearm, wrist, or hand. 2. Remote ulnar styloid process tip fracture versus unfused apophysis. 3. Mild degenerative change at the radiocarpal joint. Interpreted by: Rah Adams MD Signed by: Rah Adams MD 07/18/24 Final result Normal [facility] CKon 07-17-2024 CK [Catalytic activity/Vol] 332 U/L High 26 - 192 U/L [facility] CT CERVICAL SPINE WO CONTRAS Ton 07-17-2024 CT CERVICAL SPINE WO CONTRAST EXAMINATION: CT OF THE HEAD WITHOUT CONTRAST; CT OF THE CERVICAL SPINE WITHOUT CONTRAST 07/17/2024 10:22 am TECHNIQUE: CT of the head was performed without the administration of intravenous contrast. Automated exposure control, iterative reconstruction, and/or weight based adjustment of the mA/kV was utilized to reduce the radiation dose to as low as reasonably achievable.; CT of the cervical spine was performed without the administration of intravenous contrast. Multiplanar reformatted images are provided for review. Automated exposure control, iterative reconstruction, and/or weight based adjustment of the mA/kV was utilized to reduce the radiation dose to as low as reasonably achievable. COMPARISON: None. HISTORY: ORDERING SYSTEM PROVIDED HISTORY: trauma TECHNOLOGIST PROVIDED HISTORY: trauma Reason for Exam: trauma fall; ORDERING SYSTEM PROVIDED HISTORY: trauma TECHNOLOGIST PROVIDED HISTORY: trauma Reason for Exam: trauma fall CT BRAIN FINDINGS: BRAIN/VENTRICLES: Mild subarachnoid hemorrhage in the right parietal region. The brainstem, and cerebellum have a normal appearance . The falx is midline. The ventricles and peripheral sulci are normal. There is no sign of a space occupying lesion, infarction Orbits: Portion of the orbits demonstrate no acute abnormality. SINUSES: . The imaged portions of the paranasal sinuses are clear. The mastoids and the middle ear chambers are clear. SOFT TISSUES/SKULL: No acute abnormality of the visualized skull. Significant right frontal and biparietal soft tissue swelling. CT CERVICAL SPINE FINDINGS: The cervical spine demonstrates decreased mineralization with normal cervical lordosis. There is no evidence of fracture or subluxation. There is loss of disc height with eburnation of the vertebral endplates at the C4-5, C5-6, C6-7 levels. There are anterior and posterior marginal osteophytes at multiple levels. The central canal is grossly patent.. The pedicles and posterior elements are intact. The prevertebral and paravertebral soft tissues are unremarkable. The atlanto-dens interval and dens are intact. The visualized lung apices are clear. Vascular calcifications are seen compatible with atherosclerotic disease. IMPRESSION: 1. Mild subarachnoid hemorrhage in the right parietal region. Follow-up exam recommended. 2. Significant right frontal and biparietal soft tissue swelling. 3. No acute bony abnormalities are noted in the cervical spine. 4. Multilevel cervical spondylosis and degenerative disc disease. Critical results were called by Dr. Cole Garcia MD to Tika Gee NP on 07/17/2024 at 2:15. RECOMMENDATIONS: Further evaluation of the cervical spine should be obtained with MR imaging if clinically indicated. Interpreted by: Cole Garcia MD Signed by: Cole Garcia MD 07/17/24 Final result Normal [facility] CT CHEST ABDOMEN PELVIS W CO NTRASTon 07-17-2024 CT CHEST ABDOMEN PELVIS W CONTRAST EXAMINATION: CT OF THE CHEST, ABDOMEN, AND PELVIS WITH CONTRAST 07/17/2024 10:22 am TECHNIQUE: CT of the chest, abdomen and pelvis was performed with the administration of intravenous contrast. Multiplanar reformatted images are provided for review. Automated exposure control, iterative reconstruction, and/or weight based adjustment of the mA/kV was utilized to reduce the radiation dose to as low as reasonably achievable. COMPARISON: None HISTORY: ORDERING SYSTEM PROVIDED HISTORY: trauma TECHNOLOGIST PROVIDED HISTORY: trauma Reason for Exam: trauma fall FINDINGS: Chest: Pulmonary arteries: Central pulmonary arteries appear within normal limits. Main pulmonary artery is of normal caliber.. Mediastinum: No suspicious lymphadenopathy. Lungs/pleura:. There is mild bibasilar atelectasis/fibrosis. No pulmonary masses are noted. No pleural effusions are identified. No pneumothorax. Cardiomediastinal Structures: Coronary arterial calcifications are seen. Intimal calcifications associated with the thoracic aorta. Cardiac chambers are normal Soft Tissues/Bones: There are hypertrophic degenerative changes in the thoracic spine. Fracture of the upper sternum. FINDINGS:. Organs: Liver is normal in size with decreased density. No focal masses identified. No evidence of intrahepatic ductal dilatation. Spleen is normal size. The gallbladder contains a few stones. Both adrenal glands are normal. Pancreas is normal in appearance. The kidneys are normal in size and attenuation without evidence of hydronephrosis or renal calculi. GI/Bowel: The visualized bowel and mesentery show no mass lesions. Pelvis: No intrapelvic mass is identified. Bladder and rectum are intact. Peritoneum/Retroperit oneum: No free fluid. No lymphadenopathy. No evidence of pneumoperitoneum. Bones/Soft Tissues: Small fat containing umbilical hernia. Grade 1 spondylolisthesis of L4 on L5.. No acute bony abnormalities. IMPRESSION: 1. No acute intrathoracic, intra-abdominal or intrapelvic abnormalities. 2. Hepatic steatosis. 3. Cholelithiasis. 4. Fracture of the upper sternum Interpreted by: Cole Garcia MD Signed by: Cole Garcia MD 07/17/24 Final result Normal [facility] CT Chest and Abdomen and Pel vis W contrast Karley 07-17-2024 1. No acute intrathoracic, intra-abdominal or intrapelvic abnormalities. 2. Hepatic steatosis. 3. Cholelithiasis. 4. Fracture of the upper sternum [facility] RIS CONSOLIDATED EXAMINATION: CT OF THE CHEST, ABDOMEN, AND PELVIS WITH CONTRAST 07/17/2024 10:22 am TECHNIQUE: CT of the chest, abdomen and pelvis was performed with the administration of intravenous contrast. Multiplanar reformatted images are provided for review. Automated exposure control, iterative reconstruction, and/or weight based adjustment of the mA/kV was utilized to reduce the radiation dose to as low as reasonably achievable. COMPARISON: None HISTORY: ORDERING SYSTEM PROVIDED HISTORY: trauma TECHNOLOGIST PROVIDED HISTORY: trauma Reason for Exam: trauma fall FINDINGS: Chest: Pulmonary arteries: Central pulmonary arteries appear within normal limits. Main pulmonary artery is of normal caliber.. Mediastinum: No suspicious lymphadenopathy. Lungs/pleura:. There is mild bibasilar atelectasis/fibrosis. No pulmonary masses are noted. No pleural effusions are identified. No pneumothorax. Cardiomediastinal Structures: Coronary arterial calcifications are seen. Intimal calcifications associated with the thoracic aorta. Cardiac chambers are normal Soft Tissues/Bones: There are hypertrophic degenerative changes in the thoracic spine. Fracture of the upper sternum. FINDINGS:. Organs: Liver is normal in size with decreased density. No focal masses identified. No evidence of intrahepatic ductal dilatation. Spleen is normal size. The gallbladder contains a few stones. Both adrenal glands are normal. Pancreas is normal in appearance. The kidneys are normal in size and attenuation without evidence of hydronephrosis or renal calculi. GI/Bowel: The visualized bowel and mesentery show no mass lesions. Pelvis: No intrapelvic mass is identified. Bladder and rectum are intact. Peritoneum/Retroperit oneum: No free fluid. No lymphadenopathy. No evidence of pneumoperitoneum. Bones/Soft Tissues: Small fat containing umbilical hernia. Grade 1 spondylolisthesis of L4 on L5.. No acute bony abnormalities. [facility] RIS CONSOLIDATED Cole Garcia MD - 07/17/2024 EXAMINATION: CT OF THE CHEST, ABDOMEN, AND PELVIS WITH CONTRAST 07/17/2024 10:22 am TECHNIQUE: CT of the chest, abdomen and pelvis was performed with the administration of intravenous contrast. Multiplanar reformatted images are provided for review. Automated exposure control, iterative reconstruction, and/or weight based adjustment of the mA/kV was utilized to reduce the radiation dose to as low as reasonably achievable. COMPARISON: None HISTORY: ORDERING SYSTEM PROVIDED HISTORY: trauma TECHNOLOGIST PROVIDED HISTORY: trauma Reason for Exam: trauma fall FINDINGS: Chest: Pulmonary arteries: Central pulmonary arteries appear within normal limits. Main pulmonary artery is of normal caliber.. Mediastinum: No suspicious lymphadenopathy. Lungs/pleura:. There is mild bibasilar atelectasis/fibrosis. No pulmonary masses are noted. No pleural effusions are identified. No pneumothorax. Cardiomediastinal Structures: Coronary arterial calcifications are seen. Intimal calcifications associated with the thoracic aorta. Cardiac chambers are normal Soft Tissues/Bones: There are hypertrophic degenerative changes in the thoracic spine. Fracture of the upper sternum. FINDINGS:. Organs: Liver is normal in size with decreased density. No focal masses identified. No evidence of intrahepatic ductal dilatation. Spleen is normal size. The gallbladder contains a few stones. Both adrenal glands are normal. Pancreas is normal in appearance. The kidneys are normal in size and attenuation without evidence of hydronephrosis or renal calculi. GI/Bowel: The visualized bowel and mesentery show no mass lesions. Pelvis: No intrapelvic mass is identified. Bladder and rectum are intact. Peritoneum/Retroperit oneum: No free fluid. No lymphadenopathy. No evidence of pneumoperitoneum. Bones/Soft Tissues: Small fat containing umbilical hernia. Grade 1 spondylolisthesis of L4 on L5.. No acute bony abnormalities. IMPRESSION: 1. No acute intrathoracic, intra-abdominal or intrapelvic abnormalities. 2. Hepatic steatosis. 3. Cholelithiasis. 4. Fracture of the upper sternum [facility] CT Chest and Abdomen and Pel vis W contrast IVOrdered By: Cole Garcia on 07-17-2024 [facility] Work Phone: CT HEAD WO CONTRASTon 2023 CT HEAD WO CONTRAST EXAMINATION: CT OF THE HEAD WITHOUT CONTRAST 07/17/2024 9:20 pm TECHNIQUE: CT of the head was performed without the administration of intravenous contrast. Automated exposure control, iterative reconstruction, and/or weight based adjustment of the mA/kV was utilized to reduce the radiation dose to as low as reasonably achievable. COMPARISON: 07/17/2024 HISTORY: ORDERING SYSTEM PROVIDED HISTORY: Trauma TECHNOLOGIST PROVIDED HISTORY: Trauma Reason for Exam: Fall FINDINGS: BRAIN/VENTRICLES: Again identified is a similar degree of subarachnoid hemorrhage noted along the posterior aspect of the right frontal lobe. No extra-axial fluid collection is seen. No basilar cistern or sulcal effacement. No hydrocephalus is identified. No intraparenchymal hemorrhage or intraventricular hemorrhage is seen. No intracranial mass. ORBITS: The visualized portion of the orbits demonstrate no acute abnormality. SINUSES: No hemorrhagic air-fluid levels in the paranasal sinuses or mastoid air cells. SOFT TISSUES/SKULL: No calvarial fracture. Similar degree of scalp hematoma and swelling. IMPRESSION: 1. Similar degree of subarachnoid hemorrhage along the posterior aspect of the right frontal lobe. 2. Similar degree of scalp hematoma and swelling. Interpreted by: Rah Adams MD Signed by: Rah Adams MD 07/17/24 Final result Normal [facility] CT HEAD WO CONTRAST EXAMINATION: CT OF THE HEAD WITHOUT CONTRAST; CT OF THE CERVICAL SPINE WITHOUT CONTRAST 07/17/2024 10:22 am TECHNIQUE: CT of the head was performed without the administration of intravenous contrast. Automated exposure control, iterative reconstruction, and/or weight based adjustment of the mA/kV was utilized to reduce the radiation dose to as low as reasonably achievable.; CT of the cervical spine was performed without the administration of intravenous contrast. Multiplanar reformatted images are provided for review. Automated exposure control, iterative reconstruction, and/or weight based adjustment of the mA/kV was utilized to reduce the radiation dose to as low as reasonably achievable. COMPARISON: None. HISTORY: ORDERING SYSTEM PROVIDED HISTORY: trauma TECHNOLOGIST PROVIDED HISTORY: trauma Reason for Exam: trauma fall; ORDERING SYSTEM PROVIDED HISTORY: trauma TECHNOLOGIST PROVIDED HISTORY: trauma Reason for Exam: trauma fall CT BRAIN FINDINGS: BRAIN/VENTRICLES: Mild subarachnoid hemorrhage in the right parietal region. The brainstem, and cerebellum have a normal appearance . The falx is midline. The ventricles and peripheral sulci are normal. There is no sign of a space occupying lesion, infarction Orbits: Portion of the orbits demonstrate no acute abnormality. SINUSES: . The imaged portions of the paranasal sinuses are clear. The mastoids and the middle ear chambers are clear. SOFT TISSUES/SKULL: No acute abnormality of the visualized skull. Significant right frontal and biparietal soft tissue swelling. CT CERVICAL SPINE FINDINGS: The cervical spine demonstrates decreased mineralization with normal cervical lordosis. There is no evidence of fracture or subluxation. There is loss of disc height with eburnation of the vertebral endplates at the C4-5, C5-6, C6-7 levels. There are anterior and posterior marginal osteophytes at multiple levels. The central canal is grossly patent.. The pedicles and posterior elements are intact. The prevertebral and paravertebral soft tissues are unremarkable. The atlanto-dens interval and dens are intact. The visualized lung apices are clear. Vascular calcifications are seen compatible with atherosclerotic disease. IMPRESSION: 1. Mild subarachnoid hemorrhage in the right parietal region. Follow-up exam recommended. 2. Significant right frontal and biparietal soft tissue swelling. 3. No acute bony abnormalities are noted in the cervical spine. 4. Multilevel cervical spondylosis and degenerative disc disease. Critical results were called by Dr. Cole Garcia MD to Tika Gee NP on 07/17/2024 at 2:15. RECOMMENDATIONS: Further evaluation of the cervical spine should be obtained with MR imaging if clinically indicated. Interpreted by: Cole Garcia MD Signed by: Cole Garcia MD 07/17/24 Final result Normal [facility] CT Head WO contraston 2023 1. Similar degree of subarachnoid hemorrhage along the posterior aspect of the right frontal lobe. 2. Similar degree of scalp hematoma and swelling. [facility] RIS CONSOLIDATED EXAMINATION: CT OF THE HEAD WITHOUT CONTRAST 07/17/2024 9:20 pm TECHNIQUE: CT of the head was performed without the administration of intravenous contrast. Automated exposure control, iterative reconstruction, and/or weight based adjustment of the mA/kV was utilized to reduce the radiation dose to as low as reasonably achievable. COMPARISON: 07/17/2024 HISTORY: ORDERING SYSTEM PROVIDED HISTORY: Trauma TECHNOLOGIST PROVIDED HISTORY: Trauma Reason for Exam: Fall FINDINGS: BRAIN/VENTRICLES: Again identified is a similar degree of subarachnoid hemorrhage noted along the posterior aspect of the right frontal lobe. No extra-axial fluid collection is seen. No basilar cistern or sulcal effacement. No hydrocephalus is identified. No intraparenchymal hemorrhage or intraventricular hemorrhage is seen. No intracranial mass. ORBITS: The visualized portion of the orbits demonstrate no acute abnormality. SINUSES: No hemorrhagic air-fluid levels in the paranasal sinuses or mastoid air cells. SOFT TISSUES/SKULL: No calvarial fracture. Similar degree of scalp hematoma and swelling. [facility] Rah Rodriguez MD - 07/17/2024 EXAMINATION: CT OF THE HEAD WITHOUT CONTRAST 07/17/2024 9:20 pm TECHNIQUE: CT of the head was performed without the administration of intravenous contrast. Automated exposure control, iterative reconstruction, and/or weight based adjustment of the mA/kV was utilized to reduce the radiation dose to as low as reasonably achievable. COMPARISON: 07/17/2024 HISTORY: ORDERING SYSTEM PROVIDED HISTORY: Trauma TECHNOLOGIST PROVIDED HISTORY: Trauma Reason for Exam: Fall FINDINGS: BRAIN/VENTRICLES: Again identified is a similar degree of subarachnoid hemorrhage noted along the posterior aspect of the right frontal lobe. No extra-axial fluid collection is seen. No basilar cistern or sulcal effacement. No hydrocephalus is identified. No intraparenchymal hemorrhage or intraventricular hemorrhage is seen. No intracranial mass. ORBITS: The visualized portion of the orbits demonstrate no acute abnormality. SINUSES: No hemorrhagic air-fluid levels in the paranasal sinuses or mastoid air cells. SOFT TISSUES/SKULL: No calvarial fracture. Similar degree of scalp hematoma and swelling. IMPRESSION: 1. Similar degree of subarachnoid hemorrhage along the posterior aspect of the right frontal lobe. 2. Similar degree of scalp hematoma and swelling. [facility] Radiology Study observation (narrative) [facility] CT Head WO contrastOrdered B y: Rah Adams on 07-17-2024 [facility] Work Phone: CT LUMBAR SPINE BONY RECONST RUCTIONon 07-17-2024 CT LUMBAR SPINE BONY RECONSTRUCTION EXAMINATION: CT OF THE THORACIC SPINE WITHOUT CONTRAST; CT OF THE LUMBAR SPINE WITHOUT CONTRAST 07/17/2024 1:22 pm: TECHNIQUE: CT of the thoracic spine was performed without the administration of intravenous contrast. Multiplanar reformatted images are provided for review. Automated exposure control, iterative reconstruction, and/or weight based adjustment of the mA/kV was utilized to reduce the radiation dose to as low as reasonably achievable.; CT of the lumbar spine was performed without the administration of intravenous contrast. Multiplanar reformatted images are provided for review. Adjustment of mA and/or kV according to patient size was utilized. Automated exposure control, iterative reconstruction, and/or weight based adjustment of the mA/kV was utilized to reduce the radiation dose to as low as reasonably achievable. COMPARISON: None. HISTORY: ORDERING SYSTEM PROVIDED HISTORY: trauma TECHNOLOGIST PROVIDED HISTORY: trauma Reason for Exam: trauma fall FINDINGS: BONES/ALIGNMENT: Thoracolumbar alignment curvature is maintained. There is thin lucency just below the superior endplate of T7, concerning for mild compression deformity. There is no significant loss of vertebral body height. However, there is mild vertebral body height loss at T3 and T5, age indeterminate. Otherwise no acute fracture or subluxation of the thoracolumbar spine is identified. DEGENERATIVE CHANGES: No significant degenerative changes are identified. SOFT TISSUES: Normal paraspinal soft tissues. For complete soft tissue evaluation, please refer to the accompanying CT chest abdomen pelvis. IMPRESSION: 1. Findings suspicious for mild compression fracture at T7, without significant loss of vertebral body height. 2. Mild vertebral body height loss at T3 and T5, age indeterminate. 3. Otherwise no acute fracture subluxation of the thoracolumbar spine. Interpreted by: Foreign Dewitt MD Signed by: Foreign Dewitt MD 07/17/24 Final result Normal [facility] CT THORACIC SPINE BONY RECON STRUCTIONon 07-17-2024 CT THORACIC SPINE BONY RECONSTRUCTION EXAMINATION: CT OF THE THORACIC SPINE WITHOUT CONTRAST; CT OF THE LUMBAR SPINE WITHOUT CONTRAST 07/17/2024 1:22 pm: TECHNIQUE: CT of the thoracic spine was performed without the administration of intravenous contrast. Multiplanar reformatted images are provided for review. Automated exposure control, iterative reconstruction, and/or weight based adjustment of the mA/kV was utilized to reduce the radiation dose to as low as reasonably achievable.; CT of the lumbar spine was performed without the administration of intravenous contrast. Multiplanar reformatted images are provided for review. Adjustment of mA and/or kV according to patient size was utilized. Automated exposure control, iterative reconstruction, and/or weight based adjustment of the mA/kV was utilized to reduce the radiation dose to as low as reasonably achievable. COMPARISON: None. HISTORY: ORDERING SYSTEM PROVIDED HISTORY: trauma TECHNOLOGIST PROVIDED HISTORY: trauma Reason for Exam: trauma fall FINDINGS: BONES/ALIGNMENT: Thoracolumbar alignment curvature is maintained. There is thin lucency just below the superior endplate of T7, concerning for mild compression deformity. There is no significant loss of vertebral body height. However, there is mild vertebral body height loss at T3 and T5, age indeterminate. Otherwise no acute fracture or subluxation of the thoracolumbar spine is identified. DEGENERATIVE CHANGES: No significant degenerative changes are identified. SOFT TISSUES: Normal paraspinal soft tissues. For complete soft tissue evaluation, please refer to the accompanying CT chest abdomen pelvis. IMPRESSION: 1. Findings suspicious for mild compression fracture at T7, without significant loss of vertebral body height. 2. Mild vertebral body height loss at T3 and T5, age indeterminate. 3. Otherwise no acute fracture subluxation of the thoracolumbar spine. Interpreted by: Foreign Dewitt MD Signed by: Foreign Dewitt MD 07/17/24 Final result Normal [facility] Creatine Kinaseon 07-17-2024 CK [Catalytic activity/Vol] 332 U/L High 26-192 [facility] Comment on above: Performed By: #### E RTPF, CK, FT4, TSH, VD25, GLYHGB, B12, ECENZ #### [email or web address] [address] [place] [address] Patent Searcher: Simón Savage MD Hemoglobin A1Con 07-17-2024 Average glucose Estimated from glycated hemoglobin (Bld) [Mass/Vol] 126 mg/dL [facility] Comment on above: The ADA and AACC rec ommend providing the estimated average glucose result to permit better patient understanding of their HBA1c result. HbA1c (Bld) [Mass fraction] 6.0 % 4.0 - 6.0 % [facility] [employer] Glucose [Mass/Vol] 126 mg/dL Normal [facility] Comment on above: Result Comment: The ADA and AACC recommend providing the estimated average glucose result to permit better patient understanding of their HBA1c result. Performed By: #### E RTPF, CK, FT4, TSH, VD25, GLYHGB, B12, ECENZ ####[email or web address] [place], [place] [id number] lab Director: Simón Savage MD HbA1c (Bld) [Mass fraction] 6.0 % Normal 4.0-6.0 [facility] Comment on above: Performed By: #### E RTPF, CK, FT4, TSH, VD25, GLYHGB, B12, ECENZ ####[id number] [place] [address] lab Director: Simón Savage MD No Panel Informationon 07-17 1. Findings suspicious for mild compression fracture at T7, without significant loss of vertebral body height. 2. Mild vertebral body height loss at T3 and T5, age indeterminate. 3. Otherwise no acute fracture subluxation of the thoracolumbar spine. [facility] EXAMINATION: CT OF THE THORACIC SPINE WITHOUT CONTRAST; CT OF THE LUMBAR SPINE WITHOUT CONTRAST 07/17/2024 1:22 pm: TECHNIQUE: CT of the thoracic spine was performed without the administration of intravenous contrast. Multiplanar reformatted images are provided for review. Automated exposure control, iterative reconstruction, and/or weight based adjustment of the mA/kV was utilized to reduce the radiation dose to as low as reasonably achievable.; CT of the lumbar spine was performed without the administration of intravenous contrast. Multiplanar reformatted images are provided for review. Adjustment of mA and/or kV according to patient size was utilized. Automated exposure control, iterative reconstruction, and/or weight based adjustment of the mA/kV was utilized to reduce the radiation dose to as low as reasonably achievable. COMPARISON: None. HISTORY: ORDERING SYSTEM PROVIDED HISTORY: trauma TECHNOLOGIST PROVIDED HISTORY: trauma Reason for Exam: trauma fall FINDINGS: BONES/ALIGNMENT: Thoracolumbar alignment curvature is maintained. There is thin lucency just below the superior endplate of T7, concerning for mild compression deformity. There is no significant loss of vertebral body height. However, there is mild vertebral body height loss at T3 and T5, age indeterminate. Otherwise no acute fracture or subluxation of the thoracolumbar spine is identified. DEGENERATIVE CHANGES: No significant degenerative changes are identified. SOFT TISSUES: Normal paraspinal soft tissues. For complete soft tissue evaluation, please refer to the accompanying CT chest abdomen pelvis. [facility] Foreign Dewitt MD - 07/17/2024 EXAMINATION: CT OF THE THORACIC SPINE WITHOUT CONTRAST; CT OF THE LUMBAR SPINE WITHOUT CONTRAST 07/17/2024 1:22 pm: TECHNIQUE: CT of the thoracic spine was performed without the administration of intravenous contrast. Multiplanar reformatted images are provided for review. Automated exposure control, iterative reconstruction, and/or weight based adjustment of the mA/kV was utilized to reduce the radiation dose to as low as reasonably achievable.; CT of the lumbar spine was performed without the administration of intravenous contrast. Multiplanar reformatted images are provided for review. Adjustment of mA and/or kV according to patient size was utilized. Automated exposure control, iterative reconstruction, and/or weight based adjustment of the mA/kV was utilized to reduce the radiation dose to as low as reasonably achievable. COMPARISON: None. HISTORY: ORDERING SYSTEM PROVIDED HISTORY: trauma TECHNOLOGIST PROVIDED HISTORY: trauma Reason for Exam: trauma fall FINDINGS: BONES/ALIGNMENT: Thoracolumbar alignment curvature is maintained. There is thin lucency just below the superior endplate of T7, concerning for mild compression deformity. There is no significant loss of vertebral body height. However, there is mild vertebral body height loss at T3 and T5, age indeterminate. Otherwise no acute fracture or subluxation of the thoracolumbar spine is identified. DEGENERATIVE CHANGES: No significant degenerative changes are identified. SOFT TISSUES: Normal paraspinal soft tissues. For complete soft tissue evaluation, please refer to the accompanying CT chest abdomen pelvis. IMPRESSION: 1. Findings suspicious for mild compression fracture at T7, without significant loss of vertebral body height. 2. Mild vertebral body height loss at T3 and T5, age indeterminate. 3. Otherwise no acute fracture subluxation of the thoracolumbar spine. [facility] 1. Mild subarachnoid hemorrhage in the right parietal region. Follow-up exam recommended. 2. Significant right frontal and biparietal soft tissue swelling. 3. No acute bony abnormalities are noted in the cervical spine. 4. Multilevel cervical spondylosis and degenerative disc disease. Critical results were called by Dr. Cole Garcia MD to Tika Gee NP on 07/17/2024 at 2:15. RECOMMENDATIONS: Further evaluation of the cervical spine should be obtained with MR imaging if clinically indicated. [facility] EXAMINATION: CT OF THE HEAD WITHOUT CONTRAST; CT OF THE CERVICAL SPINE WITHOUT CONTRAST 07/17/2024 10:22 am TECHNIQUE: CT of the head was performed without the administration of intravenous contrast. Automated exposure control, iterative reconstruction, and/or weight based adjustment of the mA/kV was utilized to reduce the radiation dose to as low as reasonably achievable.; CT of the cervical spine was performed without the administration of intravenous contrast. Multiplanar reformatted images are provided for review. Automated exposure control, iterative reconstruction, and/or weight based adjustment of the mA/kV was utilized to reduce the radiation dose to as low as reasonably achievable. COMPARISON: None. HISTORY: ORDERING SYSTEM PROVIDED HISTORY: trauma TECHNOLOGIST PROVIDED HISTORY: trauma Reason for Exam: trauma fall; ORDERING SYSTEM PROVIDED HISTORY: trauma TECHNOLOGIST PROVIDED HISTORY: trauma Reason for Exam: trauma fall CT BRAIN FINDINGS: BRAIN/VENTRICLES: Mild subarachnoid hemorrhage in the right parietal region. The brainstem, and cerebellum have a normal appearance . The falx is midline. The ventricles and peripheral sulci are normal. There is no sign of a space occupying lesion, infarction Orbits: Portion of the orbits demonstrate no acute abnormality. SINUSES: . The imaged portions of the paranasal sinuses are clear. The mastoids and the middle ear chambers are clear. SOFT TISSUES/SKULL: No acute abnormality of the visualized skull. Significant right frontal and biparietal soft tissue swelling. CT CERVICAL SPINE FINDINGS: The cervical spine demonstrates decreased mineralization with normal cervical lordosis. There is no evidence of fracture or subluxation. There is loss of disc height with eburnation of the vertebral endplates at the C4-5, C5-6, C6-7 levels. There are anterior and posterior marginal osteophytes at multiple levels. The central canal is grossly patent.. The pedicles and posterior elements are intact. The prevertebral and paravertebral soft tissues are unremarkable. The atlanto-dens interval and dens are intact. The visualized lung apices are clear. Vascular calcifications are seen compatible with atherosclerotic disease. [facility] Cole Garcia MD - 07/17/2024 EXAMINATION: CT OF THE HEAD WITHOUT CONTRAST; CT OF THE CERVICAL SPINE WITHOUT CONTRAST 07/17/2024 10:22 am TECHNIQUE: CT of the head was performed without the administration of intravenous contrast. Automated exposure control, iterative reconstruction, and/or weight based adjustment of the mA/kV was utilized to reduce the radiation dose to as low as reasonably achievable.; CT of the cervical spine was performed without the administration of intravenous contrast. Multiplanar reformatted images are provided for review. Automated exposure control, iterative reconstruction, and/or weight based adjustment of the mA/kV was utilized to reduce the radiation dose to as low as reasonably achievable. COMPARISON: None. HISTORY: ORDERING SYSTEM PROVIDED HISTORY: trauma TECHNOLOGIST PROVIDED HISTORY: trauma Reason for Exam: trauma fall; ORDERING SYSTEM PROVIDED HISTORY: trauma TECHNOLOGIST PROVIDED HISTORY: trauma Reason for Exam: trauma fall CT BRAIN FINDINGS: BRAIN/VENTRICLES: Mild subarachnoid hemorrhage in the right parietal region. The brainstem, and cerebellum have a normal appearance . The falx is midline. The ventricles and peripheral sulci are normal. There is no sign of a space occupying lesion, infarction Orbits: Portion of the orbits demonstrate no acute abnormality. SINUSES: . The imaged portions of the paranasal sinuses are clear. The mastoids and the middle ear chambers are clear. SOFT TISSUES/SKULL: No acute abnormality of the visualized skull. Significant right frontal and biparietal soft tissue swelling. CT CERVICAL SPINE FINDINGS: The cervical spine demonstrates decreased mineralization with normal cervical lordosis. There is no evidence of fracture or subluxation. There is loss of disc height with eburnation of the vertebral endplates at the C4-5, C5-6, C6-7 levels. There are anterior and posterior marginal osteophytes at multiple levels. The central canal is grossly patent.. The pedicles and posterior elements are intact. The prevertebral and paravertebral soft tissues are unremarkable. The atlanto-dens interval and dens are intact. The visualized lung apices are clear. Vascular calcifications are seen compatible with atherosclerotic disease. IMPRESSION: 1. Mild subarachnoid hemorrhage in the right parietal region. Follow-up exam recommended. 2. Significant right frontal and biparietal soft tissue swelling. 3. No acute bony abnormalities are noted in the cervical spine. 4. Multilevel cervical spondylosis and degenerative disc disease. Critical results were called by Dr. Cole Garcia MD to Tika Gee NP on 07/17/2024 at 2:15. RECOMMENDATIONS: Further evaluation of the cervical spine should be obtained with MR imaging if clinically indicated. [facility] Left ankle: No acute fracture or dislocation. Left foot: No acute fracture or dislocation Right ankle: No acute fracture or dislocation. Left shoulder: No acute fracture or dislocation. Mild pulmonary vascular congestion and left basilar airspace opacity. Cardiomegaly. Further evaluation with chest x-ray recommended. Left humerus: No acute osseous abnormality. [facility] EXAMINATION: 3 XRAY VIEWS OF THE LEFT SHOULDER; THREE XRAY VIEWS OF THE LEFT ANKLE; THREE XRAY VIEWS OF THE RIGHT ANKLE; TWO XRAY VIEWS OF THE LEFT FOOT; TWO XRAY VIEWS OF THE LEFT HUMERUS 07/17/2024 2:08 pm COMPARISON: None. HISTORY: ORDERING SYSTEM PROVIDED HISTORY: Left shoulder pain TECHNOLOGIST PROVIDED HISTORY: Left shoulder pain 69-year-old female with left shoulder pain FINDINGS: Left ankle: Ankle mortise is intact. Osseous alignment is normal. Joint spaces are well maintained. No acute fracture or gross dislocation is seen. No significant soft tissue swelling is seen. No tibiotalar joint effusion is identified. Boehler's angle is maintained. Left foot: Osseous alignment is normal. Joint spaces are well maintained. No marginal erosions are identified. No acute fracture or gross dislocation is seen. The medial and middle cuneiforms demonstrate proper alignment with the base of the 1st and 2nd metatarsals respectively. No tibiotalar joint effusion is seen. Boehler's angle is maintained. Right ankle: Ankle mortise is intact. Osseous alignment is normal. Joint spaces are well maintained. No acute fracture or gross dislocation is seen. No significant soft tissue swelling is seen. No tibiotalar joint effusion is identified. Boehler's angle is maintained. Left shoulder: Left AC and glenoid joints grossly unremarkable. Visualized left-sided ribs appear intact. Mild left basilar atelectasis. Cardiomegaly. Scattered soft tissue calcifications in the right arm. Mild pulmonary vascular congestion. No acute fracture or dislocation. Left humerus: Left humerus appears intact. Osseous alignment is normal. Joint spaces well maintained. No acute fracture or dislocation. Visualized left-sided ribs appear intact. [facility] Alex Morataya MD - 07/17/2024 EXAMINATION: 3 XRAY VIEWS OF THE LEFT SHOULDER; THREE XRAY VIEWS OF THE LEFT ANKLE; THREE XRAY VIEWS OF THE RIGHT ANKLE; TWO XRAY VIEWS OF THE LEFT FOOT; TWO XRAY VIEWS OF THE LEFT HUMERUS 07/17/2024 2:08 pm COMPARISON: None. HISTORY: ORDERING SYSTEM PROVIDED HISTORY: Left shoulder pain TECHNOLOGIST PROVIDED HISTORY: Left shoulder pain 69-year-old female with left shoulder pain FINDINGS: Left ankle: Ankle mortise is intact. Osseous alignment is normal. Joint spaces are well maintained. No acute fracture or gross dislocation is seen. No significant soft tissue swelling is seen. No tibiotalar joint effusion is identified. Boehler's angle is maintained. Left foot: Osseous alignment is normal. Joint spaces are well maintained. No marginal erosions are identified. No acute fracture or gross dislocation is seen. The medial and middle cuneiforms demonstrate proper alignment with the base of the 1st and 2nd metatarsals respectively. No tibiotalar joint effusion is seen. Boehler's angle is maintained. Right ankle: Ankle mortise is intact. Osseous alignment is normal. Joint spaces are well maintained. No acute fracture or gross dislocation is seen. No significant soft tissue swelling is seen. No tibiotalar joint effusion is identified. Boehler's angle is maintained. Left shoulder: Left AC and glenoid joints grossly unremarkable. Visualized left-sided ribs appear intact. Mild left basilar atelectasis. Cardiomegaly. Scattered soft tissue calcifications in the right arm. Mild pulmonary vascular congestion. No acute fracture or dislocation. Left humerus: Left humerus appears intact. Osseous alignment is normal. Joint spaces well maintained. No acute fracture or dislocation. Visualized left-sided ribs appear intact. IMPRESSION: Left ankle: No acute fracture or dislocation. Left foot: No acute fracture or dislocation Right ankle: No acute fracture or dislocation. Left shoulder: No acute fracture or dislocation. Mild pulmonary vascular congestion and left basilar airspace opacity. Cardiomegaly. Further evaluation with chest x-ray recommended. Left humerus: No acute osseous abnormality. [facility] Interpretation and review of laboratory results Abnormal [facility] Radiology Study observation (narrative) [facility] Radiology Study observation (narrative) [facility] No Panel InformationOrdered By: Foreign Dewitt on 07-17-2024 [facility] Work Phone: No Panel InformationOrdered By: Alex Morataya on 07-17-2024 [facility] Work Phone: T4, Freeon 07-17-2024 Free T4 [Mass/Vol] 1.0 ng/dL 0.92 - 1. 68 ng/dL [facility] TROP/MYOGLOBINon 07-17-2024 Myoglobin [Mass/Vol] 777 ng/mL High 25 - 58 ng/mL [facility] Troponin I.cardiac High sensitivity method [Mass/Vol] ng/L 0 - 14 ng/L [facility] Comment on above: High Sensitivity Tro ponin values cannot be compared with other Troponin methodologies. TSHon 07-17-2024 TSH Qn 2.52 m[IU]/L [facility] TYPE AND SCREENon 07-17-2024 ABO and Rh group Nom (Bld) Blood group O Rh(D) positive [facility] Arm Band Number [id number] [facility] Blood Bank Sample Expiration 07/20/2024,2359 [facility] Blood group antibodies identified Nom Negative [facility] Thyroid Stim. Horm.on 2023 Thyroid Stim. Horm. 2.52 uIU/mL Normal 0.27-4.20 [facility] Comment on above: Performed By: #### E RTPF, CK, FT4, TSH, VD25, GLYHGB, B12, ECENZ #### [email or web address] [address] [place] [address] Patent Searcher: Simón Savage MD Thyroxine, Freeon 07-17-2024 Thyroxine, Free 1.0 ng/dL Normal 0.92-1.68 [facility] Comment on above: Performed By: #### E RTPF, CK, FT4, TSH, VD25, GLYHGB, B12, ECENZ #### [facility] [address] [place] [address] Patent Searcher: Simón Savage MD Trauma Panelon 07-17-2024 Anion gap [Moles/Vol] 11 mmol/L 9 - 16 mmol/L [facility] aPTT Coag (Bld) [Time] 28.4 s [facility] Comment on above: IV Heparin Therapy Range: 66.0-92.0 sec Blood Bank Specimen BILL FOR SERVICES PERFORMED [facility] Carboxyhemoglobin (Bld) [Mass fraction] 1.3 % 0 - 5 % [facility] Comment on above: Reference Range: Non-Smokers 0-2% Average Smoker 2-4% Heavy Smoker <10% Chloride [Moles/Vol] 107 mmol/L 98 - 10 7 mmol/L [facility] CO2 [Moles/Vol] 23 mmol/L 20 - 31 mmol/L [facility] Creatinine [Mass/Vol] 0.6 mg/dL 0.50 - 0.90 mg/dL [facility] Erythrocyte distribution width (RBC) [Ratio] 13.9 % 11.8 - 14.4 % [facility] Est, Glodenilson Nuñezt Rate - [facility] Comment on above: These results are not intended for use in patients <18 years of age. eGFR results are calculated without a race factor using the 2020 CKD-EPI equation. Careful clinical correlation is recommended, particularly when comparing to results calculated using previous equations. The CKD-EPI equation is less accurate in patients with extremes of muscle mass, extra-renal metabolism of creatine, excessive creatine ingestion, or following therapy that affects renal tubular secretion. Ethanol percent <0.010 NINF - 0.010 % [facility] Ethanolamine [Mass/Vol] <10 NINF - 10 mg/dL [facility] Glucose [Mass/Vol] 129 mg/dL High 74 - 99 mg/dL [facility] HCO3 (Bld) [Moles/Vol] 25.0 mmol/L 24 - 30 mmol/L [facility] Hematocrit (Bld) [Volume fraction] 38.8 % 36.3 - 47.1 % [facility] Hemoglobin (Bld) [Mass/Vol] 12.4 g/dL 11.9 - 15.1 g/dL [facility] INR Coag (PPP) [Relative time] 1.0 {INR} [facility] Comment on above: Therapeutic Range: Moderate Anticoagulant Intensity: INR = 2.0-3.0 High Anticoagulant Intensity: INR = 2.5-3.5 MCH (RBC) [Entitic mass] 28.1 pg 25.2 - 33.5 pg [facility] MCHC (RBC) [Mass/Vol] 32.0 g/dL 28.4 - 34.8 g/dL [facility] MCV (RBC) [Entitic vol] 87.8 fL 82.6 - 102.9 fL [facility] Negative Base Excess, Chava 1.0 mmol/L 0.0 - 2.0 mmol/L [facility] Nucleated RBC/100 WBC (Bld) [Ratio] 0.0 % 0.0 per 100 WBC [facility] Oxygen saturation in Blood 67.2 % 60.0 - 85.0 % [facility] Oxygen/Inspired gas Respiratory system --on ventilator INFORMATION NOT PROVIDED [facility] pCO2, Chava 49.5 [facility] pH, Chava 7.323 7.320 - 7.420 [facility] Platelet mean volume (Bld) [Entitic vol] 10.0 fL 8.1 - 13.5 fL [facility] Platelets (Bld) [#/Vol] 253 10*3/uL [facility] PO2, Chava 39.4 [facility] Potassium [Moles/Vol] 4.0 mmol/L 3.7 - 5.3 mmol/L [facility] PT Coag (PPP) [Time] 12.8 s [facility] RBC (Bld) [#/Vol] 4.42 10*6/uL 3.95 - 5.1 1 m/uL [facility] Sodium [Moles/Vol] 141 mmol/L 136 - 145 mmol/L [facility] Urea nitrogen [Mass/Vol] 16 mg/dL 8 - 23 mg/dL [facility] WBC other (Bld) [#/Vol] 13.7 High [facility] Trauma Profileon 07-17-2024 Anion gap [Moles/Vol] 11 mmol/L Normal 9-16 [facility] Comment on above: Performed By: #### E RTPF, CK, FT4, TSH, VD25, GLYHGB, B12, ECENZ #### [facility] [address] [place] [address] Patent Searcher: Simón Savage MD Chloride [Moles/Vol] 107 mmol/L Normal 98-107 [facility] Comment on above: Performed By: #### E RTPF, CK, FT4, TSH, VD25, GLYHGB, B12, ECENZ #### [address] [address] Patent Searcher: Simón Savage MD CO2 [Moles/Vol] 23 mmol/L Normal 20-31 [facility] Comment on above: Performed By: #### E RTPF, CK, FT4, TSH, VD25, GLYHGB, B12, ECENZ #### [address] [address] Patent Searcher: Simón Savage MD Creatinine [Mass/Vol] 0.6 mg/dL Normal 0.50-0.90 [facility] Comment on above: Performed By: #### E RTPF, CK, FT4, TSH, VD25, GLYHGB, B12, ECENZ #### [address] [address] Patent Searcher: Simón Savage MD Ethanol [Mass/Vol] mg/dL Normal <10 [facility] Comment on above: Performed By: #### E RTPF, CK, FT4, TSH, VD25, GLYHGB, B12, ECENZ #### [address] [address] Patent Searcher: Simón Savage MD Ethanol percent <0.010 Normal <0.010 [facility] Comment on above: Performed By: #### E RTPF, CK, FT4, TSH, VD25, GLYHGB, B12, ECENZ #### [address] [address] Patent Searcher: Simón Savage MD GFR/1.73 sq M.predicted among non-blacks MDRD (S/P/Bld) [Vol rate/Area] mL/min/{1.73_m2} Normal >60 [facility] Comment on above: Result Comment: These results are not intended for use in patients <18 years of age. eGFR results are calculated without a race factor using the 2020 CKD-EPI equation. Careful clinical correlation is recommended, particularly when comparing to results calculated using previous equations. The CKD-EPI equation is less accurate in patients with extremes of muscle mass, extra-renal metabolism of creatine, excessive creatine ingestion, or following therapy that affects renal tubular secretion. Performed By: #### E RTPF, CK, FT4, TSH, VD25, GLYHGB, B12, ECENZ #### [address] [address] Patent Searcher: Simón Savage MD Glucose [Mass/Vol] 129 mg/dL High 74-99 [facility] Comment on above: Performed By: #### E RTPF, CK, FT4, TSH, VD25, GLYHGB, B12, ECENZ #### [address] [address] Patent Searcher: Simón Savage MD Potassium [Moles/Vol] 4.0 mmol/L Normal 3.7-5.3 [facility] Comment on above: Performed By: #### E RTPF, CK, FT4, TSH, VD25, GLYHGB, B12, ECENZ #### [address] [address] Patent Searcher: Simón Savage MD Sodium [Moles/Vol] 141 mmol/L Normal 136-145 [facility] Comment on above: Performed By: #### E RTPF, CK, FT4, TSH, VD25, GLYHGB, B12, ECENZ #### [address] [address] Patent Searcher: Simón Savage MD Urea nitrogen [Mass/Vol] 16 mg/dL Normal 8-23 [facility] Comment on above: Performed By: #### E RTPF, CK, FT4, TSH, VD25, GLYHGB, B12, ECENZ #### [address] [id number] Patent Searcher: Simón Savage MD aPTT Coag (Bld) [Time] 28.4 s Normal 23.0-36.5 [facility] Comment on above: Result Comment: IV Heparin Therapy Range: 66.0-92.0 sec Performed By: #### E RTPF, CK, FT4, TSH, VD25, GLYHGB, B12, ECENZ #### [address] [id number] Patent Searcher: Simón Savage MD INR Coag (PPP) [Relative time] 1.0 {INR} Normal [facility] Comment on above: Result Comment: Therapeutic Range: Moderate Anticoagulant Intensity: INR = 2.0-3.0 High Anticoagulant Intensity: INR = 2.5-3.5 Performed By: #### E RTPF, CK, FT4, TSH, VD25, GLYHGB, B12, ECENZ #### [address] [id number] Patent Searcher: Simón Savage MD PT Coag (PPP) [Time] 12.8 s Normal 11.7-14.9 [facility] Comment on above: Performed By: #### E RTPF, CK, FT4, TSH, VD25, GLYHGB, B12, ECENZ #### [address] [id number] Patent Searcher: Simón Savage MD Body Temp. 37.0 Normal [facility] Comment on above: Performed By: #### E RTPF, CK, FT4, TSH, VD25, GLYHGB, B12, ECENZ #### [address] [id number] Patent Searcher: Simón Savage MD Carboxy Hgb 1.3 % Normal 0-5 [facility] Comment on above: Result Comment: Reference Range: Non-Smokers 0-2% Average Smoker 2-4% Heavy Smoker <10% Performed By: #### E RTPF, CK, FT4, TSH, VD25, GLYHGB, B12, ECENZ #### [address] [id number] Patent Searcher: Simón Savage MD FIO2 INFORMATION NOT PROVIDED Normal [facility] Comment on above: Performed By: #### E RTPF, CK, FT4, TSH, VD25, GLYHGB, B12, ECENZ #### [address] [id number] Patent Searcher: Simón Savage MD HCO3 (Bld) [Moles/Vol] 25.0 mmol/L Normal 24-30 [facility] Comment on above: Performed By: #### E RTPF, CK, FT4, TSH, VD25, GLYHGB, B12, ECENZ #### [address] [id number] Patent Searcher: Simón Savage MD Negative Base Excess 1.0 mmol/L Normal 0.0-2.0 [facility] Comment on above: Performed By: #### E RTPF, CK, FT4, TSH, VD25, GLYHGB, B12, ECENZ #### [address] [id number] Patent Searcher: Simón Savage MD Oxygen saturation in Blood 67.2 % Normal 60.0-85.0 [facility] Comment on above: Performed By: #### E RTPF, CK, FT4, TSH, VD25, GLYHGB, B12, ECENZ #### [address] [id number] Patent Searcher: Simón Savage MD pCO2 49.5 mm Hg Normal 39-55 [facility] Comment on above: Performed By: #### E RTPF, CK, FT4, TSH, VD25, GLYHGB, B12, ECENZ #### [address] [id number] Patent Searcher: Simón Savage MD pH (Bld) 7.323 [pH] Normal 7.320-7.420 [facility] Comment on above: Performed By: #### E RTPF, CK, FT4, TSH, VD25, GLYHGB, B12, ECENZ #### [address] [id number] Patent Searcher: Simón Savage MD pO2 39.4 mm Hg Normal 30-50 [facility] Comment on above: Performed By: #### E RTPF, CK, FT4, TSH, VD25, GLYHGB, B12, ECENZ #### [place] [address] Patent Searcher: Simón Savage MD Erythrocyte distribution width (RBC) [Ratio] 13.9 % Normal 11.8-14.4 [facility] Comment on above: Performed By: #### E RTPF, CK, FT4, TSH, VD25, GLYHGB, B12, ECENZ #### [address] [id number] Patent Searcher: Simón Savage MD Hematocrit (Bld) [Volume fraction] 38.8 % Normal 36.3-47.1 [facility] Comment on above: Performed By: #### E RTPF, CK, FT4, TSH, VD25, GLYHGB, B12, ECENZ #### [address] [id number] Patent Searcher: Simón Savage MD Hemoglobin (Bld) [Mass/Vol] 12.4 g/dL Normal 11.9-15.1 [facility] Comment on above: Performed By: #### E RTPF, CK, FT4, TSH, VD25, GLYHGB, B12, ECENZ #### [address] [id number] Patent Searcher: Simón Savage MD MCH (RBC) [Entitic mass] 28.1 pg Normal 25.2-33.5 [facility] Comment on above: Performed By: #### E RTPF, CK, FT4, TSH, VD25, GLYHGB, B12, ECENZ #### [address] [id number] Patent Searcher: Simón Savage MD MCHC (RBC) [Mass/Vol] 32.0 g/dL Normal 28.4-34.8 [facility] Comment on above: Performed By: #### E RTPF, CK, FT4, TSH, VD25, GLYHGB, B12, ECENZ #### [place] [address] Patent Searcher: Simón Savage MD MCV (RBC) [Entitic vol] 87.8 fL Normal 82.6-102.9 [facility] Comment on above: Performed By: #### E RTPF, CK, FT4, TSH, VD25, GLYHGB, B12, ECENZ #### [address] [id number] Patent Searcher: Simón Savage MD NRBC Automated 0.0 per 100 WBC Normal 0.0 [facility] Comment on above: Performed By: #### E RTPF, CK, FT4, TSH, VD25, GLYHGB, B12, ECENZ #### [address] [id number] Patent Searcher: Simón Savage MD Platelet mean volume (Bld) [Entitic vol] 10.0 fL Normal 8.1-13.5 [facility] Comment on above: Performed By: #### E RTPF, CK, FT4, TSH, VD25, GLYHGB, B12, ECENZ #### [address] [id number] Patent Searcher: Simón Savage MD Platelets (Bld) [#/Vol] 253 10*3/uL Normal 138-453 [facility] Comment on above: Performed By: #### E RTPF, CK, FT4, TSH, VD25, GLYHGB, B12, ECENZ #### [address] [id number] Patent Searcher: Simón Savage MD RBC (Bld) [#/Vol] 4.42 10*6/uL Normal 3.95-5.11 [facility] Comment on above: Performed By: #### E RTPF, CK, FT4, TSH, VD25, GLYHGB, B12, ECENZ #### [address] [id number] Patent Searcher: Simón Savage MD WBC (Bld) [#/Vol] 13.7 10*3/uL High 3.5-11.3 [facility] Comment on above: Performed By: #### E RTPF, CK, FT4, TSH, VD25, GLYHGB, B12, ECENZ #### [address] [id number] Patent Searcher: Simón Savage MD Blood Bank BILL FOR SERVICES PERFORMED Normal [facility] Comment on above: Performed By: #### E RTPF, CK, FT4, TSH, VD25, GLYHGB, B12, ECENZ #### [facility] [address] [place] [id number] Patent Searcher: Simón Savage MD Trop/Myoglobinon 07-17-2024 Myoglobin [Mass/Vol] 777 ng/mL High 25-58 [facility] Comment on above: Performed By: #### E RTPF, CK, FT4, TSH, VD25, GLYHGB, B12, ECENZ #### [facility] [address] [place] [address] Patent Searcher: Simón Savage MD Troponin, High Sens <6 Normal 0-14 [facility] Comment on above: Result Comment: High Sensitivity Troponin values cannot be compared with other Troponin methodologies. Performed By: #### E RTPF, CK, FT4, TSH, VD25, GLYHGB, B12, ECENZ #### [facility] [address] [place] [address] Patent Searcher: Simón Savage MD Type + Screenon 07-17-2024 Type + Screen Sample Expiration 07/20/2024,2359 Arm Band Number [id number] ABO/Rh(D) O POSITIVE Antibody Screen NEGATIVE Normal [facility] Comment on above: Performed By: #### T YS ####[facility] [place] [address] Lab Director: Simón Savage MD Vitamin B12on 07-17-2024 Cobalamin (Vitamin B12) [Mass/Vol] 1543 pg/mL High 232 - 1245 pg/mL [facility] [employer] [facility] Interpretation and review of laboratory results Abnormal [facility] [employer] [facility] Cobalamin (Vitamin B12) [Mass/Vol] 1543 pg/mL High 232-1245 [facility] Comment on above: Performed By: #### E RTPF, CK, FT4, TSH, VD25, GLYHGB, B12, ECENZ #### [email or web address] [address] [place] [address] Patent Searcher: Simón Savage MD Vitamin D 25 Hydroxyon 07-17 25-hydroxyvitamin D3 [Mass/Vol] 34.5 ng/mL 30.0 - 100.0 ng/mL [facility] [employer] [facility] Comment on above: Reference Range: Vitamin D status Range Deficiency <20 ng/mL Mild Deficiency 20-30 ng/mL Sufficiency 30-100 ng/mL Toxicity >100 ng/mL Vitamin D 25 OHon 07-17-2024 Vitamin D 25 OH 34.5 ng/mL Normal 30.0-100.0 [facility] Comment on above: Result Comment: Reference Range: Vitamin D status Range Deficiency <20 ng/mL Mild Deficiency 20-30 ng/mL Sufficiency 30-100 ng/mL Toxicity >100 ng/mL Performed By: #### E RTPF, CK, FT4, TSH, VD25, GLYHGB, B12, ECENZ #### [facility] [place] [id number] Patent Searcher: Simón Savage MD XR ANKLE LEFT (MIN 3 VIEWS)o n 07-17-2024 XR ANKLE LEFT (MIN 3 VIEWS) EXAMINATION: 3 XRAY VIEWS OF THE LEFT SHOULDER; THREE XRAY VIEWS OF THE LEFT ANKLE; THREE XRAY VIEWS OF THE RIGHT ANKLE; TWO XRAY VIEWS OF THE LEFT FOOT; TWO XRAY VIEWS OF THE LEFT HUMERUS 07/17/2024 2:08 pm COMPARISON: None. HISTORY: ORDERING SYSTEM PROVIDED HISTORY: Left shoulder pain TECHNOLOGIST PROVIDED HISTORY: Left shoulder pain 69-year-old female with left shoulder pain FINDINGS: Left ankle: Ankle mortise is intact. Osseous alignment is normal. Joint spaces are well maintained. No acute fracture or gross dislocation is seen. No significant soft tissue swelling is seen. No tibiotalar joint effusion is identified. Boehler's angle is maintained. Left foot: Osseous alignment is normal. Joint spaces are well maintained. No marginal erosions are identified. No acute fracture or gross dislocation is seen. The medial and middle cuneiforms demonstrate proper alignment with the base of the 1st and 2nd metatarsals respectively. No tibiotalar joint effusion is seen. Boehler's angle is maintained. Right ankle: Ankle mortise is intact. Osseous alignment is normal. Joint spaces are well maintained. No acute fracture or gross dislocation is seen. No significant soft tissue swelling is seen. No tibiotalar joint effusion is identified. Boehler's angle is maintained. Left shoulder: Left AC and glenoid joints grossly unremarkable. Visualized left-sided ribs appear intact. Mild left basilar atelectasis. Cardiomegaly. Scattered soft tissue calcifications in the right arm. Mild pulmonary vascular congestion. No acute fracture or dislocation. Left humerus: Left humerus appears intact. Osseous alignment is normal. Joint spaces well maintained. No acute fracture or dislocation. Visualized left-sided ribs appear intact. IMPRESSION: Left ankle: No acute fracture or dislocation. Left foot: No acute fracture or dislocation Right ankle: No acute fracture or dislocation. Left shoulder: No acute fracture or dislocation. Mild pulmonary vascular congestion and left basilar airspace opacity. Cardiomegaly. Further evaluation with chest x-ray recommended. Left humerus: No acute osseous abnormality. Interpreted by: Alex Morataya MD Signed by: Alex Morataya MD 07/17/24 Final result Normal [facility] XR ANKLE RIGHT (MIN 3 VIEWS) on 07-17-2024 XR ANKLE RIGHT (MIN 3 VIEWS) EXAMINATION: 3 XRAY VIEWS OF THE LEFT SHOULDER; THREE XRAY VIEWS OF THE LEFT ANKLE; THREE XRAY VIEWS OF THE RIGHT ANKLE; TWO XRAY VIEWS OF THE LEFT FOOT; TWO XRAY VIEWS OF THE LEFT HUMERUS 07/17/2024 2:08 pm COMPARISON: None. HISTORY: ORDERING SYSTEM PROVIDED HISTORY: Left shoulder pain TECHNOLOGIST PROVIDED HISTORY: Left shoulder pain 69-year-old female with left shoulder pain FINDINGS: Left ankle: Ankle mortise is intact. Osseous alignment is normal. Joint spaces are well maintained. No acute fracture or gross dislocation is seen. No significant soft tissue swelling is seen. No tibiotalar joint effusion is identified. Boehler's angle is maintained. Left foot: Osseous alignment is normal. Joint spaces are well maintained. No marginal erosions are identified. No acute fracture or gross dislocation is seen. The medial and middle cuneiforms demonstrate proper alignment with the base of the 1st and 2nd metatarsals respectively. No tibiotalar joint effusion is seen. Boehler's angle is maintained. Right ankle: Ankle mortise is intact. Osseous alignment is normal. Joint spaces are well maintained. No acute fracture or gross dislocation is seen. No significant soft tissue swelling is seen. No tibiotalar joint effusion is identified. Boehler's angle is maintained. Left shoulder: Left AC and glenoid joints grossly unremarkable. Visualized left-sided ribs appear intact. Mild left basilar atelectasis. Cardiomegaly. Scattered soft tissue calcifications in the right arm. Mild pulmonary vascular congestion. No acute fracture or dislocation. Left humerus: Left humerus appears intact. Osseous alignment is normal. Joint spaces well maintained. No acute fracture or dislocation. Visualized left-sided ribs appear intact. IMPRESSION: Left ankle: No acute fracture or dislocation. Left foot: No acute fracture or dislocation Right ankle: No acute fracture or dislocation. Left shoulder: No acute fracture or dislocation. Mild pulmonary vascular congestion and left basilar airspace opacity. Cardiomegaly. Further evaluation with chest x-ray recommended. Left humerus: No acute osseous abnormality. Interpreted by: Alex Morataya MD Signed by: Alex Morataya MD 07/17/24 Final result Normal [facility] XR FOOT LEFT (2 VIEWS)on XR FOOT LEFT (2 VIEWS) EXAMINATION: 3 XRAY VIEWS OF THE LEFT SHOULDER; THREE XRAY VIEWS OF THE LEFT ANKLE; THREE XRAY VIEWS OF THE RIGHT ANKLE; TWO XRAY VIEWS OF THE LEFT FOOT; TWO XRAY VIEWS OF THE LEFT HUMERUS 07/17/2024 2:08 pm COMPARISON: None. HISTORY: ORDERING SYSTEM PROVIDED HISTORY: Left shoulder pain TECHNOLOGIST PROVIDED HISTORY: Left shoulder pain 69-year-old female with left shoulder pain FINDINGS: Left ankle: Ankle mortise is intact. Osseous alignment is normal. Joint spaces are well maintained. No acute fracture or gross dislocation is seen. No significant soft tissue swelling is seen. No tibiotalar joint effusion is identified. Boehler's angle is maintained. Left foot: Osseous alignment is normal. Joint spaces are well maintained. No marginal erosions are identified. No acute fracture or gross dislocation is seen. The medial and middle cuneiforms demonstrate proper alignment with the base of the 1st and 2nd metatarsals respectively. No tibiotalar joint effusion is seen. Boehler's angle is maintained. Right ankle: Ankle mortise is intact. Osseous alignment is normal. Joint spaces are well maintained. No acute fracture or gross dislocation is seen. No significant soft tissue swelling is seen. No tibiotalar joint effusion is identified. Boehler's angle is maintained. Left shoulder: Left AC and glenoid joints grossly unremarkable. Visualized left-sided ribs appear intact. Mild left basilar atelectasis. Cardiomegaly. Scattered soft tissue calcifications in the right arm. Mild pulmonary vascular congestion. No acute fracture or dislocation. Left humerus: Left humerus appears intact. Osseous alignment is normal. Joint spaces well maintained. No acute fracture or dislocation. Visualized left-sided ribs appear intact. IMPRESSION: Left ankle: No acute fracture or dislocation. Left foot: No acute fracture or dislocation Right ankle: No acute fracture or dislocation. Left shoulder: No acute fracture or dislocation. Mild pulmonary vascular congestion and left basilar airspace opacity. Cardiomegaly. Further evaluation with chest x-ray recommended. Left humerus: No acute osseous abnormality. Interpreted by: Alex Morataya MD Signed by: Alex Morataya MD 07/17/24 Final result Normal [facility] XR HUMERUS LEFT (MIN 2 VIEWS )on 07-17-2024 XR HUMERUS LEFT (MIN 2 VIEWS) EXAMINATION: 3 XRAY VIEWS OF THE LEFT SHOULDER; THREE XRAY VIEWS OF THE LEFT ANKLE; THREE XRAY VIEWS OF THE RIGHT ANKLE; TWO XRAY VIEWS OF THE LEFT FOOT; TWO XRAY VIEWS OF THE LEFT HUMERUS 07/17/2024 2:08 pm COMPARISON: None. HISTORY: ORDERING SYSTEM PROVIDED HISTORY: Left shoulder pain TECHNOLOGIST PROVIDED HISTORY: Left shoulder pain 69-year-old female with left shoulder pain FINDINGS: Left ankle: Ankle mortise is intact. Osseous alignment is normal. Joint spaces are well maintained. No acute fracture or gross dislocation is seen. No significant soft tissue swelling is seen. No tibiotalar joint effusion is identified. Boehler's angle is maintained. Left foot: Osseous alignment is normal. Joint spaces are well maintained. No marginal erosions are identified. No acute fracture or gross dislocation is seen. The medial and middle cuneiforms demonstrate proper alignment with the base of the 1st and 2nd metatarsals respectively. No tibiotalar joint effusion is seen. Boehler's angle is maintained. Right ankle: Ankle mortise is intact. Osseous alignment is normal. Joint spaces are well maintained. No acute fracture or gross dislocation is seen. No significant soft tissue swelling is seen. No tibiotalar joint effusion is identified. Boehler's angle is maintained. Left shoulder: Left AC and glenoid joints grossly unremarkable. Visualized left-sided ribs appear intact. Mild left basilar atelectasis. Cardiomegaly. Scattered soft tissue calcifications in the right arm. Mild pulmonary vascular congestion. No acute fracture or dislocation. Left humerus: Left humerus appears intact. Osseous alignment is normal. Joint spaces well maintained. No acute fracture or dislocation. Visualized left-sided ribs appear intact. IMPRESSION: Left ankle: No acute fracture or dislocation. Left foot: No acute fracture or dislocation Right ankle: No acute fracture or dislocation. Left shoulder: No acute fracture or dislocation. Mild pulmonary vascular congestion and left basilar airspace opacity. Cardiomegaly. Further evaluation with chest x-ray recommended. Left humerus: No acute osseous abnormality. Interpreted by: Alex Morataya MD Signed by: Alex Morataya MD 07/17/24 Final result Normal [facility] XR SHOULDER LEFT (MIN 2 VIEW S)on 07-17-2024 XR SHOULDER LEFT (MIN 2 VIEWS) EXAMINATION: 3 XRAY VIEWS OF THE LEFT SHOULDER; THREE XRAY VIEWS OF THE LEFT ANKLE; THREE XRAY VIEWS OF THE RIGHT ANKLE; TWO XRAY VIEWS OF THE LEFT FOOT; TWO XRAY VIEWS OF THE LEFT HUMERUS 07/17/2024 2:08 pm COMPARISON: None. HISTORY: ORDERING SYSTEM PROVIDED HISTORY: Left shoulder pain TECHNOLOGIST PROVIDED HISTORY: Left shoulder pain 69-year-old female with left shoulder pain FINDINGS: Left ankle: Ankle mortise is intact. Osseous alignment is normal. Joint spaces are well maintained. No acute fracture or gross dislocation is seen. No significant soft tissue swelling is seen. No tibiotalar joint effusion is identified. Boehler's angle is maintained. Left foot: Osseous alignment is normal. Joint spaces are well maintained. No marginal erosions are identified. No acute fracture or gross dislocation is seen. The medial and middle cuneiforms demonstrate proper alignment with the base of the 1st and 2nd metatarsals respectively. No tibiotalar joint effusion is seen. Boehler's angle is maintained. Right ankle: Ankle mortise is intact. Osseous alignment is normal. Joint spaces are well maintained. No acute fracture or gross dislocation is seen. No significant soft tissue swelling is seen. No tibiotalar joint effusion is identified. Boehler's angle is maintained. Left shoulder: Left AC and glenoid joints grossly unremarkable. Visualized left-sided ribs appear intact. Mild left basilar atelectasis. Cardiomegaly. Scattered soft tissue calcifications in the right arm. Mild pulmonary vascular congestion. No acute fracture or dislocation. Left humerus: Left humerus appears intact. Osseous alignment is normal. Joint spaces well maintained. No acute fracture or dislocation. Visualized left-sided ribs appear intact. IMPRESSION: Left ankle: No acute fracture or dislocation. Left foot: No acute fracture or dislocation Right ankle: No acute fracture or dislocation. Left shoulder: No acute fracture or dislocation. Mild pulmonary vascular congestion and left basilar airspace opacity. Cardiomegaly. Further evaluation with chest x-ray recommended. Left humerus: No acute osseous abnormality. Interpreted by: Alex Morataya MD Signed by: Alex Morataya MD 07/17/24 Final result Normal [facility] Coding Queryon 02-20-2024 Coding Query Can you please document for this patient's visit? Thanks. Jose Jensen [Transcribed on: 02/20/2024 12:55 EDT] RR Normal [facility] ED Clinical Summaryon 2023 ED Clinical Summary [facility] - Emergency Department [address] [place], [place] [id number] ED Clinical Summary PERSON INFORMATION Name: BRISEIDA RUDD Age: 68 Years Sex: FEMALE : 1955 MRN: Acct#: Visit Reason: Epistaxis; BLOODY NOSE Arrival: 02/14/2024 14:18:25 Discharge: 02/14/2024 17:09:00 LOS: 000 02:51 Check In: 02/14/2024 14:18:25 Checkout:02/14/2024 17:09:00 Address: [address] [place] [address] PCP: Christen Rose DO PROVIDER INFORMATION Provider Role Assigned Unassigned Elizabeth Nieves MANUFACTURING CONTROLLER Nurse 02/14/2024 14:52:53 Jose Jensen ED PA 02/14/2024 14:54:19 Rajat Greenfield MD ED Provider 02/14/2024 16:22:07 VITALS INFORMATION Vital Sign Triage Latest Temperature Tympanic Temperature Temporal Artery 37 DegC Pulse Rate 90 bpm 90 bpm O2 Sat 100 % 100 % Respiratory Rate 20 br/min 20 br/min Blood Pressure /99 mmHg /99 mmHg MEDICAL INFORMATION Medications Given: Medication Dose Route oxymetazoline nasal (oxymetazoline 0.05% nasal spray) 1 spray(s) Nostril-Right Allergy Information: No known allergies PHYSICIAN DOCUMENTATION Patient: BRISEIDA RUDD Age: 68 years Sex: FEMALE : 1955 Associated Diagnoses: None Author: Rajat Greenfield MD Addendum Teaching-Supervisory Addendum-Brief I participated in the following activities of this patients care: the medical history, the physical exam, medical decision making. I personally performed: supervision of the patient's care, the medical history, the physical exam, the medical decision making. The case was discussed with: the physician assistant pastry chef. Evaluation and management service: I agree with the evaluation and management decisions made in this patient's care. Results interpretation: I agree with the study interpretation in this patient's care, I agree with the documentation of the study interpretation. I also performed nasal packing Patient: BRISEIDA RUDD Age: 68 years Sex: FEMALE : 1955 Associated Diagnoses: None Author: Rajat Greenfield MD Procedure Nose bleed control procedure Time: 02/14/2024 16:00:00 . Confirmed: Patient, procedure, side, and site correct, Time-out taken prior to procedure. Consent: Patient, Emergent. Location of bleeding: Right nasal canal. Preparation: External pressure, Afrin. Description Attempt: # 1. Packing: right, anterior, posterior, nasal rocket. Post procedure bleeding: None. Patient tolerated: Well. Complications: None. Follow-up: Ear nose and throat physician, Emergency department, In 3 days, See notes . Performed by: Self. Total time: 15 minutes. DISCHARGE INFORMATION: Discharge Disposition: Home Discharge Location: Home PATIENT EDUCATION INFORMATION Instructions: Nosebleed, Adult, [id number] Follow-Up: With: Address: When: Ed Velázquez DO [facility] [place] [id number] Within 3 to 5 days DIAGNOSIS: 1:Epistaxis Patient Understands: Yes - Patient/family/caregi mihaela verbalizes understanding of instructions given Comment: [facility] ED Note - Physicianon 2023 ED Note - Physician Patient: BRISEIDA RUDD Age: 68 years Sex: FEMALE : 1955 Associated Diagnoses: None Author: Rajat Greenfield MD Addendum Teaching-Supervisory Addendum-Brief I participated in the following activities of this patients care: the medical history, the physical exam, medical decision making. I personally performed: supervision of the patient's care, the medical history, the physical exam, the medical decision making. The case was discussed with: the physician assistant pastry chef. Evaluation and management service: I agree with the evaluation and management decisions made in this patient's care. Results interpretation: I agree with the study interpretation in this patient's care, I agree with the documentation of the study interpretation. I also performed nasal packing [Electronically Signed on: 02/14/2024 16:59 EDT] Rajat Greenfield MD [Verified on: 02/14/2024 16:59 EDT] Rajat Greenfield MD [facility] ED Note - Physician Patient: BRISEIDA RUDD Age: 68 years Sex: FEMALE : 1955 Associated Diagnoses: None Author: Rajat Greenfield MD Procedure Nose bleed control procedure Time: 02/14/2024 16:00:00 . Confirmed: Patient, procedure, side, and site correct, Time-out taken prior to procedure. Consent: Patient, Emergent. Location of bleeding: Right nasal canal. Preparation: External pressure, Afrin. Description Attempt: # 1. Packing: right, anterior, posterior, nasal rocket. Post procedure bleeding: None. Patient tolerated: Well. Complications: None. Follow-up: Ear nose and throat physician, Emergency department, In 3 days, See notes . Performed by: Self. Total time: 15 minutes. [Electronically Signed on: 02/14/2024 16:59 EDT] Rajat Greenfield MD [Verified on: 02/14/2024 16:59 EDT] Rajat Greenfield MD [facility] ED Note-Nursingon 02-14-2024 ED Note-Nursing Pt ambulatory back t o ED RM 6 with friend at bedside. Pt C/O having a nose bleed that started 30 mins before arrival. Pt denies any pain. Pt stated last time I had a nose bleed was about 5 years ago Pt does take a daily aspirin. Pt denies any injury to the nose. The Rt nares is the side that is bleeding. Pt is A/Ox4. call light within reach [facility] ED Patient Summaryon 024 ED Patient Summary [facility] - Emergency Department [address] [place] [address] PATIENT DISCHARGE INSTRUCTIONS Patient Information Name: BRISEIDA RUDD Age: 68 Years Date of : 1955 Reason For Visit: Epistaxis; BLOODY NOSE Arrival Time: 02/14/2024 14:18:25 Primary Care Physician: Christen Rose DO Attending Physician: Rajat Greenfield MD Comment: Visit Diagnosis: Diagnoses This Visit Epistaxis ([id number]) Epistaxis (R04.0) The Pharmacy at [facility] is open Sunday through Sunday from 9A to 6P and Sunday and Sunday from 9A to 5P Prescription Information: If you have been given a prescription for narcotics, seek immediate medical attention if you have any difficulty breathing or any sudden status changes such as confusion and sleepiness. If you or anyone you know is experiencing suicidal thoughts, mental health, alcohol and/or drug addiction problems; contact the [facility] 14/05 Crisis Hotline -Text 4HEMG rq 509889. If you received any narcotics, sedation, or any other medication that causes drowsiness for the next 24 hours, unless otherwise directed: ? Do not drive a car. ? Do not operate machinery such as power tools, lawn mowers, drills, sewing machines, or stoves ? Avoid alcoholic beverages and drugs for allergies, nerves, or sleep ? Do not make important personal or business decisions or sign any legal documents With: Address: When: Ed Velázquez Daryl DO [address] [place], [place] [id number] Within 3 to 5 days Medication Information: The exam and treatment you received today in the [facility] Emergency Department were for an urgent problem and are not intended as complete care. It is important for you to follow up with a doctor, nurse practitioner, or physician?s assistant pastry chef for ongoing care. If your symptoms become worse or you do not improve as expected and you are unable to reach your usual health care provider, you should return to the Emergency Department, we are available 24 hours a day. For those patients who have received Radiology results, the interpretation of your X-ray as given to you by our Emergency Department physician is only a preliminary report. The Radiologist will review your films and if there is a change in the diagnosis you will be notified by phone. Please make sure you have provided a working phone number so we can reach you if necessary. In the event that you had a lab culture while you were a patient in the Emergency Department, you will be notified by phone if there is a need to change your antibiotic. Please make sure you have provided a working phone number so we can reach you if necessary. [facility] Emergency Department has provided you with a complete list of medications post discharge. Please inform your strap setter/provider of your visit and for further instruction on these medications. Any specific questions regarding your chronic medications and dosages should be discussed with your primary care physician(s) and/or pharmacist. New Medications Printed Prescriptions oxymetazoline nasal (Afrin 0.05% nasal spray) 2 spray(s) Right Nostril As Directed as needed Bleeding. As needed for nosebleeding. Refills: 0. penicillin V potassium (penicillin V potassium 500 mg oral tablet) 1 tab(s) Oral (given by mouth) 2 times a day (scheduled) for 3 Days. Refills: 0. Additional medications on your home medication list not specifically addressed. Please contact the ordering physician if you have questions about these medications. albuterol (Albuterol (Eqv-ProAir HFA) 90 mcg/inh inhalation aerosol) cetirizine (cetirizine 10 mg oral tablet) 1 tab(s) Oral (given by mouth) every day. montelukast (montelukast 10 mg oral tablet) 1 tab(s) Oral (given by mouth) once a day (in the evening). omeprazole (omeprazole 20 mg oral delayed release capsule) 1 cap(s) Oral (given by mouth) every day. phentermine (phentermine 37.5 mg oral tablet) 0.5 tab(s) Oral (given by mouth) 2 times a day (scheduled). rosuvastatin (rosuvastatin 5 mg oral tablet) 1 tab(s) Oral (given by mouth) every day. Visit Information Allergies: Substance Reaction Symptoms Type Comments No known allergies Drug Vital Signs: Vitals and Measurements this Visit (last charted value for your 02/14/2024 visit) Vital Signs This Visit Temperature Temporal Artery: 37 DegC Peripheral Pulse Rate: 90 bpm Respiratory Rate: 20 br/min Systolic Blood Pressure: 137 mmHg Diastolic Blood Pressure: 99 mmHg SpO2: 100 % Oxygen Therapy: Room air Measurements This Visit Height/Length Measured: 160.02 cm Weight Measured: 68.04 kg Weight Dosin.040 kg Body Mass Index: 26.57 kg/m2 Problems List: Problem Onset Comments No Problems found Patient Education Leave nasal packing in place for 3 to 4 days. Follow-up with your ENT and/or primary care (more content not included)... Normal [facility] XR sacrum coccyx min 2Von XR sacrum coccyx min 2V [facility] [place] [address] XRay Report Signed Patient: Briseida Rudd MR#: [id number] : 1955 Acct:[id number] Age/Sex: 68 / F ADM Date: 07/30/23 Loc: XDUC Room: Type: [facility] Attending Dr: Dorothy Chowdhury APRN Copies to: Dorothy Chowdhury APRN Ordering Provider: Dorothy Chowdhury APRN Date of Service: 07/30/23 XR/XR thoracic spine 3V*: FALL ([id number]) XR/XR sacrum coccyx min 2V: FALL THORACIC SPINE - - 3 views, sacrum/coccyx 6 views CLINICAL HISTORY: Fall down stairs this morning striking mid back and tailbone now with pain. COMPARISON: None FINDINGS: Thoracic spine: Vertebral body heights appear maintained. Mild endplate degenerative changes. Pedicles appear intact. Sacrum/coccyx: Scattered postsurgical clips are noted. Sacral foramina appear intact. SI joints demonstrate degenerative change. Coccyx appears intact. XR/XR thoracic spine 3V* IMPRESSION: NO ACUTE FINDINGS INVOLVING THE THORACIC SPINE OR SACRUM/COCCYX. Impression dictated by: Masoud Monte Jr., Yenifer07/30/2023 5:03 PM Dictation Location: RADIO-PC-15 Transcribed By: [facility] 07/30/231702 Dictated By: Masoud Monte Jr, DO 07/30/231700 Signed By: 07/30/231702 [facility] XR sacrum coccyx min 2V [facility] [employer] Other XR sacrum coccyx min 2V [facility] [employer] Other XR sacrum coccyx min 2V [address] [place] [address] [employer] Other XR sacrum coccyx [place] 2[place] [address] [employer] Other XR sacrum coccyx min 2V XRay Report [employer] Other XR sacrum coccyx min 2V Signed [employer] Other XR sacrum coccyx min 2V Patient: Briseida Rudd MR#: [id number] [employer] Other XR sacrum coccyx min 2V : 1955 Acct:[id number] [employer] Other XR sacrum coccyx min 2V Age/Sex: 68 / F ADM Date: 07/30/23 [employer] Other XR sacrum coccyx min 2V Loc: XDUCLY Room: Type: [facility] CLI [employer] Other XR sacrum coccyx min 2V Attending Dr: Dorothy Chowdhury [facility] [employer] Other XR sacrum coccyx min 2V Copies to: Dorothy Chowdhury [facility] [employer] Other XR sacrum coccyx min 2V Ordering Provider: Dorothy Chowdhury [facility] [employer] Other XR sacrum coccyx min 2V Date of Service: 07/30/23 [employer] Other XR sacrum coccyx min 2V XR/XR thoracic spine 3V*: [facility] [employer] Other XR sacrum coccyx min 2V ([id number]) XR/XR sacrum coccyx min 2V: [facility] [employer] Other XR sacrum coccyx min 2V THORACIC SPINE - - 3 views, sacrum/coccyx 6 views [employer] Other XR sacrum coccyx min 2V CLINICAL HISTORY: Fall down stairs this morning striking mid back and tailbone now with pain. [employer] Other XR sacrum coccyx min 2V COMPARISON: None [employer] Other XR sacrum coccyx min 2V FINDINGS: [employer] Other XR sacrum coccyx min 2V Thoracic spine: Vertebral body heights appear maintained. Mild endplate degenerative changes. [employer] Other XR sacrum coccyx min 2V Pedicles appear intact. [employer] Other XR sacrum coccyx min 2V Sacrum/coccyx: Scattered postsurgical clips are noted. Sacral foramina appear intact. SI joints [employer] Other XR sacrum coccyx min 2V demonstrate degenerative change. Coccyx appears intact. [employer] Other XR sacrum coccyx min 2V XR/XR thoracic spine 3V* [employer] Other XR sacrum coccyx min 2V IMPRESSION: [employer] Other XR sacrum coccyx min 2V NO ACUTE FINDINGS INVOLVING THE THORACIC SPINE OR SACRUM/COCCYX. [employer] Other XR sacrum coccyx min 2V Impression dictated by: Masoud Monte Jr., D.O.07/30/2023 5:03 PM [employer] Other XR sacrum coccyx min 2V Dictation Location: [facility] [employer] Other XR sacrum coccyx min 2V Transcribed By: [facility] 07/30/23 [facility] [employer] Other XR sacrum coccyx min 2V Dictated By: Masoud Monte Jr, DO 07/30/23 [facility] [employer] Other XR sacrum coccyx min 2V Signed By: [employer] Other XR sacrum coccyx min 2V 07/30/23 [facility] [employer] Other ANTI DNAon 12-12-2021 ANTI DNA <1:10 Normal <1:10 [facility] Comment on above: Performed By: #### 1 2044, [id number] #### [facility] [address] [place] [address] ANTI-ENAon 12-12-2021 ANTI SM Negative Normal NEG,NEGATIVE ,Neg [facility] Comment on above: Performed By: #### 1 686, [id number] #### [facility] [address] [place] [address] ANTI SM/ANTIRNP Negative Normal NEG,NEGATIVE ,Neg [facility] Comment on above: Performed By: #### 1 0097, [id number] #### [facility] [address] C REACTIVE PROTEINon 022 CRP [Mass/Vol] 3.3 mg/L Normal 0.0-7.0 [facility] Comment on above: Performed By: #### 1 0220, [id number], [id number] ####[facility] [address] COMPLEMENT 3on 12-12-2021 COMPLEMENT 3 111 mg/dL Normal 79-152 The [facility] Comment on above: Performed By: #### 1 0, 09437, [id number] ####[facility] COMPLEMENT 4on 12-12-2021 COMPLEMENT 4 14 mg/dL Low 16-38 [facility] Comment on above: Performed By: #### 1 0220, 40712, 68939 ####[facility] [place]IN[place] [address]md 12-12-2021 CYCLIC CIT PEP 2 Units Normal 0-19 [facility] Comment on above: Result Comment: INTE RPRETIVE INFORMATION: Cyclic Citrullinated Peptide Antibody, IgG 19 Units or less ................... Negative 20-39 Units ........................ Weak Positive 40-59 Units ........................ Moderate Positive 60 Units or greater ................ Strong Positive Anti-cyclic citrullinated peptide (anti-CCP), IgG antibodies are present in about 69-83 percent of patients with rheumatoid arthritis (RA) and have specificities of 93-95 percent. These autoantibodies may be present in the preclinical phase of disease, are associated with future RA development, and may predict radiographic joint destruction. Patients with weak positive results should be monitored and testing repeated. Performed By: [facility] [address] [place] [address] Penetration Tester: Erika Jaffe MD FOOT LEFT 3 [facility] 12-12-2021 FOOT LEFT 3 [facility] Department of Radiology [address] [place] [phone] Patient Name: BRISEIDA RUDD : 1955 Sex: F Age: Race: Other Pt. Location: [facility] Patient Status: D Ordered Date: 12/12/2021 11:30:00 AM Completed Date: 12/12/2021 11:49 AM Requesting Provider: ALLY JONES Attending Provider: GUILHERME JARA Report Copy To: Signs & Symptoms: M25.50 Pain in unspecified joint I10 History: [place] Comments: Evaluate Exam: FOOT LEFT 3 [facility] FOOT LEFT 3 [facility] 12/12/2021 11:49 AM CLINICAL INDICATIONS: M25.50 Pain in unspecified joint I10 TECHNOLOGIST COMMENTS: pt states having bilateral hand, bilateral feet, and lower back pain. no known trauma. QUESTION FOR THE RADIOLOGIST: Evaluate PROTOCOL: AP,Lateral and Oblique views were obtained. COMPARISON: None FINDINGS: Anatomic alignment.. No fracture, healing fracture callus formation is noted. No chondrocalcinosis. No erosions or osteophyte. IMPRESSION: No acute process Electronically signed: Amy Martínez. Transcribed by: [email or web address], User Resident: Electronically Signed by: AMY MARTÍNEZ @ 12/13/2021 08:49 AM Normal [facility] Comment on above: Order Comment: Evalu ate FOOT RIGHT 3 [facility] FOOT RIGHT 3 [facility] Department of Radiology [address] [place] [phone] Patient Name: BRISEIDA RUDD : 1955 Sex: F Age: Race: Other Pt. Location: [facility] Patient Status: D Ordered Date: 12/12/2021 11:30:00 AM Completed Date: 12/12/2021 11:49 AM Requesting Provider: ALLY JONES Attending Provider: GUILHERME JARA Report Copy To: Signs & Symptoms: M25.50 Pain in unspecified joint I10 History: [place] Comments: Evaluate Exam: FOOT RIGHT 3 [facility] FOOT RIGHT 3 S 12/12/2021 11:49 AM CLINICAL INDICATIONS: M25.50 Pain in unspecified joint I10 TECHNOLOGIST COMMENTS: pt states having bilateral hand, bilateral feet, and lower back pain. no known trauma. QUESTION FOR THE RADIOLOGIST: Evaluate PROTOCOL: AP,Lateral and Oblique views were obtained. COMPARISON: None FINDINGS: Anatomic alignment. No evidence of fracture, healing fracture callus formation. No chondrocalcinosis. No erosions. No soft tissue tophi. IMPRESSION: No acute process Electronically signed: Amy Martínez. Transcribed by: [email or web address], User Resident: Electronically Signed by: AMY MARTÍNEZ @ 12/13/2021 08:50 AM Normal [facility] Comment on above: Order Comment: Evalu ate HAND LEFT 3 VWSon 12-12-2021 HAND LEFT 3 S [facility] Department of Radiology [address] [place] [phone] Patient Name: BRISEIDA RUDD : 1955 Sex: F Age: Race: Other Pt. Location: [facility] Patient Status: D Ordered Date: 12/12/2021 11:30:00 AM Completed Date: 12/12/2021 11:49 AM Requesting Provider: ALLY JONES Attending Provider: GUILHERME JARA Report Copy To: Signs & Symptoms: M25.50 Pain in unspecified joint I10 History: [place] Comments: Evaluate Exam: HAND LEFT 3 S HAND LEFT 3 S 12/12/2021 11:49 AM CLINICAL INDICATIONS: M25.50 Pain in unspecified joint I10 TECHNOLOGIST COMMENTS: pt states having bilateral hand, bilateral feet, and lower back pain. no known trauma. QUESTION FOR THE RADIOLOGIST: Evaluate PROTOCOL: AP,Lateral and Oblique views were obtained. COMPARISON: None FINDINGS: Anatomic alignment. Hyperextension of the thumb is noted. There is some subluxation at the first carpometacarpal articulation noted. Joint laxity and capsular laxity is observed. No fracture, healing fracture or callus formation. No erosions or chondrocalcinosis IMPRESSION: No acute process Electronically signed: Amy Martínez. Transcribed by: [email or web address], User Resident: Electronically Signed by: AMY MARTÍNEZ @ 12/13/2021 08:48 AM Normal [facility] Comment on above: Order Comment: Evalu ate HAND RIGHT 3 [facility] HAND RIGHT 3 [facility] Department of Radiology [address] [place] [phone] Patient Name: BRISEIDA RUDD : 1955 Sex: F Age: Race: Other Pt. Location: [facility] Patient Status: D Ordered Date: 12/12/2021 11:30:00 AM Completed Date: 12/12/2021 11:49 AM Requesting Provider: ALLY JONES Attending Provider: GUILHERME JARA Report Copy To: Signs & Symptoms: M25.50 Pain in unspecified joint I10 History: [place] Comments: Evaluate Exam: HAND RIGHT 3 [facility] HAND RIGHT 3 [facility] 12/12/2021 11:49 AM CLINICAL INDICATIONS: M25.50 Pain in unspecified joint I10 TECHNOLOGIST COMMENTS: pt states having bilateral hand, bilateral feet, and lower back pain. no known trauma. QUESTION FOR THE RADIOLOGIST: Evaluate PROTOCOL: AP,Lateral and Oblique views were obtained. COMPARISON: None FINDINGS: Anatomic alignment. No fracture, healing fracture or acute process. No chondrocalcinosis. No osteophytes or erosions. Bone mineralization does appear to be less than expected and may represent osteopenia. Consider DEXA imaging if felt appropriate IMPRESSION: No acute osseous process Electronically signed: Amy Martínez. Transcribed by: [email or web address], User Resident: Electronically Signed by: AMY MARTÍNEZ @ 12/13/2021 08:46 AM Normal [facility] Comment on above: Order Comment: Evalu ate S-I JOINTS MIN 4 VWSon 12-12 S-I JOINTS MIN 4 VWS [facility] Department of Radiology [address] [place] [phone] Patient Name: BRISEIDA RUDD : 1955 Sex: F Age: Race: Other Pt. Location: [facility] Patient Status: D Ordered Date: 12/12/2021 11:30:00 AM Completed Date: 12/12/2021 11:49 AM Requesting Provider: ALLY JONES Attending Provider: GUILHERME JARA Report Copy To: Signs & Symptoms: M25.50 Pain in unspecified joint I10 History: [place] Comments: Evaluate Exam: S-I JOINTS MIN 4 VWS S-I JOINTS MIN 4 VWS 12/12/2021 11:49 AM CLINICAL INDICATIONS: M25.50 Pain in unspecified joint I10 TECHNOLOGIST COMMENTS: pt states having bilateral hand, bilateral feet, and lower back pain. no known trauma. QUESTION FOR THE RADIOLOGIST: Evaluate PROTOCOL: PA,AP and Bilateral Obliques were obtained. COMPARISON: None FINDINGS: SI joints are patent. The no closure. No erosions. No destructive process. Surgical clips project over portion of the pelvic ring. Please correlate with prior operative note. L5 facet arthrosis is noted IMPRESSION: No acute osseous process Electronically signed: Amy Martínez. Transcribed by: [email or web address], User Resident: Electronically Signed by: AMY MARTÍNEZ @ 12/13/2021 08:51 AM Normal [facility] Comment on above: Order Comment: Evalu ate SCL 70 20504ry 12-12-2021 SCLERODERMA AB (SCL-70) 0 AU/mL Normal 0-40 [facility] Comment on above: Result Comment: INTE RPRETIVE INFORMATION: Scleroderma (Scl-70) (KRISTIE) Ab, IgG 29 AU/mL or Less ............. Negative 30 - 40 AU/mL ................ Equivocal 41 AU/mL or Greater .......... Positive The presence of Scl-70 antibodies (also referred to as topoisomerase I, kulwinder-I or QUOC) is considered diagnostic for systemic sclerosis (SSc). Scl-70 antibodies alone are detected in about 20 percent of SSc patients and are associated with the diffuse form of the disease, which may include specific organ involvement and poor prognosis. Scl-70 antibodies have also been reported in a varying percentage of patients with systemic lupus erythematosus (SLE). Scl-70 (kulwinder-1) is a DNA binding protein and anti-DNA/DNA complexes in the sera of SLE patients may bind to kulwinder-I, leading to a false-positive result. The presence of Scl-70 antibody in sera may also be due to contamination of recombinant Scl-70 with DNA derived from cellular material used in immunoassays. Strong clinical correlation is recommended if both Scl-70 and dsDNA antibodies are detected. Negative results do not necessarily rule out the presence of SSc. If clinical suspicion remains, consider further testing for centromere, RNA polymerase III and U3-TREKKING GUIDE, PM/Scl, or Th/To antibodies. Performed By: [facility] [address] [place] [address] Penetration Tester: Erika Jaffe MD SEDIMENTATION RATEon 022 SED RATE 10 mm/hr Normal 0-20 [facility] Comment on above: Performed By: #### 5 [id number] ####[facility] [place] [address], [facility] URINALYSISon 12-12-2021 Appearance (U) SL CLOUDY Abnormal CLEAR [facility] Comment on above: Performed By: #### 1 0008 #### [facility] [address] [place] [address], [place] Bilirubin Ql (U) Negative Normal NEGATIVE The [facility] Comment on above: Performed By: #### 1 0008 #### [facility] [address] [place] [address], [place] Color (U) YELLOW Normal YELLOW [facility] Comment on above: Performed By: #### 1 0008 #### [facility] [address] [place] [address], [place] EPIS MANY Abnormal FEW,OCC,NONE SEEN [facility] Comment on above: Performed By: #### 1 0008 #### [facility] [address] [place] [address], [place] Glucose Ql (U) Negative Normal NEGATIVE [facility] Comment on above: Performed By: #### 1 0008 #### [facility] [address] [place] [address], [place] Hemoglobin Ql (U) Negative Normal NEGATIVE [facility] Comment on above: Performed By: #### 1 0008 #### [facility] [address] [place] [address], [place] KETONE Negative Normal NEGATIVE [facility] Comment on above: Performed By: #### 1 0008 #### [facility] [address] [place] [address], [place] LEUK BRISEIDA MODERATE Abnormal NEGATIVE [facility] Comment on above: Performed By: #### 1 0008 #### [facility] [address] MUCUS THREADS OCC Abnormal NONE SEEN The [facility] Comment on above: Performed By: #### 1 0008 #### [facility] [address] Nitrite Ql (U) Negative Normal NEGATIVE [facility] Comment on above: Performed By: #### 1 0008 #### [facility] [address] pH (U) 7.0 [pH] Normal 5.0-8.0 [facility] Comment on above: Performed By: #### 1 0008 #### [facility] [address] Protein Ql (U) Negative Normal NEGATIVE [facility] Comment on above: Performed By: #### 1 0008 #### [facility] [address] RBC 0-2 Abnormal NONE SEEN [facility] Comment on above: Performed By: #### 1 0008 #### [facility] [address] [address] SPEC GRAV 1.012 Low 1.015-1.020 [facility] Comment on above: Performed By: #### 1 0008 #### [facility] [address] WBC UA 3-5 Abnormal NONE SEEN [facility] Comment on above: Performed By: #### 1 0008 #### [facility] [address] COVID Quick Testingon 2020 Result Negative [employer] Other ANAon 05-05-2021 MARTIN PATTERN SPECKLED Normal [facility] Comment on above: Performed By: #### 1 [id number], [id number] #### [facility] [address] [place] [address], [facility] MARTIN SCREEN 1:160 Abnormal <1:40,1:40 [facility] Comment on above: Performed By: #### 1 0196, [id number] #### [facility] [address] [place] [address], [facility] SJOGRENS ANTIBODIESon 2020 SS-A Eqv Abnormal NEG,NEGATIVE ,Neg [facility] Comment on above: Performed By: #### 1 0196, [id number] #### [facility] [address] [place] [address], [facility] SS-B Abnormal NEG,NEGATIVE ,Neg [facility] Comment on above: Result Comment: Resu lt changed by OCREEGER on 05/13/2021 12:20. The previous value was Neg. RESULTS CHECKED IN DUPLICATE Performed By: #### 1 [id number], [id number] #### [facility] [address] [place], [place] [id number] [place] [address] Vital Signs Date Time Vital Sign Value Performing Clinician Facility 07-21-2024 10:56-0400 Body temperature 97.11 [degF] Nelson Doyle MD Work Phone: [facility] 07-21-2024 10:56-0400 Diastolic blood pressure 78 mm[Hg] Nelson Doyle MD Work Phone: [facility] 07-21-2024 10:56-0400 Heart rate 89 /min Nelson Doyle MD Work Phone: [facility] 07-21-2024 10:56-0400 Respiratory rate 23 /min Nelson Doyle MD Work Phone: [facility] 07-21-2024 10:56-0400 SaO2% (BldA) [Mass fraction] 97 % Nelson Doyle MD Work Phone: [facility] 07-21-2024 10:56-0400 Systolic blood pressure 127 mm[Hg] Nelson Doyle MD Work Phone: [facility] [employer] [facility] 07-17-2024 18:44-0400 Body height 160 cm Nelson Doyle MD [facility] Phone: [facility] 07-17-2024 18:44-0400 Body mass index (BMI) [Ratio] 26.04 kg/m2 Nelson Doyle MD Work Phone: [facility] [employer] [facility] 07-17-2024 18:44-0400 Body weight 66.68 kg Nelson Doyle MD Work Phone: [facility] [employer] [facility] 07-17-2024 14:09-0400 Body temperature 37.0 Nelson Doyle MD Work Phone: [facility] 07-17-2024 12:43-0400 Diastolic blood pressure 98 mm[Hg] [facility] 07-17-2024 12:43-0400 Heart rate 110 /min [facility] [employer] 07-17-2024 12:43-0400 SaO2% (BldA) [Mass fraction] 94 % [facility] 07-17-2024 12:43-0400 Systolic blood pressure 142 mm[Hg] [facility] 07-17-2024 12:41-0400 Respiratory rate 20 /min [facility] [email or web address] 07-30-2023 15:50-0400 Body height 160.02 cm Dorothy Chowdhury Other [employer] Other 07-30-2023 15:50-0400 Body mass index (BMI) [Ratio] 27.1 kg/m2 Dorothy Chowdhury Other [employer] Other 07-30-2023 15:50-0400 Body temperature 97.8 [degF] Dorothy Chowdhury Other [employer] Other 07-30-2023 15:50-0400 Body weight 69.4 kg Dorothy Chowdhury Other [employer] Other 07-30-2023 15:50-0400 Diastolic blood pressure 74 mm[Hg] Dorothy Luciana Other [employer] Other 07-30-2023 15:50-0400 Respiratory rate 18 /min Dorothy Luciana Other [employer] Other 07-30-2023 15:50-0400 SaO2% (BldA) [Mass fraction] 96 % Dorothy Luciana Other [employer] Other 07-30-2023 15:50-0400 Systolic blood pressure 120 mm[Hg] Dorothy Luciana Other [employer] Other Encounters Encounter Date Encounter Type Care Provider Facility Start: 02-25-2025 End: 02-25-2025 ambulatory Franko BARBER Facility:[facility] Start: 02-23-2025 ambulatory Franko BARBER Facility:[facility] Start: 02-17-2025 ambulatory Franko FARRL Facility:[facility] Start: 01-07-2025 End: 01-07-2025 ambulatory [facility] Start: 01-01-2025 ambulatory [facility] Start: 12-25-2024 End: 12-25-2024 Telephone encounter Nati Child MD Work Phone: [facility] Comment on above: Release Of Medical R ecords Start: 12-18-2024 ambulatory [facility] Start: 09-22-2024 End: 10-02-2024 Telephone encounter Jose Daniel Pantoja [employer] [facility] Comment on above: re: More PT? (Contac ramakrishna to check if more PT is needed; she cx her last PT on 09/17. She said she'd like to wait till after fu w/ Dr. Vences on 09/29; she said she'd contact w/ recommendation.) Start: 09-15-2024 End: 09-15-2024 Bamboo flowsheet Jose Daniel Pantoja [employer] [facility] Start: 09-15-2024 End: 09-15-2024 Bamboo flowsheet Jose Daniel Pantoja [employer] [facility] Start: 09-15-2024 End: 09-15-2024 ambulatory Jose Daniel Pantoja [employer] [facility] Comment on above: Pain, neck (Primary Dx) Start: 09-12-2024 End: 09-12-2024 Bamboo flowsheet Jose Daniel Pantoja [employer] [facility] Start: 09-12-2024 End: 09-12-2024 Bamboo flowsheet Jose Daniel Pantoja [employer] [facility] Start: 09-12-2024 End: 09-12-2024 ambulatory Jose Daniel Pantoja [employer] [facility] Comment on above: Pain, neck (Primary Dx) Start: 09-08-2024 End: 09-08-2024 Bamboo flowsheet Jose Daniel Pantoja [employer] [facility] Start: 09-08-2024 End: 09-08-2024 Bamboo flowsheet Jose Daniel Pantoja [employer] [facility] Start: 09-08-2024 End: 09-08-2024 ambulatory Jose Daniel Pantoja [employer] [facility] Comment on above: Pain, neck (Primary Dx) Start: 09-04-2024 End: 09-04-2024 Bamboo flowsheet Ti Wells PT Work Phone: [facility] Start: 09-04-2024 End: 09-04-2024 Bamboo flowsheet Ti Wells PT Work Phone: [facility] Start: 09-04-2024 End: 09-04-2024 ambulatory Ti Wells PT Work Phone: [facility] Comment on above: Pain, neck (Primary Dx) Start: 08-27-2024 End: 08-29-2024 Subsequent hospital visit by physician [facility] Comment on above: Cervical pain Start: 07-17-2024 End: 07-21-2024 Evaluation and management of inpatient NELSON DOYLE [facility] Comment on above: Subarachnoid hemorrh age (HCC) (Primary Dx); Closed fracture of sternum, unspecified portion of sternum, initial encounter Start: 07-17-2024 End: 07-17-2024 Emergency department patient visit [facility] ED Comment on above: Closed head injury w ith brief loss of consciousness (Primary Dx); Fall, initial encounter Start: 02-18-2024 End: 02-18-2024 ambulatory MARISOL BACH Not Available Start: 02-14-2024 End: 02-14-2024 Emergency department patient visit [facility] Facility:[facility] Start: 07-30-2023 End: 07-30-2023 ambulatory Dorothy Chowdhury Facility:[facility] Start: 07-30-2023 End: 07-30-2023 Patient encounter procedure TARAN Chowdhury Work Phone: [facility] Work Phone: Start: 07-30-2023 End: 07-30-2023 ambulatory TARAN Chowdhury Work Phone: [facility] Work Phone: Start: 07-30-2023 Office outpatient vi sit 15 minutes Dorothy Chowdhury [facility] Start: 05-22-2022 End: 05-22-2022 Lab Drop off Alla Nelson [facility] Start: 08-10-2021 Office outpatient vi sit 5 minutes Violeta Simpson [facility] Procedures Date Procedure Procedure Detail Performing Clinician Start: 07-20-2024 Ecg routine ecg w/le ast 12 lds w/i&r Seema Rosa DO Work Phone: Start: 07-20-2024 Assay of troponin quantitative Seema Rosa DO Work Phone: Start: 07-19-2024 Ct head/brain w/o co ntrast material Flores Taylor DO Work Phone: Start: 07-19-2024 Urnls dip stick/tabl et reagent auto microscopy Seema Samuel Moe DO Work Phone: Start: 07-18-2024 Assay of troponin quantitative Nelson Doyle MD Work Phone: Start: 07-18-2024 Radex elbow complete minimum 3 views Silvia Aquino DO Work Phone: Start: 07-17-2024 Ct head/brain w/o co ntrast material Tika Gee SECURITY INVESTIGATOR - [employer] Work Phone: Start: 07-17-2024 Ecg routine ecg w/le ast 12 lds w/i&r Tika Billy Gee SECURITY INVESTIGATOR - [employer] Work Phone: Start: 07-17-2024 Radex humerus minimu m 2 views aRh Zaldivar Tram DO Work Phone: Start: 07-17-2024 Ct cervical spine w/ o contrast material Rah P Tram DO Work Phone: Start: 07-17-2024 Ct head/brain w/o co ntrast material Rah P Tram DO Work Phone: Start: 07-17-2024 Ct thorax w/contrast material Rah P Tram DO Work Phone: Start: 07-17-2024 Blood typing serologic abo Nelson Doyle MD Work Phone: Start: 07-17-2024 Creatine kinase total A werner Doyle MD Work Phone: Start: 07-17-2024 TRAUMA PANEL Nelson ray MD Work Phone: Start: 07-17-2024 TROP/MYOGLOBIN Nelson Doyle MD Work Phone: Start: 07-16-2024 Mammography Ti ndiaye PT Work Phone: Start: 07-30-2023 Radiography of sacrococcygeal spine SECURITY INVESTIGATOR Dorothy Chowdhury Work Phone: Start: 07-30-2023 Radiography of thora cic spine SECURITY INVESTIGATOR Dorothy Chowdhury Work Phone: Start: 12-15-2021 Colonoscopy Ti Calhoun gingersamuel PT Work Phone: Start: 11-07-2019 Lipid 1996 panel - S ronen or Plasma Nati Child MD Work Phone: Plan of Treatment Date Care Activity Detail Author Start: 12-15-2031 Screening for malign ant neoplasm of colon [facility] Start: 2031 RSV Vaccine (1 - 1-d ose 75+ series) RSV Vaccine (1 - 1-dose 75+ series) [facility] Start: 11-04-2028 DTaP/Tdap/Td vaccine (2 - Td or Tdap) DTaP/Tdap/Td vaccine (2 - Td or Tdap) [facility] Start: 07-17-2027 Diabetes Screening Diabetes Screenin g [facility] Start: 09-02-2026 Pneumococcal 65+ yea rs Vaccine (3 of 3 - PPSV23 or PCV20) Pneumococcal 65+ years Vaccine (3 of 3 - PPSV23 or PCV20) [facility] Start: 09-02-2026 Pneumococcal Vaccine : 65+ Years (3 of 3 - PPSV23 or PCV20) Pneumococcal Vaccine: 65+ Years (3 of 3 - PPSV23 or PCV20) [facility] Start: 07-16-2026 Screening for malign ant neoplasm of breast Breast cancer screen [facility] Start: 07-17-2025 Hemoglobin A1c measurement A1C test (Diabetic or Prediabetic) [facility] Start: 07-16-2025 Screening for malign ant neoplasm of breast [facility] Start: 11-07-2024 Lipid panel Lipid Screening [facility] Start: 10-22-2024 Advance Directive Discussion Advance Directive Discussion [facility] Start: 09-29-2024 End: 09-29-2024 Patient encounter procedure 09/29/2024 10:30 AM EST Office Visit [facility] [place], [facility] [address] [facility] [address], [address] [place] [address] Ezio Begum MD [address] [facility] [place] [address] Head/neck-follow up after Head CT @ [facility] pt to bring disc [facility] - [facility] [place], [facility] Comment on above: Head/neck-follow up after Head CT @ [place] pt to bring disc Start: 09-17-2024 End: 09-17-2024 ambulatory 09/17/2024 7:00 AM EST Treatment [facility] [address] [place] [id number] Jose Daniel Pantoja, [employer] [facility] Start: 09-15-2024 End: 09-15-2024 ambulatory [facility] Comment on above: Arrived Start: 09-12-2024 End: 09-12-2024 ambulatory [facility] Comment on above: Arrived Start: 06-22-2024 COVID-19 Vaccine ( season) COVID-19 Vaccine ( season) [facility] [employer] Start: 06-22-2024 Covid-19 Vaccine ( season) Covid-19 Vaccine ( season) [facility] Start: 06-22-2024 Influenza vaccination Influenza Vacc ine (#1) [facility] Start: 05-22-2024 Influenza vaccination Flu vaccine (# 1) [facility] Start: 10-22-2023 Annual Wellness Visi t (Medicare Advantage) Annual Wellness Visit (Medicare Advantage) [facility] Start: 2016 Respiratory Syncytia l Virus (RSV) or age 60 yrs+ (1 - 1-dose 60+ series) Respiratory Syncytial Virus (RSV) or age 60 yrs+ (1 - 1-dose 60+ series) [facility] Start: 02-19-2009 Pneumococcal Vaccine : 50+ (2 of 2 - PCV) Pneumococcal Vaccine: 50+ (2 of 2 - PCV) [facility] Start: 2006 Shingrix Vaccine (1 of 2) Shingrix Vaccine (1 of 2) [facility] Start: 2001 Screening for malign ant neoplasm of [facility] Start: 1996 Lipid panel Lipids [facility] Start: 1975 Urine microalbumin profile DTaP,Tdap,Td Vaccine (1 - Tdap) [facility] Start: 1974 Anxiety Screening Anxiety Screening [facility] Start: 1974 Depression Screening Depression Scre ening [facility] Start: 1974 Hepatitis C screening B on [employer] Start: 1968 Depression Screen [facility] Start: 1956 Screening for malign ant neoplasm of colon [facility] Acapella Acapella Respira tory Care Routine Daily until discontinued starting 07/19/2024 [facility] [employer] Work Phone: Comment on above: Daily until disconti nued starting 07/19/2024 EKG 12 lead EKG 12 lead ECG Routine 07/17/2024 5:37 PM EDT [facility] 12 Lead EKG 12 Lead ECG Routine 07/20/2024 4:08 PM EDT [facility] [employer] Work Phone: RT Communication Order RT Commun ication Order Respiratory Care Routine Daily until discontinued starting 07/18/2024 [facility] [employer] Comment on above: Daily until disconti nued starting 07/18/2024 End: 08-27-2024 Spirometry panel Incentive spirometry Respiratory Care Routine Every 1hr while awake for 41 Days starting 07/17/2024 until 08/27/2024 [facility] [employer] Comment on above: Every 1hr while awak e for 41 Days starting 07/17/2024 until 08/27/2024 End: 08-27-2024 XR Cervical spine Views W flexion and W extension [facility] [employer] Comment on above: 1 Occurrences starti ng 08/27/2024 until 08/27/2024 Immunizations Immunization Date Immunization Notes Care Provider Sabina latham 09-02-2021 influenza virus vacc ine, unspecified formulation Ti Wells PT Work Phone: [facility] 02-20-2008 pneumococcal polysaccharide vaccine, 23 valmark Child MD Work Phone: [facility] Payers Date Payer Category Payer Medicare [id number] 2023 Self-pay 2023 Medicaid [id number] 2023 Medicaid [id number] 2023 Medicare [id number] 2019 Private Health Insurance [employer] [id number] 1956 Unknown [id number] 1956 Unknown [id number] [id number] 1956 Unknown [id number] 1956 Unknown [id number] [id number] 1956 Unknown [id number] [id number] 1956 Unknown [id number] [id number] 1956 Unknown [id number] 1956 Unknown [id number] Medicare [id number] Medicare [id number] Unknown [id number] Social History Date Type Detail Facility Start: 04-22-2018 End: 07-17-2024 Sex Assigned At [facility] [employer] Other Tobacco smoking status No Smokin g Status Entered [facility] Start: 1955 Sex Assigned At Female [facility] Start: 02-10-2015 End: 07-17-2024 Tobacco smoking status MEIS Never smoked tobacco [employer] Start: 02-10-2015 End: 07-17-2024 Tobacco use and exposure Smokeless tobacco non-user [employer] Start: 08-27-2024 Alcoholic beverage intake Current drinker of alcohol (finding) [employer] Start: 04-22-2018 End: 07-17-2024 History of Social function [employer] Has the [employer] or [employer] threatened to shut off services in your home in past 12Mo Patient declined [employer] How often to you hav e a drink containing alcohol? Never [employer] Start: 08-27-2024 Alcohol Comment occasional [employer] Start: 1955 Sex assigned at Not on file [employer] Start: 02-18-2024 Alcoholic beverage intake Ex-drinker (finding) [facility] Tobacco smoking stat [facility] Tobacco smoking consumption unknown [employer] Start: 06-09-2022 Alcoholic beverage intake Current non-drinker of alcohol (finding) [facility] Functional Status Date Assessment Result Facility 05-31-2016 Are you deaf, or do you have serious difficulty hearing No 05/31/2016 2:14 PM Tyson Avilez RN No [facility] 05-31-2016 Are you blind, or do you have serious difficulty seeing, even when wearing glasses No 05/31/2016 2:14 PM Tyson Avilez RN No [facility] 05-31-2016 Do you have serious difficulty walking or climbing stairs No 05/31/2016 2:14 PM EDT Tyson Kaur RN No [facility] 05-31-2016 Do you have difficul ty dressing or bathing No 05/31/2016 2:14 PM EDT Tyson Kaur, MARION No [facility] 05-31-2016 Because of a physica l, mental, or emotional condition, do you have difficulty doing errands alone such as visiting a physician's office or shopping No 05/31/2016 2:14 PM EDTyson Cavanaugh RN No [facility] Mental Status Date Assessment Result Facility 05-31-2016 Because of a physica l, mental, or emotional condition, do you have serious difficulty concentrating, remembering, or making decisions No 05/31/2016 2:14 PM EDTyson Cavanaugh RN No [facility] Clinical Notes 08-10-2021 to 02-25-2025 Telephone Encounter - Brielle Jacob - 12/25/2024 10:06 AM ESTTelephone Encounter - Brielle Jacob - 12/25/2024 10:06 AM ESTTelephone Encounter - Tika Mansfield - 10/02/2024 4:18 PM EST Note Date & Type Note Facility 02-25-2025 Note General Surgery Offi ce/Clinic Note Chief Complaint consultation for positive Cologuard HPI Staff 69 year old female presents on consultation from Dr. Martin for positive Cologuard. Denies abdominal or rectal pain. No rectal bleeding or change in bowel habits. Denies nasuea or vomiting. No unexplained weight loss. Last colonoscopy completed 11/2021-normal. Brother with history of colon cancer, diagnosed age early 60's. History of Present Illness 69 yo female with h/o hyperlipidemia, asthma, GERD, subarachnoid hemorrhage, depression, migraines, referred for positive Cologuard; patient denies change in bms or blood in stools, no abd complaints; abdominal operations significant for JUANA, last colonoscopy 11/2021, wnl; on baby asa daily, no NSAID use; no tobacco use; fmhx of colon cancer in patient's brother, dx in his 60's, no fmhx of IBD. Review of Systems PHQ Score Initial Depression Screen Score: 0 SCORE ROS - Provider Constitutional: no fever, no sweats, no weight loss. Eyes: yes glasses, no blurred vision, no visual loss. ENMT: no dentures, no hoarseness, no swallowing difficulties, no hearing loss, no ear infection(s), no nose bleeds. Cardiovascular: normal blood pressure, no chest pain, regular heartbeat, no heart murmur. Respiratory: no shortness of breath, no cough, no asthma, no wheezing. Gastrointestinal: no nausea, no vomiting, no diarrhea, no constipation, no blood in stool, no change in bowel habits, no abdominal pain, no hepatitis. Genitourinary: no kidney stones, no urine infection, no dysuria. Musculoskeletal: no pain, no weakness. Skin: no changing moles, no rash, no skin lumps. Neurologic: no seizures, no epilepsy, no headache. Psychiatric: no emotional or psychiatric problem. Heme/Lymph: no bleeding problems, no anemia, no blood clots, no transfusions. Allergy/Immunologic: no swollen lymph nodes/glands, no IV drug abuse. Other: Additional ROS info: Except as noted in the above Review of Systems and in the History of Present Illness, all other systems have been reviewed and are negative or noncontributory. Physical Exam Vitals & Measurements HR: 76(Peripheral) RR: 16 BP: 138/92 HT: 157.4 cm HT: 62 in WT: 66.8 kg WT: 147.269 lb BMI: 26.96 HEENT: normal conjunctiva, sclera clear, no scleral icterus, EOM intact, PERRLA, oral mucosa moist without lesions. Neck: trachea midline, no mass, symmetric, no thyromegaly or nodules, no adenopathy Respiratory: lungs CTA, respirations non labored. Cardiovascular: regular rate and rhythm, no murmur, no pedal edema or varicosities. Gastrointestinal: obese, soft, non distended, no tenderness, no masses, no palpable hernias, diastasis recti no, no hepatosplenomegaly; normal bs Lymphatic: no cervical adenopathy, no supraclavicular adenopathy. Musculoskeletal: normal gait, digits and nails without infection, nodes, cyanosis, clubbing. Skin: no rashes, no lesions, no ulcers, no subcutaneous nodules, induration. Psychiatric/Neuro: oriented to time, place, person, judgement normal, affect appropriate for age, insight intact, no focal deficits. Tests: labs reviewed, review of old records completed , Discussed surgical options, risks, and possible complications with patient. Assessment/Plan 1. Positive colorectal cancer screening using Cologuard test (R19.5: Other fecal abnormalities) plan colonoscopy under anesthesia, informed consent obtained. 2. Family history of colon cancer (Z80.0: Family history of malignant neoplasm of digestive organs) see # 1 Follow-up No qualifying data available Problem List/Past Medical History Ongoing Allergic rhinitis Asthma BMI 26.0-26.9,adult Depression Family history of colon cancer GERD (gastroesophageal reflux disease) History of subarachnoid hemorrhage Hyperlipidemia Intracranial aneurysm Migraines Overweight Positive colorectal cancer screening using Cologuard test Historical Mediastinal mass Procedure/Surgical History Colonoscopy (11/2021), Lens implantation, JUANA - Total abdominal hysterectomy. Medications Adipex-P 37.5 mg Tab, 37.5 mg= 1 tab(s), Oral, Daily Albuterol (Eqv-ProAir HFA), 2 puff(s), Inhalation, BID aspirin 81 mg Oral EC Tab, 81 mg= 1 tab(s), Oral, Daily baclofen 10 mg Tab, 10 mg= 1 tab(s), Oral, TID, PRN cetirizine 10 mg Tab, 10 mg= 1 tab(s), Oral, Daily Crestor 5 mg Tab, 5 mg= 1 tab(s), Oral, Daily Cymbalta 20 mg Cap-DR, 1 cap(s), Oral, Daily DuoNeb 2.5 mg-0.5 mg/3 mL Soln-Inh, 3 mL, NEB, BID famotidine 40 mg Tab, 40 mg= 1 tab(s), Oral, Once a day (at bedtime) omeprazole 40 mg Cap-DR, 40 mg= 1 cap(s), Oral, Daily Singulair 10 mg Tab, 10 mg= 1 tab(s), Oral, Daily Allergies No Known Allergies Social History Alcohol Never., 02/24/2025 Substance Abuse Never., 02/24/2025 Tobacco Never (less than 100 in lifetime) Tobacco Use:. Never Smokeless Tobacco Use:., 02/25/2025 Family History Primary malignant neoplasm of colon: Brother. Immunizations Vac (more content not included)... [facility] Comment on above: Result Comment: Elec tronically Signed By: SUNIL OLSON, Franko R\.br\Date and Time Signed: 02/25/25 15:39 EDT 01-01-2025 Note Chief Complaint: Mid back pain Follow up after MRI thoracic spine HPI When did this problem begin: fell down 07/17/24 Timing/frequency of occurrence: Constant Pain description: dull ache Pain severity: 4 Radicular pain: no Numbness/tingling: No Weakness: No What improves symptoms: Rest What makes symptoms worse: Activity Previous treatment for this problem: PT ROS Constitutional: Fatigue: No Weight loss: No Fever: No Chills: No No past surgical history on file. Past Medical History: Diagnosis Date Arthritis 07/17/24 Cervical disc disorder Fracture of ankle No past surgical history on file. No Known Allergies No current outpatient medications on file. Social History Socioeconomic History Marital status: Single Spouse name: Not on file Number of children: Not on file Years of education: Not on file Highest education level: Not on file Occupational History Not on file Tobacco Use Smoking status: Never Smokeless tobacco: Not on file Substance and Sexual Activity Alcohol use: Not Currently Alcohol/week: 3.0 standard drinks of alcohol Types: 3 Cans of beer per week Drug use: Never Sexual activity: Not Currently Partners: Male control/protection: Female Sterilization Other Topics Concern Not on file Social History Narrative Not on file Social Determinants of Health Financial Resource Strain: Not on file Food Insecurity: Patient Declined (07/17/2024) Received from [facility] Hunger Vital Sign Worried About Running Out of Food in the Last Year: Patient declined Ran Out of Food in the Last Year: Patient declined Transportation Needs: Patient Declined (07/17/2024) Received from [facility] PRAPARE - Transportation Lack of Transportation (Medical): Patient declined Lack of Transportation (Non-Medical): Patient declined Physical Activity: Not on file Stress: Not on file Social Connections: Not on file Intimate Partner Violence: Unknown (12/13/2023) [place] Safety & Environment Fear of Current or Ex-Partner: Not on file Emotionally Abused: Not on file Physically Abused: Not on file Sexually Abused: Not on file Physically or Sexually Abused: Not on file Housing Stability: Patient Declined (07/17/2024) Received from [facility] Housing Stability Vital Sign Unable to Pay for Housing in the Last Year: Patient declined Number of Times Moved in the Last Year: 0 Homeless in the Last Year: Patient declined No family history on file. Physical Exam There were no vitals taken for this visit. Musculoskeletal Ortho spine musculoskeletal examination: Alignment spine: normal Tenderness: thoracic paraspinal Range of motion Cervical spine: normal Range of motion lumbar spine: limited Neurological Biceps strength: 5 Wrist extension: 5 Triceps strength: 5 Finger flexor: 5 Finger abduction strength: 5 Flexion at the hip strength: 5 Quadriceps strength: 5 Tibialis anterior strength: 5 Plantar flexion strength: 5 Extensor Hallicis Longus strength: 5 Sensory Exam: intact Straight leg raising: ABLE DTR/ Pathologic reflexes Patellar reflex- 2 Achilles reflex- 2 Gait and station Gait: Normal Images: I, Dr. Will Ruth, personally reviewed the images and my personal interpretation are: MRI acute/subacute T7 compression fracture Assessment and Plan 69 years presents with mid back pain MRI acute/subacute T7 compression fracture Explained the clinical and radiological findings with the patient and discussed management options. Recommended no current indication for spine surgical management, avoid heavy lifting Follow up 2 months [facility] 12-25-2024 Telephone encounter Note Images from the original note were not included. Angeles is calling from [facility] regarding MRI Safety information. She agreed to send a fax requesting information to [phone]. I will fax the following report. [facility] 12-25-2024 Miscellaneous Notes Images from the original note were not included. Angeles is calling from [facility] regarding MRI Safety information. She agreed to send a fax requesting information to [phone]. I will fax the following report. documented in this encounter [facility] 12-18-2024 Note Chief Complaint: mid back pain HPI When did this problem begin: fell down a year go Timing/frequency of occurrence: Constant Pain description: dull ache Pain severity: 5 Radicular pain: no Numbness/tingling: No Weakness: No What improves symptoms: Rest What makes symptoms worse: Activity Gait disturbance: No Fine hand dexterity problem: No Previous treatment for this problem: PT ROS Constitutional: Fatigue: No Weight loss: No Fever: No Chills: No No past surgical history on file. No past medical history on file. No past surgical history on file. Not on File No current outpatient medications on file. Social History Socioeconomic History Marital status: Single Spouse name: Not on file Number of children: Not on file Years of education: Not on file Highest education level: Not on file Occupational History Not on file Tobacco Use Smoking status: Not on file Smokeless tobacco: Not on file Substance and Sexual Activity Alcohol use: Not on file Drug use: Not on file Sexual activity: Not on file Other Topics Concern Not on file Social History Narrative Not on file Social Determinants of Health Financial Resource Strain: Not on file Food Insecurity: Patient Declined (07/17/2024) Received from [facility] Hunger Vital Sign Worried About Running Out of Food in the Last Year: Patient declined Ran Out of Food in the Last Year: Patient declined Transportation Needs: Patient Declined (07/17/2024) Received from [facility] PRAPARE - Transportation Lack of Transportation (Medical): Patient declined Lack of Transportation (Non-Medical): Patient declined Physical Activity: Not on file Stress: Not on file Social Connections: Not on file Intimate Partner Violence: Unknown (12/13/2023) [place] Safety & Environment Fear of Current or Ex-Partner: Not on file Emotionally Abused: Not on file Physically Abused: Not on file Sexually Abused: Not on file Physically or Sexually Abused: Not on file Housing Stability: Patient Declined (07/17/2024) Received from [facility] Housing Stability Vital Sign Unable to Pay for Housing in the Last Year: Patient declined Number of Times Moved in the Last Year: 0 Homeless in the Last Year: Patient declined No family history on file. Physical Exam There were no vitals taken for this visit. Musculoskeletal Ortho spine musculoskeletal examination: Alignment spine: normal Tenderness: thoracic paraspinal Range of motion Cervical spine: normal Range of motion lumbar spine: limited Neurological Biceps strength: 5 Wrist extension: 5 Triceps strength: 5 Finger flexor: 5 Finger abduction strength: 5 Flexion at the hip strength: 5 Quadriceps strength: 5 Tibialis anterior strength: 5 Plantar flexion strength: 5 Extensor Hallicis Longus strength: 5 Sensory Exam: intact DTR/ Pathologic reflexes Biceps reflex- 2 Brachioradialis reflex- 2 Triceps reflex- 2 Patellar reflex- 2 Achilles reflex- 2 Babinski- negative Alegre reflex: Absent Gait and station Gait: Normal Tandem gait: Able Images: I, Dr. Will Ruth, personally reviewed the images and my personal interpretation are: CT L4-5 spondylolisthesis, CT thoracic spine thoracic disc degeneration, no fracture Assessment and Plan 69 years presents with mid back pain, started after a fall a year ago Explained the clinical and radiological findings with the patient and discussed management options. Recommended MRI thoracic spine to assess for disc prolapse Follow up after MRI [facility] 10-02-2024 Telephone encounter Note Contacted and checked her status and recommended scheduling PT on if needed. She had said she has a appt w/ another doctor re: her head. She says as of right now no PT. [facility] 10-02-2024 Miscellaneous Notes Contacted and checked her status and recommended scheduling PT on if needed. She had said she has a appt w/ another doctor re: her head. She says as of right now no PT. Tried to contact to verify status and if more PT is needed; requested a call back. documented in this encounter [facility] 10-01-2024 Telephone encounter Note Tried to contact to verify status and if more PT is needed; requested a call back. [facility] 09-08-2024 History of Presen t illness Narrative Physical Therapy Treatment Visit Patient Name: Briseida Rudd Today's Date: 09/08/2024 Encounter Diagnoses Name Primary? Pain, neck Yes Visit number: 2 Timed Code Treatment Minutes: 40 minutes Total Treatment Time: 40 minutes Time In: 0700 Time Out: 0800 History: Pt. Presents to PT with c/c of neck pain and dizziness (BPPV) right sides. Pt reports of dizziness while laying down on her right side for 10-15 seconds. Pt injured to neck from falling through a sarika light 10-15 feet landing on her left side. Denies N/T. Has CT scan on Sunday to make sure bleeding has stop. Last CT scan in July. Unable to stand for long periods of time due to increase T5-T7 back pain. Work: Retired Precautions: universal Subjective: Pt reports she had some dizziness following initial eval for a few hours but then felt better until having CT on Sunday. Mild dizziness noted this date. Pain: 0/10; worst 3/10 with movement Objective: PT Evaluation (09/04/24) Neck ROM: flexion normal, extension normal, rotation 40 deg bilateral SB 30 deg Shoulder ROM: normal functional range Flexibility: moderate upper trapezius, rhomboid muscle tightness, cervical paraspinal muscle tightness Strength: scapular 4-/5 Special test: positive arelis blanco pike on right Treatment: Education: HEP education with demonstration, Educated on Eval Findings and POC Manual Therapy: (25 minutes) right side brady maneuver (2x) 30s to 45s. SOR, [place] str. Cervical spine joint mobs gentle II, Passive ROM, Joint mobilization, Soft Tissue Mobilization, Myofascial Release, Muscle Energy Technique, Neural Mobilization, Myofascial Cupping, Dry Needling, IASTM, and Scar mobilization Therapeutic Exercise: (15 minutes) exercises in grid; Strength, Endurance, Flexibility, ROM, HEP, Neural Mobilization, Power, and Core Stability Therapeutic Activity: Exercises to improve dynamic activities, functional tasks, functional mobility to return to prior activity level Neuromuscular re-education: Balance Training, Muscle Facilitation, Dynamic Stability, Core Stabilization, and Blood Flow Restriction Training (BFRT) Modalities: Heat, Ice, Electrical Stimulation, Ultrasound, Cervical Mechanical Traction, Lumbar Mechanical Traction, Iontophoresis, and Fluidotherapy Assessment: Pt. Has participated in 2 PT session with start of POC on 09/04 for neck pain and dizziness. Pt had no noted pain with PT. Some dizziness noted with position changes. Noted dizziness with Brady, no noted nystagmus Pt. Will benefit from skilled PT services. Outcome Measure: 34% Short Term Goal: To be met in 2 weeks Goal 1: Pt to be instructed in home exercise program. Electronic System Engineer Goals: To be met in 10 weeks Goal 1: Pt to report independence and compliance with home program. Goal 2: Pt. Will report of 0/10 neck pain while turning head to perform daily tasks and return to PLOF. Goal 3: Pt. Will demonstrate normal cervical paraspinal muscle flexibility to help decrease neck pain and return to PLOF. Goal 4: Pt. Will demonstrate 5/5 scapular strength bilateral to help improve her postural strength to help improve her functional mobility and return to PLOF. Goal 5: Pt. Will report of no dizziness with position changes to help improve her functional mobility and return to PLOF. Pt will benefit from skilled PT for 1-2x/week from 09/04/24 to 11/13/24 to address the above impairments. I hereby deem this POC medically necessary. Please sign below. Date: Cosigned by Ti Wells, PT at 09/08/2024 9:51 AM EST documented in this encounter [facility] 09-04-2024 History of Presen t illness Narrative Physical Therapy Evaluation Visit Patient Name: Briseida Rudd Today's Date: 09/04/2024 Encounter Diagnoses Name Primary? Pain, neck Yes Visit number: 1 Timed Code Treatment Minutes: 60 minutes Total Treatment Time: 60 minutes Time In: 0700 Time Out: 0800 History: Pt. Presents to PT with c/c of neck pain and dizziness (BPPV) right sides. Pt reports of dizziness while laying down on her right side for 10-15 seconds. Pt injured to neck from falling through a sarika light 10-15 feet landing on her left side. Denies N/T. Has CT scan on Sunday to make sure bleeding has stop. Last CT scan in July. Unable to stand for long periods of time due to increase T5-T7 back pain. Work: Retired Precautions: universal Subjective Pain: 0/10; worst 3/10 with movement Objective: PT Evaluation (09/04/24) Neck ROM: flexion normal, extension normal, rotation 40 deg bilateral SB 30 deg Shoulder ROM: normal functional range Flexibility: moderate upper trapezius, rhomboid muscle tightness, cervical paraspinal muscle tightness Strength: scapular 4-/5 Special test: positive arelis blanco pike on right Treatment: PT evaluation (20 minutes) Education: HEP education with demonstration, Educated on Eval Findings and POC Manual Therapy: (24 minutes) right side brady maneuver (3x) 30s to 45s. SOR, [place] str. Cervical spine joint mobs gentle II, Passive ROM, Joint mobilization, Soft Tissue Mobilization, Myofascial Release, Muscle Energy Technique, Neural Mobilization, Myofascial Cupping, Dry Needling, IASTM, and Scar mobilization Therapeutic Exercise: (15 minutes) exercises in grid; Strength, Endurance, Flexibility, ROM, HEP, Neural Mobilization, Power, and Core Stability Therapeutic Activity: Exercises to improve dynamic activities, functional tasks, functional mobility to return to prior activity level Neuromuscular re-education: Balance Training, Muscle Facilitation, Dynamic Stability, Core Stabilization, and Blood Flow Restriction Training (BFRT) Modalities: Heat, Ice, Electrical Stimulation, Ultrasound, Cervical Mechanical Traction, Lumbar Mechanical Traction, Iontophoresis, and Fluidotherapy Assessment: Pt. Has participated in 1 PT session with start of POC on 09/04 for neck pain and dizziness. Pt. Will benefit from skilled PT services. Outcome Measure: 34% Short Term Goal: To be met in 2 weeks Goal 1: Pt to be instructed in home exercise program. Electronic System Engineer Goals: To be met in 10 weeks Goal 1: Pt to report independence and compliance with home program. Goal 2: Pt. Will report of 0/10 neck pain while turning head to perform daily tasks and return to PLOF. Goal 3: Pt. Will demonstrate normal cervical paraspinal muscle flexibility to help decrease neck pain and return to PLOF. Goal 4: Pt. Will demonstrate 5/5 scapular strength bilateral to help improve her postural strength to help improve her functional mobility and return to PLOF. Goal 5: Pt. Will report of no dizziness with position changes to help improve her functional mobility and return to PLOF. Pt will benefit from skilled PT for 1-2x/week from 09/04/24 to 11/13/24 to address the above impairments. I hereby deem this POC medically necessary. Please sign below. Date: documented in this encounter [facility] 07-21-2024 History of Presen t illness Narrative Physical Therapy Facility/Department: [address] [place] Physical Therapy Initial Assessment Name: Briseida Rudd : 1955 Date of Service: 07/21/2024 Discharge Recommendations: Patient would benefit from continued therapy after discharge PT Equipment Recommendations Equipment Needed: Yes Mobility Devices: Walker Walker: Rolling Patient Diagnosis(es): The primary encounter diagnosis was Subarachnoid hemorrhage (HCC). A diagnosis of Closed fracture of sternum, unspecified portion of sternum, initial encounter was also pertinent to this visit. Past Medical History: has no past medical history on file. Past Surgical History: has no past surgical history on file. Assessment Body Structures, Functions, Activity Limitations Requiring Skilled Therapeutic Intervention: Decreased functional mobility ;Decreased strength;Decreased endurance Assessment: The pt ambulated 75 ft with a RW x CGA. She had no c/o pain, dizziness, or fatigue with mobilization. She could benefit from a continuation of PT for gait , strengthening and functional mobility prior to her DC Therapy Prognosis: Good Decision Making: Medium Complexity Requires PT Follow-Up: Yes Activity Tolerance Activity Tolerance: Patient limited by fatigue;Patient limited by endurance Plan Physical Therapy Plan General Plan: 5-7 times per week Current Treatment Recommendations: Strengthening, Functional mobility training, Transfer training, Gait training, Endurance training, Stair training, Safety education & training, Therapeutic activities Safety Devices Type of Devices: Call light within reach, Gait belt, Nurse notified, Left in bed Restraints Restraints Initially in Place: No Restrictions Restrictions/Precautions Restrictions/Precautions: Up as Tolerated Required Braces or Orthoses?: No Position Activity Restriction Other position/activity restrictions: Per CT: Findings suspicious for mild compression fracture at T7, without significant loss of vertebral body height; Mild vertebral body height loss at T3 and T5, age indeterminate; Otherwise no acute fracture subluxation of the thoracolumbar spine. This discussed with Tika Gee NP, trauma along with a Perfect Serve message. Tika said neurosurgery has seen the patient and she is clear to mobilize. Activity order is up as tolerated. Subjective General Patient assessed for rehabilitation services?: Yes Response To Previous Treatment: Not applicable Family / Caregiver Present: No Follows Commands: Within Functional Limits Subjective Subjective: The pt denies pain Social/Functional History Social/Functional History Lives With: Family ( and mother in law) Type of Home: House Home Layout: Two level, Bed/Bath upstairs (Bathroom on main level, bedroom upstairs) Home Access: Stairs to enter without rails Entrance Stairs - Number of Steps: 3+2 Bathroom Shower/Tub: Walk-in shower Bathroom Toilet: Standard Bathroom Equipment: Grab bars in shower Home Equipment: Walker - Standard, Cane (does not use AE at baseline) Has the patient had two or more falls in the past year or any fall with injury in the past year?: No ADL Assistance: Independent Homemaking Assistance: Independent Homemaking Responsibilities: Yes Ambulation Assistance: Independent Transfer Assistance: Independent 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 Cares for mother in law who lives in the home Vision/Hearing Vision Vision: Impaired Vision Exceptions: Wears glasses at all times Hearing Hearing: Within functional limits Cognition Orientation Overall Orientation Status: Within Functional Limits Orientation Level: Oriented X4 Cognition Overall Cognitive Status: WFL Objective Temp: 97.1 F (36.2 C) Pulse: 89 Heart Rate Source: Monitor Respirations: 23 SpO2: 97 % O2 Device: None (Room air) BP: 127/78 MAP (Calculated): 94 BP Location: Right upper arm BP Method: Automatic Patient Position: Semi fowlers AROM RLE (degrees) RLE AROM: WNL AROM LLE (degrees) LLE AROM : WNL AROM RUE (degrees) RUE AROM : WNL AROM LUE (degrees) LUE General AROM: 0-45 degrees shld flx/abd Strength RLE Strength RLE: WNL Strength LLE Strength LLE: WNL Strength RUE Strength RUE: WNL Strength LUE Comment: N/T Bed mobility Rolling to Right: Contact guard assistance Supine to Sit: Contact guard assistance Sit to Supine: Contact guard assistance Transfers Sit to Stand: Contact guard assistance Stand to Sit: Contact guard assistance Ambulation Surface: Level tile Device: Rolling Walker Assistance: Contact guard assistance Distance: amb 75 ft with a RW x CGA Balance Posture: Good Sitting - Static: Good Sitting - Dynamic: Fair Standing - Static: Good Standing - Dynamic: Fair OutComes Score [facility] - Mobility [facility] Basic Mobility - Inpatient How much help is needed turning from your back to your side while in a flat bed without using bedrails?: None How much help is needed moving from lying on your back to sitting on the side of a flat bed without using bedrails?: None How much help is needed moving to and from a bed to a chair?: None How much help is needed standing up from a chair using your arms?: None How much help is needed walking in hospital room?: A Little How much help is needed climbing 3-5 steps with a railing?: A Little [facility] Inpatient Mobility Raw Score : 22 [facility] Inpatient T-Scale Score : 53.28 Mobility Inpatient CMS 0-100% Score: 20.91 Mobility Inpatient [facility] G-Code Modifier : CJ Tinneti Score Goals Short Term Goals Time Frame for Short Term Goals: 10 visits Short Term Goal 1: transfers with SBA Short Term Goal 2: amb 200 ft with a RW x SBA Short Term Goal 3: ascend/descend 4 steps with SBA Short Term Goal 4: 20 min strengthening exercises x SBA Education Patient Education Education Given To: Patient Education Provided: Role of Therapy;Plan of Care Education Method: Verbal Barriers to Learning: None Education Outcome: Verbalized understanding Therapy Time Individual Concurrent Group Co-treatment Time In 1344 Time Out 1405 Minutes 21 Ron Wilde, PT Pt picked up 4 discharge meds at window- Images from the original note were not included. PROGRESS NOTE PATIENT NAME: Briseida Rudd DATE: 07/20/2024 HD: # 3 DIAGNOSIS AND PLAN Sternal fracture SAH <7mm 07/19: New onset headache, photophobia, Repeat CTH stable Pain TERT negative Not frail Repeated head ct stable Thoracic called fracture are erroneous and no pain per nsx Plan: OT PT Dispo planning Pain control for [facility] Plan dc home once cleared by pt ot OBJECTIVE VITALS: Vitals: 07/20/24 0755 BP: Pulse: 89 Resp: 21 Temp: 97.5 F (36.4 C) SpO2: 99% Physical Exam Constitutional: Appearance: She is obese. HENT: Head: Normocephalic. Nose: Nose normal. Mouth/Throat: Mouth: Mucous membranes are dry. Eyes: Extraocular Movements: Extraocular movements intact. Cardiovascular: Rate and Rhythm: Normal rate. Pulses: Normal pulses. Pulmonary: Effort: Pulmonary effort is normal. Abdominal: Palpations: Abdomen is soft. Musculoskeletal: Cervical back: Neck supple. Skin: General: Skin is warm. Capillary Refill: Capillary refill takes less than 2 seconds. LAB: CBC: Recent Labs 07/17/24 1316 07/18/24 0533 WBC 13.7* 10.7 HGB 12.4 11.6* HCT 38.8 37.6 MCV 87.8 89.5 PLT 253 231 BMP: Recent Labs 07/17/24 1316 NA 141 K 4.0 CL 107 CO2 23 BUN 16 CREATININE 0.6 GLUCOSE 129* RADIOLOGY: CT HEAD WO CONTRAST Final Result Stable noncontrast head CT. Small quantity of subarachnoid hemorrhage in the right frontal lobe. No mass effect, extra-axial hematoma or new intracranial hemorrhage identified. XR ELBOW LEFT (MIN 3 VIEWS) Final Result 1. No acute osseous abnormality of the left elbow, forearm, wrist, or hand. 2. Remote ulnar styloid process tip fracture versus unfused apophysis. 3. Mild degenerative change at the radiocarpal joint. XR RADIUS ULNA LEFT (2 VIEWS) Final Result 1. No acute osseous abnormality of the left elbow, forearm, wrist, or hand. 2. Remote ulnar styloid process tip fracture versus unfused apophysis. 3. Mild degenerative change at the radiocarpal joint. XR WRIST LEFT (MIN 3 VIEWS) Final Result 1. No acute osseous abnormality of the left elbow, forearm, wrist, or hand. 2. Remote ulnar styloid process tip fracture versus unfused apophysis. 3. Mild degenerative change at the radiocarpal joint. XR HAND LEFT (MIN 3 VIEWS) Final Result 1. No acute osseous abnormality of the left elbow, forearm, wrist, or hand. 2. Remote ulnar styloid process tip fracture versus unfused apophysis. 3. Mild degenerative change at the radiocarpal joint. XR KNEE LEFT (3 VIEWS) Final Result No acute osseous abnormality involving the knee, tibia or fibula. XR TIBIA FIBULA LEFT (2 VIEWS) Final Result No acute osseous abnormality involving the knee, tibia or fibula. CT HEAD WO CONTRAST Final Result 1. Similar degree of subarachnoid hemorrhage along the posterior aspect of the right frontal lobe. 2. Similar degree of scalp hematoma and swelling. XR HUMERUS LEFT (MIN 2 VIEWS) Final Result Left ankle: No acute fracture or dislocation. Left foot: No acute fracture or dislocation Right ankle: No acute fracture or dislocation. Left shoulder: No acute fracture or dislocation. Mild pulmonary vascular congestion and left basilar airspace opacity. Cardiomegaly. Further evaluation with chest x-ray recommended. Left humerus: No acute osseous abnormality. XR ANKLE LEFT (MIN 3 VIEWS) Final Result Left ankle: No acute fracture or dislocation. Left foot: No acute fracture or dislocation Right ankle: No acute fracture or dislocation. Left shoulder: No acute fracture or dislocation. Mild pulmonary vascular congestion and left basilar airspace opacity. Cardiomegaly. Further evaluation with chest x-ray recommended. Left humerus: No acute osseous abnormality. XR FOOT LEFT (2 VIEWS) Final Result Left ankle: No acute fracture or dislocation. Left foot: No acute fracture or dislocation Right ankle: No acute fracture or dislocation. Left shoulder: No acute fracture or dislocation. Mild pulmonary vascular congestion and left basilar airspace opacity. Cardiomegaly. Further evaluation with chest x-ray recommended. Left humerus: No acute osseous abnormality. XR SHOULDER LEFT (MIN 2 VIEWS) Final Result Left ankle: No acute fracture or dislocation. Left foot: No acute fracture or dislocation Right ankle: No acute fracture or dislocation. Left shoulder: No acute fracture or dislocation. Mild pulmonary vascular congestion and left basilar airspace opacity. Cardiomegaly. Further evaluation with chest x-ray recommended. Left humerus: No acute osseous abnormality. XR ANKLE RIGHT (MIN 3 VIEWS) Final Result Left ankle: No acute fracture or dislocation. Left foot: No acute fracture or dislocation Right ankle: No acute fracture or dislocation. Left shoulder: No acute fracture or dislocation. Mild pulmonary vascular congestion and left basilar airspace opacity. Cardiomegaly. Further evaluation with chest x-ray recommended. Left humerus: No acute osseous abnormality. CT LUMBAR SPINE BONY RECONSTRUCTION Final Result 1. Findings suspicious for mild compression fracture at T7, without significant loss of vertebral body height. 2. Mild vertebral body height loss at T3 and T5, age indeterminate. 3. Otherwise no acute fracture subluxation of the thoracolumbar spine. CT THORACIC SPINE BONY RECONSTRUCTION Final Result 1. Findings suspicious for mild compression fracture at T7, without significant loss of vertebral body height. 2. Mild vertebral body height loss at T3 and T5, age indeterminate. 3. Otherwise no acute fracture subluxation of the thoracolumbar spine. CT CHEST ABDOMEN PELVIS W CONTRAST Additional Contrast? None Final Result 1. No acute intrathoracic, intra-abdominal or intrapelvic abnormalities. 2. Hepatic steatosis. 3. Cholelithiasis. 4. Fracture of the upper sternum CT CERVICAL SPINE WO CONTRAST Final Result 1. Mild subarachnoid hemorrhage in the right parietal region. Follow-up exam recommended. 2. Significant right frontal and biparietal soft tissue swelling. 3. No acute bony abnormalities are noted in the cervical spine. 4. Multilevel cervical spondylosis and degenerative disc disease. Critical results were called by Dr. Cole Garcia MD to Tika Gee NP on 07/17/2024 at 2:15. RECOMMENDATIONS: Further evaluation of the cervical spine should be obtained with MR imaging if clinically indicated. CT HEAD WO CONTRAST Final Result 1. Mild subarachnoid hemorrhage in the right parietal region. Follow-up exam recommended. 2. Significant right frontal and biparietal soft tissue swelling. 3. No acute bony abnormalities are noted in the cervical spine. 4. Multilevel cervical spondylosis and degenerative disc disease. Critical results were called by Dr. Cole Garcia MD to Tika Gee NP on 07/17/2024 at 2:15. RECOMMENDATIONS: Further evaluation of the cervical spine should be obtained with MR imaging if clinically indicated. Flores Taylor, 07/20/2024, 8:14 AM Attestation signed by Teddy Luna MD I personally evaluated the patient and directed the medical decision making with Resident/LEATHA after the physical/radiologic exam and laboratory values were reviewed and confirmed. Teddy Luna MD Images from the original note were not included. PROGRESS NOTE PATIENT NAME: Briseida Rudd DATE: 07/19/2024 HD: # 2 DIAGNOSIS AND PLAN Sternal fracture Sah <7mm New onset headache, photophobia Repeat CTH this am stable Pain Tert negative Not frail Repeated head ct stable Thoracic called fracture are erroneous and no pain per nsx Plan: Ot pt Dispo planning Pain control for [facility] today Plan dc home once cleared by pt ot OBJECTIVE VITALS: Vitals: 07/19/24 0721 BP: (!) 104/54 Pulse: 76 Resp: 13 Temp: 98.1 F (36.7 C) SpO2: 93% Physical Exam Constitutional: Appearance: She is obese. HENT: Head: Normocephalic. Nose: Nose normal. Mouth/Throat: Mouth: Mucous membranes are dry. Eyes: Extraocular Movements: Extraocular movements intact. Cardiovascular: Rate and Rhythm: Normal rate. Pulses: Normal pulses. Pulmonary: Effort: Pulmonary effort is normal. Abdominal: Palpations: Abdomen is soft. Musculoskeletal: Cervical back: Neck supple. Skin: General: Skin is warm. Capillary Refill: Capillary refill takes less than 2 seconds. LAB: CBC: Recent Labs 07/17/24 1316 07/18/24 0533 WBC 13.7* 10.7 HGB 12.4 11.6* HCT 38.8 37.6 MCV 87.8 89.5 PLT 253 231 BMP: Recent Labs 07/17/24 1316 NA 141 K 4.0 CL 107 CO2 23 BUN 16 CREATININE 0.6 GLUCOSE 129* RADIOLOGY: XR ELBOW LEFT (MIN 3 VIEWS) Final Result 1. No acute osseous abnormality of the left elbow, forearm, wrist, or hand. 2. Remote ulnar styloid process tip fracture versus unfused apophysis. 3. Mild degenerative change at the radiocarpal joint. XR RADIUS ULNA LEFT (2 VIEWS) Final Result 1. No acute osseous abnormality of the left elbow, forearm, wrist, or hand. 2. Remote ulnar styloid process tip fracture versus unfused apophysis. 3. Mild degenerative change at the radiocarpal joint. XR WRIST LEFT (MIN 3 VIEWS) Final Result 1. No acute osseous abnormality of the left elbow, forearm, wrist, or hand. 2. Remote ulnar styloid process tip fracture versus unfused apophysis. 3. Mild degenerative change at the radiocarpal joint. XR HAND LEFT (MIN 3 VIEWS) Final Result 1. No acute osseous abnormality of the left elbow, forearm, wrist, or hand. 2. Remote ulnar styloid process tip fracture versus unfused apophysis. 3. Mild degenerative change at the radiocarpal joint. XR KNEE LEFT (3 VIEWS) Final Result No acute osseous abnormality involving the knee, tibia or fibula. XR TIBIA FIBULA LEFT (2 VIEWS) Final Result No acute osseous abnormality involving the knee, tibia or fibula. CT HEAD WO CONTRAST Final Result 1. Similar degree of subarachnoid hemorrhage along the posterior aspect of the right frontal lobe. 2. Similar degree of scalp hematoma and swelling. XR HUMERUS LEFT (MIN 2 VIEWS) Final Result Left ankle: No acute fracture or dislocation. Left foot: No acute fracture or dislocation Right ankle: No acute fracture or dislocation. Left shoulder: No acute fracture or dislocation. Mild pulmonary vascular congestion and left basilar airspace opacity. Cardiomegaly. Further evaluation with chest x-ray recommended. Left humerus: No acute osseous abnormality. XR ANKLE LEFT (MIN 3 VIEWS) Final Result Left ankle: No acute fracture or dislocation. Left foot: No acute fracture or dislocation Right ankle: No acute fracture or dislocation. Left shoulder: No acute fracture or dislocation. Mild pulmonary vascular congestion and left basilar airspace opacity. Cardiomegaly. Further evaluation with chest x-ray recommended. Left humerus: No acute osseous abnormality. XR FOOT LEFT (2 VIEWS) Final Result Left ankle: No acute fracture or dislocation. Left foot: No acute fracture or dislocation Right ankle: No acute fracture or dislocation. Left shoulder: No acute fracture or dislocation. Mild pulmonary vascular congestion and left basilar airspace opacity. Cardiomegaly. Further evaluation with chest x-ray recommended. Left humerus: No acute osseous abnormality. XR SHOULDER LEFT (MIN 2 VIEWS) Final Result Left ankle: No acute fracture or dislocation. Left foot: No acute fracture or dislocation Right ankle: No acute fracture or dislocation. Left shoulder: No acute fracture or dislocation. Mild pulmonary vascular congestion and left basilar airspace opacity. Cardiomegaly. Further evaluation with chest x-ray recommended. Left humerus: No acute osseous abnormality. XR ANKLE RIGHT (MIN 3 VIEWS) Final Result Left ankle: No acute fracture or dislocation. Left foot: No acute fracture or dislocation Right ankle: No acute fracture or dislocation. Left shoulder: No acute fracture or dislocation. Mild pulmonary vascular congestion and left basilar airspace opacity. Cardiomegaly. Further evaluation with chest x-ray recommended. Left humerus: No acute osseous abnormality. CT LUMBAR SPINE BONY RECONSTRUCTION Final Result 1. Findings suspicious for mild compression fracture at T7, without significant loss of vertebral body height. 2. Mild vertebral body height loss at T3 and T5, age indeterminate. 3. Otherwise no acute fracture subluxation of the thoracolumbar spine. CT THORACIC SPINE BONY RECONSTRUCTION Final Result 1. Findings suspicious for mild compression fracture at T7, without significant loss of vertebral body height. 2. Mild vertebral body height loss at T3 and T5, age indeterminate. 3. Otherwise no acute fracture subluxation of the thoracolumbar spine. CT CHEST ABDOMEN PELVIS W CONTRAST Additional Contrast? None Final Result 1. No acute intrathoracic, intra-abdominal or intrapelvic abnormalities. 2. Hepatic steatosis. 3. Cholelithiasis. 4. Fracture of the upper sternum CT CERVICAL SPINE WO CONTRAST Final Result 1. Mild subarachnoid hemorrhage in the right parietal region. Follow-up exam recommended. 2. Significant right frontal and biparietal soft tissue swelling. 3. No acute bony abnormalities are noted in the cervical spine. 4. Multilevel cervical spondylosis and degenerative disc disease. Critical results were called by Dr. Cole Garcia MD to Tika Gee NP on 07/17/2024 at 2:15. RECOMMENDATIONS: Further evaluation of the cervical spine should be obtained with MR imaging if clinically indicated. CT HEAD WO CONTRAST Final Result 1. Mild subarachnoid hemorrhage in the right parietal region. Follow-up exam recommended. 2. Significant right frontal and biparietal soft tissue swelling. 3. No acute bony abnormalities are noted in the cervical spine. 4. Multilevel cervical spondylosis and degenerative disc disease. Critical results were called by Dr. Cole Garcia MD to Tika Gee NP on 07/17/2024 at 2:15. RECOMMENDATIONS: Further evaluation of the cervical spine should be obtained with MR imaging if clinically indicated. Flores Taylor, DO 07/19/2024, 8:02 AM Attestation signed by Teddy Luna MD I personally evaluated the patient and directed the medical decision making with Resident/LEATHA after the physical/radiologic exam and laboratory values were reviewed and confirmed. Teddy Luna MD 15 Variable Trauma-Specific Frailty Index Comorbidities Cancer History Yes (1) No (0) Coronary Heart Disease VT (1) CABG (0.75) Mild (0.25) No (0) Dementia Severe (1) Moderate (0.5) Mild (0.25) No (0) Daily Activities Help With Grooming Yes (1) No (0) Help with Managing Money Yes (1) No (0) Help doing Housework Yes (1) No (0) Help with Toileting Yes (1) No (0) Help Walking Wheelchair (1) Walker (0.75) Cane (0.5) No (0) Health Attitude Feel Less Useful Most Time (1) Sometimes (0.5) Never (0) Feel Sad Most Time (1) Sometimes (0.5) Never (0) Feel Effort to Do Everything Most Time (1) Sometimes (0.5) Never (0) Feels Lonely Most Time (1) Sometimes (0.5) Never (0) Falls Most Time (1) Sometimes (0.5) Never (0) Function Sexually Active Yes (0) No(1) Nutrition Albumin < 3g/dL (1) > 3g/dL Scoring Score FI (Score/15) > 0.25 = Frail *Based on 2-weeks prior to hospital admission Trauma Specific Fraility Index > or = to 4 (4/15 = 0.26) Trauma Specific Fraility Index Score: <4 not frail Facility/Department: [address] [place] Occupational Therapy Initial Evaluation Patient Name: Briseida Rudd : 1955 Date of Service: 07/18/2024 Chief Complaint Patient presents with Fall Discharge Recommendations Discharge Recommendations: Patient would benefit from continued therapy after discharge OT Equipment Recommendations Equipment Needed: (CTA) Assessment Performance deficits / Impairments: Decreased functional mobility ;Decreased ADL status;Decreased ROM;Decreased high-level IADLs;Decreased balance;Decreased endurance;Decreased coordination Assessment: Pt requires assist for self care and transfers this date with use of RW. Pt unable to tolerate steps at this time despite attempt made. Pt is typically IND at baseline without the use of AE. Pt limited by above deficits impacting functional performance. Pt would benefit from continued therapy prior to and following discharge from acute setting to increase safety and IND in self care. Prognosis: Good Decision Making: Medium Complexity REQUIRES OT FOLLOW-UP: Yes Activity Tolerance Activity Tolerance: Patient limited by pain;Treatment limited secondary to medical complications (free text) Activity Tolerance Comments: Nausea Safety Devices Type of Devices: Call light within reach;Gait belt;Nurse notified;Left in bed Restraints Restraints Initially in Place: No Restrictions/Precautions Restrictions/Precautions Restrictions/Precautions: Up as Tolerated Required Braces or Orthoses?: No Position Activity Restriction Other position/activity restrictions: Per CT: Findings suspicious for mild compression fracture at T7, without significant loss of vertebral body height; Mild vertebral body height loss at T3 and T5, age indeterminate; Otherwise no acute fracture subluxation of the thoracolumbar spine. This discussed with Tika Gee NP, trauma along with a Perfect Serve message. Tika said neurosurgery has seen the patient and she is clear to mobilize. Activity order is up as tolerated. Subjective General Patient assessed for rehabilitation services?: Yes Family / Caregiver Present: No General Comment Comments: RN okayed for therapy. Pt agreeable and cooperative thorughout. Pt reports 8/10 pain in sternum, L shoulder and headache. Pt throwing up on 2 occasions in session. Pt returned to supine for comfort and RN notified of nausea. Home Setup/Prior Level of Function Social/Functional History Lives With: Family ( and mother in law) Type of Home: House Home Layout: Two level;Bed/Bath upstairs (Bathroom on main level, bedroom upstairs) Home Access: Stairs to enter without rails Entrance Stairs - Number of Steps: 3+2 Bathroom Shower/Tub: Walk-in shower Bathroom Toilet: Standard Bathroom Equipment: Grab bars in shower Home Equipment: Walker - Standard;Cane (does not use AE at baseline) Has the patient had two or more falls in the past year or any fall with injury in the past year?: No ADL Assistance: Independent Homemaking Assistance: Independent Homemaking Responsibilities: Yes Ambulation Assistance: Independent Transfer Assistance: Independent Active Children Librarian: Yes Occupation: Retired Additional Comments: Pt reports can assit at discharge. Cares for mother in law who lives in the home Vision/Hearing Vision Vision: Impaired Vision Exceptions: Wears glasses at all times Hearing Hearing: Within functional limits BUE Assessment Gross Assessment AROM: Generally decreased, functional (RUE WFL, L shoulder flexion and elbow extension/flexion limited by pain. Able to grasp L hand) Strength: Generally decreased, functional (RUE 4/5, LUE not tested d/t pain. 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 Pt limited by pain, particularly to LUE with movement with pt guarding L side d/t pain, as well as pain with WB through LLE in standing Balance Balance Sitting: Without support (SBA EOB) Standing: With support (~4 mins total with RW at CGA) Transfers/Mobility Bed mobility Supine to Sit: Moderate assistance Sit to Supine: Moderate assistance Scooting: Minimal assistance Bed Mobility Comments: HOB elevated. Use of bed rails and pillow to brace sternum for comfort Transfers Sit to stand: Minimal assistance Stand to sit: Minimal assistance Transfer Comments: with RW at bedside. Pt initally unable to tolerate standing on LLE d/t shooting pain. Better sucess with cuing to rely more on RLE and UB. Functional Mobility Skilled Clinical Factors: Pt unable to tolerate steps this date d/t LLE pain with WB despite education with RW Patient Education Patient Education Education Given To: Patient Education Provided: Role of Therapy;Plan of Care;Transfer Training;Energy Conservation Education Provided Comments: bed mobility, use of pillow to brace sternum for pain management, deep breathing Education Method: Verbal Barriers to Learning: None Education Outcome: Demonstrated understanding;Verbalized understanding Goals Short Term Goals Time Frame for Short Term Goals: By discharge; Pt will Short Term Goal 1: Complete UB ADL's SBA with modified techniques as needed Short Term Goal 2: Complete LB ADL's CGA with AE/DME/modified techniques Short Term Goal 3: Demo Good safety throughout session without cuing Short Term Goal 4: Complete functional transfers/mobility CGA with LRAD Short Term Goal 5: Tolerate standing 5+ mins SBA with LRAD to engage in functional tasks Short Term Goal 6: Implement EC/WS techniques as needed thorughout session without cuing Prison Goals Time Frame for Electronic System Engineer Goals : NOTIFY OTR TO UPDATE GOALS NEEDED Plan Occupational Therapy Plan Times Per Week: 4-5x/week Current Treatment Recommendations: Balance training, Functional mobility training, Pain management, Safety education & training, Patient/Caregiver education & training, Equipment evaluation, education, & procurement, Self-Care / ADL, Home management training, Endurance training, ROM AM-PAC Daily Activities Inpatient AM-[facility] Daily Activity - Inpatient How much help is needed for putting on and taking off regular lower body clothing?: A Little How much help is needed for bathing (which includes washing, rinsing, drying)?: A Lot How much help is needed for toileting (which includes using toilet, bedpan, or urinal)?: A Little How much help is needed for putting on and taking off regular upper body clothing?: A Lot How much help is needed for taking care of personal grooming?: A Little How much help for eating meals?: A Little AM-PAC Inpatient Daily Activity Raw Score: 16 AM-[facility] Inpatient ADL T-Scale Score : 35.96 ADL Inpatient CMS 0-100% Score: 53.32 ADL Inpatient CMS G-Code Modifier : CK Minutes OT Individual Minutes Time In: 939 Time Out: 1014 Minutes: 34 Time Code Minutes Timed Code Treatment Minutes: 23 Minutes Images from the original note were not included. PROGRESS NOTE PATIENT NAME: Briseida Rudd DATE: 07/18/2024 HD: # 1 DIAGNOSIS AND PLAN Sternal fracture Sah <7mm Pain Tert negative Not frail Repeated head ct stable Thoracic called fracture are erroneous and no pain per nsx Plan: Ot pt Dispo planning Plan dc home once cleared by pt ot OBJECTIVE VITALS: Vitals: 07/18/24 0808 BP: 107/62 Pulse: 94 Resp: 19 Temp: 97.7 F (36.5 C) SpO2: 99% Physical Exam Constitutional: Appearance: She is obese. HENT: Head: Normocephalic. Nose: Nose normal. Mouth/Throat: Mouth: Mucous membranes are dry. Eyes: Extraocular Movements: Extraocular movements intact. Cardiovascular: Rate and Rhythm: Normal rate. Pulses: Normal pulses. Pulmonary: Effort: Pulmonary effort is normal. Abdominal: Palpations: Abdomen is soft. Musculoskeletal: Cervical back: Neck supple. Skin: General: Skin is warm. Capillary Refill: Capillary refill takes less than 2 seconds. LAB: CBC: Recent Labs 07/17/24 1316 07/18/24 0533 WBC 13.7* 10.7 HGB 12.4 11.6* HCT 38.8 37.6 MCV 87.8 89.5 PLT 253 231 BMP: Recent Labs 07/17/24 1316 NA 141 K 4.0 CL 107 CO2 23 BUN 16 CREATININE 0.6 GLUCOSE 129* RADIOLOGY: XR ELBOW LEFT (MIN 3 VIEWS) Final Result 1. No acute osseous abnormality of the left elbow, forearm, wrist, or hand. 2. Remote ulnar styloid process tip fracture versus unfused apophysis. 3. Mild degenerative change at the radiocarpal joint. XR RADIUS ULNA LEFT (2 VIEWS) Final Result 1. No acute osseous abnormality of the left elbow, forearm, wrist, or hand. 2. Remote ulnar styloid process tip fracture versus unfused apophysis. 3. Mild degenerative change at the radiocarpal joint. XR WRIST LEFT (MIN 3 VIEWS) Final Result 1. No acute osseous abnormality of the left elbow, forearm, wrist, or hand. 2. Remote ulnar styloid process tip fracture versus unfused apophysis. 3. Mild degenerative change at the radiocarpal joint. XR HAND LEFT (MIN 3 VIEWS) Final Result 1. No acute osseous abnormality of the left elbow, forearm, wrist, or hand. 2. Remote ulnar styloid process tip fracture versus unfused apophysis. 3. Mild degenerative change at the radiocarpal joint. XR KNEE LEFT (3 VIEWS) Final Result No acute osseous abnormality involving the knee, tibia or fibula. XR TIBIA FIBULA LEFT (2 VIEWS) Final Result No acute osseous abnormality involving the knee, tibia or fibula. CT HEAD WO CONTRAST Final Result 1. Similar degree of subarachnoid hemorrhage along the posterior aspect of the right frontal lobe. 2. Similar degree of scalp hematoma and swelling. XR HUMERUS LEFT (MIN 2 VIEWS) Final Result Left ankle: No acute fracture or dislocation. Left foot: No acute fracture or dislocation Right ankle: No acute fracture or dislocation. Left shoulder: No acute fracture or dislocation. Mild pulmonary vascular congestion and left basilar airspace opacity. Cardiomegaly. Further evaluation with chest x-ray recommended. Left humerus: No acute osseous abnormality. XR ANKLE LEFT (MIN 3 VIEWS) Final Result Left ankle: No acute fracture or dislocation. Left foot: No acute fracture or dislocation Right ankle: No acute fracture or dislocation. Left shoulder: No acute fracture or dislocation. Mild pulmonary vascular congestion and left basilar airspace opacity. Cardiomegaly. Further evaluation with chest x-ray recommended. Left humerus: No acute osseous abnormality. XR FOOT LEFT (2 VIEWS) Final Result Left ankle: No acute fracture or dislocation. Left foot: No acute fracture or dislocation Right ankle: No acute fracture or dislocation. Left shoulder: No acute fracture or dislocation. Mild pulmonary vascular congestion and left basilar airspace opacity. Cardiomegaly. Further evaluation with chest x-ray recommended. Left humerus: No acute osseous abnormality. XR SHOULDER LEFT (MIN 2 VIEWS) Final Result Left ankle: No acute fracture or dislocation. Left foot: No acute fracture or dislocation Right ankle: No acute fracture or dislocation. Left shoulder: No acute fracture or dislocation. Mild pulmonary vascular congestion and left basilar airspace opacity. Cardiomegaly. Further evaluation with chest x-ray recommended. Left humerus: No acute osseous abnormality. XR ANKLE RIGHT (MIN 3 VIEWS) Final Result Left ankle: No acute fracture or dislocation. Left foot: No acute fracture or dislocation Right ankle: No acute fracture or dislocation. Left shoulder: No acute fracture or dislocation. Mild pulmonary vascular congestion and left basilar airspace opacity. Cardiomegaly. Further evaluation with chest x-ray recommended. Left humerus: No acute osseous abnormality. CT LUMBAR SPINE BONY RECONSTRUCTION Final Result 1. Findings suspicious for mild compression fracture at T7, without significant loss of vertebral body height. 2. Mild vertebral body height loss at T3 and T5, age indeterminate. 3. Otherwise no acute fracture subluxation of the thoracolumbar spine. CT THORACIC SPINE BONY RECONSTRUCTION Final Result 1. Findings suspicious for mild compression fracture at T7, without significant loss of vertebral body height. 2. Mild vertebral body height loss at T3 and T5, age indeterminate. 3. Otherwise no acute fracture subluxation of the thoracolumbar spine. CT CHEST ABDOMEN PELVIS W CONTRAST Additional Contrast? None Final Result 1. No acute intrathoracic, intra-abdominal or intrapelvic abnormalities. 2. Hepatic steatosis. 3. Cholelithiasis. 4. Fracture of the upper sternum CT CERVICAL SPINE WO CONTRAST Final Result 1. Mild subarachnoid hemorrhage in the right parietal region. Follow-up exam recommended. 2. Significant right frontal and biparietal soft tissue swelling. 3. No acute bony abnormalities are noted in the cervical spine. 4. Multilevel cervical spondylosis and degenerative disc disease. Critical results were called by Dr. Cole Garcia MD to Tika Gee NP on 07/17/2024 at 2:15. RECOMMENDATIONS: Further evaluation of the cervical spine should be obtained with MR imaging if clinically indicated. CT HEAD WO CONTRAST Final Result 1. Mild subarachnoid hemorrhage in the right parietal region. Follow-up exam recommended. 2. Significant right frontal and biparietal soft tissue swelling. 3. No acute bony abnormalities are noted in the cervical spine. 4. Multilevel cervical spondylosis and degenerative disc disease. Critical results were called by Dr. Cole Garcia MD to Tika Gee NP on 07/17/2024 at 2:15. RECOMMENDATIONS: Further evaluation of the cervical spine should be obtained with MR imaging if clinically indicated. TARAN WEAVER CNP 07/18/2024, 8:28 AM Patient stated that she notice holding her breath while sleeping. Images from the original note were not included. Trauma Tertiary Survey Admit Date: 07/17/2024 Hospital day 0 Subjective: Patient seen and examined. Patient was speaking with her visitor upon entry into the room, in no acute distress. She is reporting diffuse left-sided pain. Patient denies any weakness, numbness, vision changes, dizziness. Objective: PHYSICAL EXAM: Physical Exam Constitutional: General: She is not in acute distress. HENT: Head: Normocephalic and atraumatic. Mouth/Throat: Mouth: Mucous membranes are moist. Eyes: Extraocular Movements: Extraocular movements intact. Pupils: Pupils are equal, round, and reactive to light. Neck: Comments: Paraspinal cervical tenderness with palpation and ROM Cardiovascular: Rate and Rhythm: Normal rate and regular rhythm. Pulses: Normal pulses. Pulmonary: Effort: Pulmonary effort is normal. No respiratory distress. Chest: Chest wall: No tenderness. Abdominal: General: There is no distension. Palpations: Abdomen is soft. Tenderness: There is no abdominal tenderness. There is no guarding or rebound. Musculoskeletal: Comments: Diffuse LUE and LLE tenderness to palpation; Right ankle tenderness to palpation; No midline C/T/L tenderness to palpation Skin: General: Skin is warm and dry. Neurological: General: No focal deficit present. Mental Status: She is alert and oriented to person, place, and time. Sensory: No sensory deficit. Motor: No weakness. Psychiatric: Mood and Affect: Mood normal. Behavior: Behavior normal. Spine: Spine Tenderness ROM Cervical 0 /10 Normal Thoracic 0/10 Normal Lumbar 0/10 Normal Musculoskeletal Joint Tenderness Swelling ROM Right shoulder Absent Absent Absent Left shoulder Present Absent Decreased Right elbow Absent Absent Absent Left elbow Present Absent Decreased Right wrist Absent Absent Absent Left wrist Present Absent Decreased Right hand grasp Absent Absent Absent Left hand grasp Present Absent Decreased Right hip Absent Absent Absent Left hip Absent Absent Absent Right knee Absent Absent Absent Left knee Present Absent Decreased Right ankle Present Absent Decreased Left ankle Present Absent Decreased Right foot Absent Absent Absent Left foot Present Absent Decreased CONSULTS: N/A PROCEDURES: N/A [x] Reviewed radiology reports (All radiology findings correlate to diagnoses/problem list) [] Incidental findings: [] Patient/family notified and letter given Assessment/Plan: # Fall # Mild right parietal SAH # Right frontal and biparietal contusions # Sternal fracture - Repeat head CT stable - PT/OT - Multimodal pain control - Diet: Regular - PPx: SCDs, encourage use of IS Silvia Aquino DO Emergency Medicine, PGY1 [facility] [place]/Trauma Note PATIENT NAME: Briseida Rudd Shift date: 07.17.2024 Shift day: Shift # 1 Room # Name: Briseida Rudd Age: 69 y.o. Gender: female Gnosticism: Unknown Place of taoism: unknown Trauma/Incident type: Adult Trauma Priority Admit Date & Time: 07/17/2024 12:57 PM TRAUMA NAME: None ADVANCE DIRECTIVES IN CHART? No NAME OF DECISION MAKER: None RELATIONSHIP OF DECISION MAKER TO PATIENT: None PATIENT/EVENT DESCRIPTION: Briseida Rudd is a 69 y.o. female who arrived as a TRAUMA PRIORITY due to a fall. Pt to be admitted to . SPIRITUAL [id number] : Patient appears to be calm and coping but in pain. Patient has a boyfriend for support that was brought bedside. Boyfriend appears to be slightly anxious and concerned but coping. Oil Pit Attendant provided space for feelings, thoughts, and concerns. Determined support to be available. Provided hospitality and escorted family. Maintained presence. Patient expressed feelings, provided compassion and support, significant other brought bedside for additional care. PATIENT BELONGINGS: No belongings noted ANY BELONGINGS OF SIGNIFICANT VALUE NOTED: None REGISTRATION STAFF NOTIFIED? Yes WHAT IS YOUR SPIRITUAL CARE PLAN FOR THIS PATIENT?: None . [facility] [phone] 07/17/24 1230 Encounter Summary Encounter Overview/Reason Crisis Service Provided For Patient;Significant other Referral/Consult From Multi-disciplinary team Support System Significant other Last Encounter 07/17/24 Complexity of Encounter High Begin Time 1230 End Time 1300 Total Time Calculated 30 min Crisis Type Trauma (Priority) Assessment/Intervention/Outcome Assessment Calm;Coping Intervention Active listening;Discussed illness injury and it s impact;Explored/Affirmed feelings, thoughts, concerns Outcome Engaged in conversation;Expressed feelings, needs, and concerns;Coping documented in this encounter [facility] 07-21-2024 Hospital Discharg e instructions Tika Gee APRN - CNP - 07/21/2024 1:40 PM EDT Digna Hall RN - 07/20/2024 10:40 AM EDT Continuity of Care Form Patient Name: Briseida Rudd : 1955 Admit date: 07/17/2024 Discharge date: 07/21/24 Code Status Order: Full Code Advance Directives: Advance Care Flowsheet Documentation Admitting Physician: Nelson Doyle MD PCP: No primary care provider on file. Discharging Nurse: Digna Hall RN Discharging Hospital Unit/Room#: 0428/0428-02 Discharging Unit Emergency Contact: Extended Emergency Contact Information Primary Emergency Contact: Rah Foy [address]: [address] [place] [address] Relation: Unknown Fuel Verification Technician needed? No Secondary Emergency Contact: kamran foy Mobile Relation: Child Preferred language: Georgian Fuel Verification Technician needed? No Past Surgical History: No past surgical history on file. Immunization History: There is no immunization history on file for this patient. Active Problems: Patient Active Problem List Diagnosis Code Subarachnoid hemorrhage (HCC) I60.9 Sternal fracture S22.20XA Traumatic cephalohematoma S00.93XA Isolation/Infection: Isolation No Isolation Patient Infection Status None to display Nurse Assessment: Last Vital Signs: BP 126/73 Pulse 89 Temp 97.5 F (36.4 C) (Temporal) Resp 21 Ht 1.6 m (5' 3 ) Wt 66.7 kg (147 lb) SpO2 99% BMI 26.04 kg/m Last documented pain score (0-10 scale): Pain Level: 10 (With movement) Last Weight: Wt Readings from Last 1 Encounters: 07/17/24 66.7 kg (147 lb) Mental Status: oriented, alert, coherent, logical, thought processes intact, and able to concentrate and follow conversation IV Access: - None Nursing Mobility/ADLs: Walking Independent Transfer Assisted Bathing Assisted Dressing Assisted Toileting Assisted Feeding Independent Mineral Industry Teacher Assisted Med Delivery whole Wound Care Documentation and Therapy: Elimination: Continence: Bowel: Yes Bladder: Yes Urinary Catheter: None Colostomy/Ileostomy/Ileal Conduit: No Date of Last BM: 07/21/24 No intake or output data in the 24 hours ending 07/20/24 1040 I/O last 3 completed shifts: In: - Out: 1099 [Urine:1099] Safety Concerns: None Impairments/Disabilities: None Nutrition Therapy: Current Nutrition Therapy: - Oral Diet: General Routes of Feeding: Oral Liquids: Thin Liquids Daily Fluid Restriction: no Last Modified Barium Swallow with Video (Video Swallowing Test): not done Treatments at the Time of Hospital Discharge: Respiratory Treatments: Oxygen Therapy: is not on home oxygen therapy. Ventilator: - No ventilator support Rehab Therapies: Physical Therapy and Occupational Therapy Weight Bearing Status/Restrictions: No weight bearing restrictions Other Medical Equipment (for information only, NOT a DME order): Other Treatments: Patient's personal belongings (please select all that are sent with patient): None RN SIGNATURE: CASE MANAGEMENT/SOCIAL WORK SECTION Inpatient Status Date: Readmission Risk Assessment Score: Readmission Risk Risk of Unplanned Readmission: 8 Discharging to Facility/ Agency Name: Address: Phone: Fax: Dialysis Facility (if applicable) Name: Address: Dialysis Schedule: Phone: Fax: Dyed Yarn Operator/Warp Knitter signature: {Esignature:[id number]} PHYSICIAN SECTION Prognosis: Good Condition at Discharge: Stable Rehab Potential (if transferring to Rehab): Good Recommended Labs or Other Treatments After Discharge: PT/OT Physician Certification: I certify the above information and transfer of Briseida Rudd is necessary for the continuing treatment of the diagnosis listed and that she requires Senior Living Facility for less 30 days. Update Admission H&P: No change in H&P PHYSICIAN SIGNATURE: documented in this encounter [facility] 02-14-2024 Note Education Materials ENT Leave nasal packing in place for 3 to 4 days. Follow-up with your ENT and/or primary care for removal. If you are unable to follow-up with them a referral for ENT has been provided at discharge. If you are unable to make an appoint within 3 to 4 days please return to ER for removal. Prophylactic antibiotics have been sent to your pharmacy, take these as directed. If you develop any systemic symptoms including but not limited to fever, chills, sweats report to ER immediately. If you develop any cough, congestion, chest pain, shortness of breath, difficulty breathing report to ER immediately. You may experience a small amount of bleeding and nasal drainage. If you develop copious amounts please return to ER immediately. Begin to experience any neurological symptoms including but not limited to lightheaded, dizzy, vertigo report to ER immediately. Nosebleed, Adult A nosebleed is when blood comes out of the nose. Nosebleeds are common and can be caused by many things. They are usually not a sign of a serious medical problem. Follow these instructions at home: When you have a nosebleed: ? Sit down. ? Tilt your head forward a little. ? Follow these steps: 1. Pinch your nose with a clean towel or tissue. 2. Keep pinching your nose for 5 minutes. Do not let go. 3. After 5 minutes, let go of your nose. 4. Keep doing these steps until the bleeding stops. ? Do not put tissues or other things in your nose to stop the bleeding. ? Avoid lying down or putting your head back. ? Use a nose spray decongestant as told by your doctor. After a nosebleed: ? Try not to blow your nose or sniffle for several hours. ? Try not to strain, lift, or bend at the waist for several days. ? Aspirin and medicines that thin your blood make bleeding more likely. If you take these medicines: ? Ask your doctor if you should stop taking them or if you should change how much you take. ? Do not stop taking the medicine unless your doctor tells you to. ? If your nosebleed was caused by dryness, use [id number]-jexnrsw saline nasal spray or gel and a humidifier as told by your doctor. This will keep the inside of your nose moist and allow it to heal. If you need to use nasal spray or gel: ? Choose one that is water-soluble. ? Use only as much as you need and use it only as often as needed. ? Do not lie down right away after you use it. ? If you get nosebleeds often, talk with your doctor about treatments. These may include: ? Nasal cautery. A chemical swab or electrical device is used to lightly burn tiny blood vessels inside the nose. This helps stop or prevent nosebleeds. ? Nasal packing. A gauze or other material is placed in the nose to keep constant pressure on the bleeding area. Contact a doctor if: ? You have a fever. ? You get nosebleeds often. ? You get nosebleeds more often than usual. ? You bruise very easily. ? You have something stuck in your nose. ? You are bleeding in your mouth. ? You vomit or cough up brown material. ? You get a nosebleed after you start a new medicine. Get help right away if: ? You have a nosebleed after you fall or hurt your head. ? Your nosebleed does not go away after 20 minutes. ? You feel dizzy or weak. ? You have unusual bleeding from other parts of your body. ? You have unusual bruising on other parts of your body. ? You get sweaty. ? You vomit blood. Summary ? Nosebleeds are common. They are usually not a sign of a serious medical problem. ? When you have a nosebleed, sit down and tilt your head a little forward. Pinch your nose with a clean tissue for 5 minutes. ? Use saline spray or saline gel and a humidifier as told by your doctor. ? Get help right away if your nosebleed does not go away after 20 minutes. This information is not intended to replace advice given to you by your health care provider. Make sure you discuss any questions you have with your health care provider. Document Revised: 10/17/2022 Document Reviewed: 10/17/2022 [employer] Patient Education ? 2022 [employer]. [facility] 07-30-2023 Evaluation note Encounter Date Diagnosis Assessment Notes Jul, Tail bone pain (ICD-10 - M53.3) Negative x-ray. Degenerative changes noted. Discussed still has contusion and soft tissue injury to area. Will Rx as needed naproxen. May use Tylenol in between. Ice encouraged. May use topical muscle rub. Follow-up with PCP if not gradually improving over the next 10 to 12 days. Jul, Acute bilateral thoracic back pain (ICD-10 - M54.6) Negative x-ray. Degenerative changes noted. Discussed still has contusion and soft tissue injury to area. Will Rx as needed naproxen. May use Tylenol in between. Ice encouraged. May use topical muscle rub. Follow-up with PCP if not gradually improving over the next 10 to 12 days. Jul, Contusion of left elbow, initial encounter (ICD-10 - S50.02XA) No significant pain or limited range of motion to left elbow joint. Does have contusion. Discussed swelling and bruising may increase before it starts to get better. Ice and elevation encouraged. May alternate Tylenol and ibuprofen for discomfort. Follow-up with PCP if not gradually improving over the next week. [employer] Other 10-20-2021 Evaluation note* Encounter Date Diagnosis Assessment Notes Treatment Notes Treatment Clinical Notes Jul, Encounter for screening for other viral diseases (ICD-10 - Z11.59) Jul, Other Additional time spent conducting pre-visit phone call, screening for symptoms, instructions on social distancing, application and removal of PPE, and cleaning of examination room, equipment and supplies was preformed. Patient education given for testing methodology and results. Patient care instructions given in writting by [facility] Care At Home document. [employer] Other Evaluation + Plan note No data available for this section [facility] note[facility] assessment information available [facility] Work Phone: Evaluation note* Diagnosis Cervical pain Cervicalgia documented in this encounter [facility] [place] [facility]* Diagnosis Pain, neck- Primary [facility] Diagnosis Pain, neck- Primary [facility]* Diagnosis Pain, neck- Primary [facility]* Diagnosis Pain, neck- Primary [facility]* Diagnosis Closed head injury with brief loss of consciousness- Primary Concussion with loss of consciousness of unspecified duration Fall, initial encounter documented in this encounter [facility]* Diagnosis Subarachnoid hemorrhage (HCC)- Primary Subarachnoid hemorrhage Subarachnoid hemorrhage (HCC) Subarachnoid hemorrhage Closed fracture of sternum, unspecified portion of sternum, initial encounter Sternal fracture Closed fracture of sternum Traumatic cephalohematoma Contusion of face, scalp, and neck except eye(s) documented in this encounter ATUL SHELDON [facility] general Narrative - Reported* Type Description Date Medical History asthma Medical History chronic depression [employer] Other Hospital Discharge instructions No data available for this section [facility] No data available for this section [facility] Narrative* Rehabilitation - Outpatient (Routine) - Authorized Specialty Diagnoses / Procedures Referred By Gema porter Referred To Contact Physical Therapy Diagnoses Cervicalgia Procedures OK PHYSICAL THERAPY EVALUATION LOW COMPLEX 20 MINS Crista Vences MD [address] [place] [address] Phone: tel: fax: Ti Wells, PT [address] [address] Phone: tel: fax: Referral ID Status Reason Start Date Expiration Date V isits Requested Visits Authorized [id number] Authorized 09/04/2024 03/03/2025 99 99 [facility] Summary Purpose Family History No Family History Records FoundNo Family History Records FoundNo Family History Records FoundNo Family History Records FoundNo Family History Records FoundNo Family History Records FoundNo Family History Records FoundNo Family History Records Found Advance Directives No Advanced Directives Records Found Date Activated Date Inactivated Comments 07/17/2024 4:51 PM 07/21/2024 5:53 PM Healthcare Agents on File Name Relationship Healthcare Agent Relationshi p Communication Rah Foy Unknown Primary Decision Maker Kamran Foy Child Secondary Decision Maker Healthcare Agents on File Name Relationship Healthcare Agent Relationshi p Communication Rah Foy Unknown Primary Decision Maker Kamran Foy Child Secondary Decision Maker Date Activated Date Inactivated Comments 07/17/2024 4:51 PM Healthcare Agents on File Name Relationship Healthcare Agent Relationshi p Communication Rah Foy Unknown Primary Decision Maker Kamran Foy Child Secondary Decision Maker Reason for Referral Specialty Diagnoses / Procedures Referred By Contac t Referred To Contact Occupational Therapy Diagnoses Subarachnoid hemorrhage (HCC) Closed fracture of sternum, unspecified portion of sternum, initial encounter JdRo gooden, SECURITY INVESTIGATOR - [employer] COMP[employer] [address] [address] Referral ID Status Reason Start Date Expiration Date V isits Requested Visits Authorized [id number] Open Specialty Services Required 07/21/2024 01/17/2025 1 1 Question Answer Reason For External Referral? Location Comments The patient can be scheduled with any member of the group, including the provider with the first available appointments. Specialty Diagnoses / Procedures Referred By Contac t Referred To Contact Physical Therapy Diagnoses Subarachnoid hemorrhage (HCC) Closed fracture of sternum, unspecified portion of sternum, initial encounter Ro Dorman, SECURITY INVESTIGATOR - [employer] COMPTRO[employer]ER [address] [address] Referral ID Status Reason Start Date Expiration Date V isits Requested Visits Authorized [id number] Open Specialty Services Required 07/21/2024 01/17/2025 1 1 Additional Source Comments INFORMATION SOURCE (unrecogn ized section and content) DATE CREATED AUTHOR 12/16/2021 [facility] DATE CREATED AUTHOR AUTHOR'S ORGANIZ ATION 08/03/2023 [facility] DATE CREATED AUTHOR AUTHOR'S ORGANIZ ATION 02/28/2024 [facility] DATE CREATED AUTHOR AUTHOR'S ORGANIZ ATION 09/17/2024 [facility] EPIC DATE CREATED AUTHOR AUTHOR'S ORGANIZ ATION 10/02/2024 [facility] DATE CREATED AUTHOR AUTHOR'S ORGANIZ ATION 12/27/2024 [facility] DATE CREATED AUTHOR AUTHOR'S ORGANIZ ATION 01/11/2025 [facility] DATE CREATED AUTHOR AUTHOR'S ORGANIZ ATION 02/26/2025 [facility] REASON FOR VISIT (unrecogniz ed section and content) Reason Onset Date Comments re: More PT? 09/22/2024 Contacted to michaeal miles if more PT is needed; she cx her last PT on 09/17. She said she'd like to wait till after fu w/ Dr. Vences on 09/29; she said she'd contact w/ recommendation. Reason Comments Fall Specialty Diagnoses / Procedures Referred By Contac t Referred To Contact Diagnoses Subarachnoid hemorrhage (HCC) SAH (subarachnoid hemorrhage) (HCC) Nelson Doyle MD [address] [place] [address] [facility] [address] [place] [address] Referral ID Status Reason Start Date Expiration Date Visits Re quested Visits Authorized [id number] 1 1 Reason Comments Release Of Medical Records Care Teams (unrecognized sec tion and content) Security Coordinator Relationship Specialty Start Date End Date Thomas Martin MD [address] [place] [address] [phone] PCP - General Internal Medicine 02/18/24 Security Coordinator Relationship Specialty Start Date End Date Thomas Martin DO [address] [place] [phone] PCP - General Internal Medicine 08/27/24 Team Status: Inactive Member Role Status Dates Dorothy Chowdhury APRN Attending Provider Active Goals (unrecognized section and content) Goals may be documented in a n alternate section Scheduled Active and Recently Administ ered Medications (unrecognized section and content) Medication Order 07/15/2024 07/16/2024 07/17/2024 morphine injection 4 mg (COMPLETED) 4 mg, IntraVENous, ONCE, 1 dose, On Jocelyn 07/17/24 at 1245, If oral and IV narcotics ordered, use oral first and only use IV if oral is ineffective or cannot take oral. Do Not give oral and IV within 1 hour of each other unless specifically ordered. 1236 (Given - Provid er: Martha Silva RN) ondansetron (ZOFRAN) injection 4 mg (COMPLETED) 4 mg, IntraVENous, ONCE, 1 dose, On Jocelyn 07/17/24 at 1245 1236 (Given - Provid er: Martha Silva RN) Scheduled Medication Order 07/19/2024 07/20/2024 07/21/2024 acetaminophen (TYLENOL) tablet 1,000 mg 1,000 mg, Oral, EVERY 8 HOURS SCHEDULED (3 times per day), First dose on Jocelyn 07/17/24 at 2200, Until Discontinued, Maximum dose of acetaminophen is 4000 mg from all sources in 24 hours. 0522 (Given - Provider: Annemarie Gomez RN)1345 (Given - Provider: Roberta Roberts RN)1999 (Given - Provider: Annemarie Gomez RN) 0538 (Given - Provider: Annemarie Gomez RN)122 (Given - Provider: Shon Rogers RN)2033 (Given - Provider: Annemarie Gomez RN) 0516 (Given - Provider: Annemarie Gomez RN)1425 (Given - Provider: Digna Hall RN)2200 (Due) enoxaparin Sodium (LOVENOX) injection 30 mg 30 mg, SubCUTAneous, 2 TIMES DAILY, First dose on 07/19/24 at 0900, Until Discontinued, Indication of Use: Prophylaxis-DVT/PE, Administer by deep subCUTAneous injection with pt lying down. Alternate injection sites on abdominal wall. Do not rub site after injection. Check with provider prior to any invasive procedure. 0836 (Given - Provider: Roberta Roberts RN)1958 (Given - Provider: Annemarie Gomez RN) 0841 (Given - Provider: Shon Rogers RN)2034 (Given - Provider: Annemarie Gomez RN) 1004 (Given - Provider: Digna Hall RN)2100 (Due) gabapentin (NEURONTIN) capsule 300 mg 300 mg, Oral, 3 TIMES DAILY, First dose on Jocelyn 07/17/24 at 1700, Until Discontinued 0836 (Given - Provider: Roberta Roberts RN)1344 (Given - Provider: Roberta Roberts RN)1958 (Given - Provider: Annemarie Gomez RN) 0841 (Given - Provider: Shon Rogers RN)1220 (Given - Provider: Shon Rogers RN)203 (Given - Provider: Annemarie Gomez RN) 100 (Given - Provider: Digna Hall RN)142 (Given - Provider: Digna Hall RN)2100 (Due) ibuprofen (ADVIL;MOTRIN) tablet 400 mg 400 mg, Oral, 3 TIMES DAILY WITH MEALS, First dose on Jocelyn 07/17/24 at 1730, Until Discontinued 0836 (Given - Provider: Roberta Roberts RN)1132 (Given - Provider: Roberta Roberts RN)1649 (Given - Provider: Roberta Roberts RN) 0841 (Given - Provider: Shon Rogers RN)1220 (Given - Provider: Shon Rogers RN)180 (Given - Provider: Shon Rogers RN) 100 (Given - Provider: Digna Hall RN)143 (Given - Provider: Digna Hall RN)1700 (Due) methocarbamol (ROBAXIN) tablet 750 mg 750 mg, Oral, 4 TIMES DAILY, First dose on Jocelyn 07/17/24 at 1700, Until Discontinued 0836 (Given - Provider: Roberta Roberts RN)1132 (Given - Provider: Roberta Roberts RN)1650 (Given - Provider: Roberta Roberts RN)195 (Given - Provider: Annemarie Gomez RN) 0840 (Given - Provider: Shon Rogers RN)1220 (Given - Provider: Shon Rogers RN)180 (Given - Provider: Shon Rogers RN)203 (Given - Provider: Annemarie Gomez RN) 1005 (Given - Provider: Digna Hall RN)142 (Given - Provider: Digna Hall RN)1700 (Due)2100 (Due) montelukast (SINGULAIR) tablet 10 mg 10 mg, Oral, NIGHTLY, First dose on 07/19/24 at 2100, Until Discontinued 1958 (Given - Provider: Annemarie Gomez RN) 2034 (Given - Provider: Annemarie Gomez RN) 2099 (Due) nitrofurantoin (macrocrystal-monohydrat e) (MACROBID) capsule 100 mg 100 mg, Oral, EVERY 12 HOURS SCHEDULED (2 times per day), 10 doses, First dose on Sun07/19/24 at 0900, Last dose on Sun07/23/24 at 2100, Antimicrobial Indications: Urinary Tract Infection, UTI duration of therapy: 5 days 0835 (Given - Provider: Roberta Roberts RN)2046 (Given - Provider: Annemarie Gomez RN) 0841 (Given - Provider: Shon Rogers RN)2034 (Given - Provider: Annemarie Gomez RN) 100 (Given - Provider: Digna Hall RN)2099 (Due) polyethylene glycol (GLYCOLAX) packet 17 g 17 g, Oral, DAILY, First dose on Sun07/17/24 at 1700, Until Discontinued, Stir and dissolve one packet of powder (17 g) in any 4 to 8 ounces of beverage (cold, hot or room temperature) then drink 0835 (Given - Provider: Roberta Roberts RN) 0840 (Given - Provider: Shon Rogers RN) 100 (Given - Provider: Digna Hall RN) sennosides-docusate sodium (SENOKOT-S) 8.6-50 MG tablet 1 tablet 1 tablet, Oral, 2 TIMES DAILY, First dose on Sun07/17/24 at 2100, Until Discontinued 0836 (Given - Provider: Roberta Roberts RN)1957 (Given - Provider: Annemarie Gomez RN) 08 (Given - Provider: Shon Rogers RN)2034 (Given - Provider: Annemarie Gomez RN) 100 (Given - Provider: Digna Hall RN)2099 (Due) PRN Medication Order 07/19/2024 07/20/2024 07/21/2024 aluminum & magnesium hydroxide-simethicone (MAALOX) 200-200-20 MG/5ML suspension 30 mL 30 mL, Oral, EVERY 6 HOURS PRN, Starting on Sun07/17/24 at 1650, Until Discontinued, Indigestion eqcfwythjm-kehbnfsmywaws-pdfxckiu (FIORICET, ESGIC) per tablet 1 tablet 1 tablet, Oral, EVERY 4 HOURS PRN, Starting on Sun07/18/24 at 1344, Until Discontinued, Headaches, Maximum dose of acetaminophen is 4000 mg from all sources in 24 hours. ondansetron (ZOFRAN) injection 4 mg 4 mg, IntraVENous, EVERY 8 HOURS PRN, Starting on Sun07/18/24 at 1011, Until Discontinued, Nausea, Vomiting oxyCODONE (ROXICODONE) immediate release tablet 5 mg 5 mg, Oral, EVERY 4 HOURS PRN, Starting on Sun07/17/24 at 1650, Until Discontinued, Pain Moderate (4-6) Ordered Prescriptions (unrec ognized section and content) Prescription Sig Dispensed Refills Start Date End Da te sennosides-docusate sodium (SENOKOT-S) 8.6-50 MG tablet Take 1 tablet by mouth 2 times daily 60 tablet 07/21/2024 nitrofurantoin, macrocrystal-monohydrat e, (MACROBID) 100 MG capsule Take 1 capsule by mouth every 12 hours for 2 days 4 capsule 07/21/2024 07/23/2024 methocarbamol (ROBAXIN) 750 MG tablet Take 1 tablet by mouth 4 times daily for 10 days 40 tablet 07/21/2024 07/31/2024 gabapentin (NEURONTIN) 300 MG capsule Take 1 capsule by mouth 3 times daily for 7 days. 21 capsule 07/21/2024 07/28/2024 butalbital-acetaminophe n-caffeine (FIORICET, ESGIC) 50-325-40 MG per tabletIndications:Subar achnoid hemorrhage (HCC) Take 1 tablet by mouth every 4 hours as needed for Headaches Max Daily Amount: 6 tablets 30 tablet 07/21/2024 polyethylene glycol (GLYCOLAX) 17 g packet Take 1 packet by mouth daily 30 packet 07/20/2024 08/19/2024 aspirin 81 MG chewable tablet Take 1 tablet by mouth daily 30 tablet 3 07/31/2024 sennosides-docusate sodium (SENOKOT-S) 8.6-50 MG tablet Take 1 tablet by mouth 2 times daily 60 tablet 07/19/2024 07/21/2024 nitrofurantoin, macrocrystal-monohydrat e, (MACROBID) 100 MG capsule Take 1 capsule by mouth every 12 hours for 9 doses 9 capsule 07/19/2024 07/21/2024 methocarbamol (ROBAXIN) 750 MG tablet Take 1 tablet by mouth 4 times daily for 10 days 40 tablet 07/19/2024 07/21/2024 gabapentin (NEURONTIN) 300 MG capsule Take 1 capsule by mouth 3 times daily for 7 days. 21 capsule 07/19/2024 07/21/2024 butalbital-acetaminophe n-caffeine (FIORICET, ESGIC) 50-325-40 MG per tabletIndications:Subar achnoid hemorrhage (HCC) Take 1 tablet by mouth every 4 hours as needed for Headaches Max Daily Amount: 6 tablets 180 tablet 07/19/2024 07/21/2024 Source Comments (unrecognize d section and content) In the event this informatio n is protected by the Federal Confidentiality of Alcohol and Drug Abuse Patient Records regulations: The Federal rules restrict any use of the information to criminally investigate or prosecute any alcohol or drug abuse patient.[facility] FOR RECORDS PERTAINING TO PATIENTS WHO ARE OR HAVE BEEN ENROLLED IN A CHEMICAL DEPENDENCY/SUBSTANCEABUSE PROGRAM, SOME INFORMATION MAY BE OMITTED. This clinical summary was aggregated from multiple sources. Caution should be exercised in using it in the provision of clinical care. This summary normalizes information from multiple sources, and as a consequence, information in this document may materially change the coding, format and clinical context of patient data. In addition, data may be omitted in some cases. CLINICAL DECISIONS SHOULD BE BASED ON THE PRIMARY CLINICAL RECORDS. [employer] provides no warranty or guarantee of the accuracy or completeness of information in this document.
[2025-03-11 06:40] VITALS: BP 124/79; PULSE 63; TEMP 36.2; O2SAT 95; BMI 26.1
[2025-03-11] MEDS: 0.9 % SODIUM CHLORIDE 500 ML 50 ML IV (07:34)
[2025-03-11] MEDS: LACTATED RINGER'S SOLUTION 1,000 ML 50 ML IV (08:45)
[2025-03-11 09:04] VITALS: BP 122/80; PULSE 82; TEMP 36.2; O2SAT 97
[2025-03-11 09:19] VITALS: BP 124/65; PULSE 70; O2SAT 95
[2025-03-11 09:34] VITALS: BP 142/80; PULSE 67; O2SAT 97
== END 2025-03-11 09:45 | disposition home or self-care (01) ==
PROVIDERS: PCP Internal Medicine; Visit Provider Surgery
PROC: (CPT 45380; principal; 2025-03-11 08:00)
DX: R19.5 Other fecal abnormalities (principal); D12.0 Benign neoplasm of cecum; D12.5 Benign neoplasm of sigmoid colon; Z80.0 Family history of malignant neoplasm of digestive organs; E78.5 Hyperlipidemia, unspecified; J45.909 Unspecified asthma, uncomplicated; K21.9 Gastro-esophageal reflux disease without esophagitis; F32.A Depression, unspecified; Z90.710 Acquired absence of both cervix and uterus
CPT/HCPCS: 45380; 45385; J2405; J2704